=== PATIENT | female | born 1995 | race Caucasian/White ===

== ENCOUNTER → 2018-01-17 16:33 | Outpatient (CLI) | payer SELFPAY ==
[2018-01-17 17:47] LABS: Thyroid Stim Hormone (TSH) 2.16 uIU/mL (0.358-3.74)
== END ==
PROVIDERS: Visit Provider Obstetrics & Gynecology
DX: N92.6 Irregular menstruation, unspecified (principal)
CPT/HCPCS: 36415; 84443

== ENCOUNTER → 2018-11-12 14:30 | Outpatient (CLI) | payer SELFPAY ==
[2018-11-12 17:28] LABS: Chlamydia Trachomatis by PCR Negative (Negative); Neisserai gonorrhoeae by PCR Negative (Negative); Probe Check PASS; Sample Adequacy Control PASS; Specimen Processing Control PASS
[2018-11-17 14:25] LABS: HPV Reflexed? NOT INDICATED
== END ==
PROVIDERS: Visit Provider Obstetrics & Gynecology
DX: Z12.4 Encounter for screening for malignant neoplasm of cervix (principal); Z11.3 Encounter for screening for infections with a predominantly sexual mode of transmission
CPT/HCPCS: 87491; 87591; 87624; 88175; G0145

== ENCOUNTER → 2018-11-26 09:51 | Outpatient (CLI) | payer SELFPAY ==
[2018-11-26 10:46] LABS: Absolute Lymphocyte Count 1.41 X10^3/ul (0.83-4.51); Absolute Neutrophil Count 6.8 X10^3/uL (2.0-7.7); Basophil# 0.02 X10^3/uL; Basophil% 0.2 % (0-1); Eosinophils% 1.1 % (0-5); Hematocrit 36.9 % (37-47); Hemoglobin 12.7 g/dl (12.0-15.0); Lymphocyte # 1.41 X10^3/ul (4.0); Lymphocyte % 16.1 % (19-41); Mean Corp Hgb Conc 34.4 g/gl (32-36); Mean Corpuscular Hgb 30.7 pg (27.0-32.0); Mean Corpuscular Volume 89.1 fL (81-99); Mean Platelet Vol. 10.2 fl (6.2-12.0); Monocyte# 0.39 X10^3/uL; Monocyte% 4.4 % (0-10); Neutrophil # 6.78 X10^3/uL (2.7-7.7); Neutrophil % 77.4 % (47-70); Platelet Count 233 K/mm3 (150-450); Red Blood Count 4.14 M/mm3 (4.2-5.4); White Blood Count 8.8 K/mm3 (4.4-11.0)
[2018-11-26 10:48] LABS: POSITIVE COUNT NO; POSITIVE DIFFERENTIAL NO; POSITIVE MORPHOLOGY NO
[2018-11-26 10:49] LABS: Color, Urine Yellow (Yellow); Glucose, Dipstick 250 mg/dl (Normal); Ketone-Dipstick 50 mg/dl (Negative); Leukocyte Esterase-Dipstick 500 /ul (Negative); Nitrite-Dipstick Negative (Negative); Occult Blood-Urine 10 /ul (Negative); Protein-Dipstick 15 mg/dl (Negative); Specific Gravity, Urine 1.025 (1.002-1.030); Urine Bilirubin Dipstick Negative (Negative); Urine Clarity Sl. Cloudy (Clear); Urine Urobilinogen Normal (Normal)
[2018-11-26 11:21] LABS: Thyroid Stim Hormone (TSH) 1.23 uIU/mL (0.358-3.74)
[2018-11-26 11:54] LABS: HIV - WCH Non-Reactive (Nonreactive); Rubella IgG 18.1 IU/mL
[2018-11-26 18:04] LABS: Hemoglobin A1c 4.1 % (4.2-6.3)
[2018-11-27 16:50] LABS: HEPATITIS B SURFACE AG Negative (Negative); Hep C Antibodies <0.1 s/co ratio (0.0-0.9)
[2018-11-28 01:45] LABS: Prenatal RPR NONREACTIVE (NONREACTIVE)
== END ==
PROVIDERS: Visit Provider Obstetrics & Gynecology
DX: Z34.82 Encounter for supervision of other normal pregnancy, second trimester (principal)
CPT/HCPCS: 36415; 81002; 83036; 84443; 85025; 86703; 86762; 86803; 87086; 87088; 87340

== ENCOUNTER → 2019-03-18 13:08 | Outpatient (CLI) | payer SELFPAY ==
[2019-03-18 14:54] LABS: Glucose Challenge Gest 1H 50g 155 mg/dL (70-140)
[2019-03-18 14:55] LABS: Hematocrit 34.3 % (37-47); Hemoglobin 11.2 g/dL (12.0-15.0); Mean Corp Hgb Conc 32.7 g/dL (32-36); Mean Corpuscular Hgb 30.3 pg (27.0-32.0); Mean Corpuscular Volume 92.7 fL (81-99); Mean Platelet Vol. 10.5 fl (6.2-12.0); Platelet Count 211 K/mm3 (150-450); RBC Distribution Width CV 15.4 % (11.6-14.6); RBC Distribution Width SD 52.2 fl (35.1-43.9); White Blood Count 9.7 K/mm3 (4.4-11.0)
== END ==
PROVIDERS: Visit Provider Obstetrics & Gynecology
DX: Z34.83 Encounter for supervision of other normal pregnancy, third trimester (principal)
CPT/HCPCS: 36415; 82950; 85027

== ENCOUNTER → 2019-03-25 07:04 | Outpatient (CLI) | payer SELFPAY ==
[2019-03-25 08:00] LABS: Glucose GTT-Gestation. Fasting 96 mg/dL (<105)
[2019-03-25 09:05] LABS: Glucose GTT-Gestational 1 Hr 237 mg/dL (<190)
[2019-03-25 09:58] LABS: Glucose GTT-Gestational 2 Hr 235 mg/dL (<165)
[2019-03-25 11:26] LABS: Glucose GTT-Gestational 3 Hr 137 L (<145)
== END ==
PROVIDERS: Family Provider Orthopaedic Surgery; PCP Orthopaedic Surgery; Referring Provider Obstetrics & Gynecology; Visit Provider Obstetrics & Gynecology
DX: O24.912 Unspecified diabetes mellitus in pregnancy, second trimester (principal); Z3A.00 Weeks of gestation of pregnancy not specified
CPT/HCPCS: 36415; 82951; 82952

== ENCOUNTER 2019-04-15 15:30 | Outpatient (RCR) | payer SELFPAY | END 2019-04-15 23:59 | disposition home or self-care (01) | LOC: DC 15:30 | PROVIDERS: Family Provider Orthopaedic Surgery; PCP Orthopaedic Surgery; Visit Provider Obstetrics & Gynecology | DX: Z71.3 Dietary counseling and surveillance (principal); O24.410 Gestational diabetes mellitus in pregnancy, diet controlled; Z3A.00 Weeks of gestation of pregnancy not specified | CPT/HCPCS: 97802 ==

== ENCOUNTER → 2019-05-20 13:30 | Outpatient (CLI) | payer SELFPAY | PROVIDERS: Family Provider Orthopaedic Surgery; PCP Orthopaedic Surgery; Visit Provider Obstetrics & Gynecology | DX: Z36.85 Encounter for antenatal screening for Streptococcus B (principal) | CPT/HCPCS: 87081 ==

== ENCOUNTER 2019-06-10 06:50 | Inpatient (IN) | payer SELFPAY ==
[2019-06-10] MEDS: Lactated Ringers 1,000 ML 50 ML IV (07:40)
[2019-06-10] MEDS: Oxytocin 30 units/NS 500 ml 30 UNITS/500 ML IV.SOLN IV (07:47)
[2019-06-10 07:58] LABS: Absolute Lymphocyte Count 1.13 X10^3/uL (0.83-4.51); Absolute Neutrophil Count 6.5 X10^3/uL (2.0-7.7); Basophil# 0.05 X10^3/uL; Basophil% 0.6 % (0-1); Eosinophil# 0.07 X10^3/uL; Eosinophils% 0.8 % (0-5); Hematocrit 35.3 % (37-47); Hemoglobin 11.9 g/dL (12.0-15.0); Lymphocyte # 1.13 X10^3/ul (4.0); Mean Corp Hgb Conc 33.7 g/dL (32-36); Mean Corpuscular Hgb 30.7 pg (27.0-32.0); Mean Corpuscular Volume 91.2 fL (81-99); Mean Platelet Vol. 10.7 fl (6.2-12.0); Monocyte% 8.1 % (0-10); NRBC Flagged by Analyzer 0 % (0-5); Neutrophil # 6.46 X10^3/uL (2.7-7.7); Neutrophil % 74.6 % (47-70); Platelet Count 184 K/mm3 (150-450); RBC Distribution Width CV 15.9 % (11.6-14.6); Red Blood Count 3.87 M/mm3 (4.2-5.4); White Blood Count 8.7 K/mm3 (4.4-11.0)
[2019-06-10 08:09] VITALS: BMI 32.5
--- NOTE | 2019-06-10 08:34 | HP.PCM_ITS ---
History and Physical Date of Admission: 06/10/19 [facility] [place] ANTEPARTUM RECORD - HISTORY AND PHYSICAL (06/10/2019) Name: MIKAYLA MUÑOZ History of This : This is a 24-year-old patient who presents for induction at 39 weeks gestation. care has been remarkable for diet controlled gestational diabetes. OB Physician: ANANYA 's Physician: PED LEAD INFORMATICA DEVELOPER ...................................................................... : 1995 Age: 24 Address: [address] [place] [address] Phone: (h) [phone] ([phone] Insurance Carrier: Emergency Contact: ARCADIO MUÑOZ [phone] ...................................................................... Final SUGAR: 06/12/19 By Ultrasound: 11 weeks 5 days PARITY: (G-Total Pregnancies P-Fullterm,Premature,Induced AB,Spont AB, Ectopics, Multiple,Living) SUGAR CONFIRMATION: By LMP: 09/08/18 By First Ultrasound Exam: 06/12/19 Final SUGAR: 06/12/19 GBS: Original Ordering Provider: Cynthia WALTERS Culture Group B Beta Streptococcus is not isolated. Rublla titer (>10 immune)--Jan 30 2011: 12 OB PROBLEM LIST: abnormal glucola 155 3 hr GTT ABNORMAL. Results to chart on 03/27/19 ALLERGIC to LATEX! 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 Bring in sugar record to PNV MSAFP and CF testing declined ALLERGIES: Latex Generalized rash NKDA MEDICATIONS: 28 mg iron-800 mcg tablet One pill by mouth once a day SOCIAL HISTORY: Smoking - Never Alcohol Use - denies drinking Diet - no special diet Lifestyle - moderate stress lifestyle and Exercise - minimal Employer - [employer] Job Description - [employer] Illicit Drug Use - denies use of street drugs Sexual Activity - and [employer] Residence - lives with Place of - [place], [place] Hours Worked - 20 WK Spouse-Sig Other Name - Arcadio Spouse-Sig Other Occupation - [employer] Spouse-Sig Other Phone No - [phone] Children Name(s) - Cheryl(12) PRIOR DELIVERY HISTORY DEL DATE GEST LAB WT LB WT OZ TYPE ANES LABOR TX 12 Jul 12 [phone] Vag Epidural No ANTEPARTUM FLOW CHART VISIT GE RTC FU F F KS U U DATE WK MD WKS HT PN HR M SS BP ED WT KS GL D EF ST __ ____ ___ __ __ ___ __ __ __ ___ __ __ __ ___ __ 09 May CH 6 40 V + + 120/80 sl 177 tr - 1 25 hi 04 May JMW 1 38 V + + 114/72 sl 177 - - 2 50 -2 27 May JMW 1 37 V + + 120/62 0 175 tr - S May JMW 1 36 V + + 104/78 0 175 - - 1 50 -2 May JMW 1 35 + + 104/80 0 175 - - 30 Mar JMW 2 34 + + 100/80 sl 174 - - 16 Apr 30 JMW 2 32 V + + 100/60 sl 176 - - 30 Mar 29 ELB 2 29 - + + 112/70 sl 178 - - 18 Mar 27 JMW 2 28 + + 122/64 0 179 - - Feb 20 JMW 4 25 + + 110/70 0 176 - 1+ Jan 16 JMW 4 20 + + 134/70 0 174 tr - 26 Dec 13 JMW 4 15 + + 138/68 0 172 - - November 08 JMW 4 on 118/70 171 - - ANTEPARTUM NOTE(S): Jun 08 2019: feeling well. Cervix check. Jun 03 2019: Ctxs-occas, Good FM May 27 2019: feeling well. Cervix check. May 20 2019: GBS and LARC done today. May 14 2019: feeling well. Apr 29 2019: feeling well., BSs ok Apr 15 2019: feeling well., blood sugars OK Mar 30 2019: feeling well. Asking about gestational diabetes. Mar 18 2019: CBC,OGCT Today,Good FM,Feeling Well Feb 18 2019: feeling well. Glucola given. Jan 21 2019: Sono Today,Good FM,Feeling Well Dec 24 2018: Fatigue and Nausea Better,Declines AFP,CF Nov 26 2018: Doing Well COMPREHENSIVE ANTEPARTUM NOTE(S): Jun 08 2019: (f,m*) here today for routine PNV and requesting induction after speaking with Dr. Solano about it last week. SVE 07/25/high soft mid. For first she was induced with a hoskins bulb and pitocin at only 2cm. After reviewing cytotec vs hoskins and pitocin she wishes to come in AM on 06/10 for hoskins and pitocin induction with Dr. Solano. If he is education reporter she prefers him only for delivery. Called L, she is to report at 7am Saturday morning. Consents signed. FHR 138. +FM. Denies ROM or bleeding. - May 26 2019: H taken to OB. tkg May 14 2019: Feeling well; reports active FM; frequent BH UCs, denies VB, LOF; discussed warning signs, s/s Labor, when to call/come in; blood glucose numbers reviewed, 25 percent slightly above target, pt states was advised did not need to check fasting any longer; reviewed w/Dr. Solano RTO 1 week for PNV, GBS swab - KVW Apr 15 2019: Met with construction representative two weeks. Reports fasting blood sugar in the 80s, reports nothing higher than 125 for post prandials. Left log at home, but instructed to bring in for future visits. Rx given for more glucometer strips. +FM. FHR 140. No complaints or concers this visit. Reviewed ROM, bleeding, or regular UC to call or report to ER. - Mar 30 2019: Reviewed gestational diabetes. Has not made appt yet with construction representative. Recommend watch CHOs. EB Mar 20 2019: Hgb 11.2 g/dl. Glucola 155 needs 3 hr GTT. EB Mar 18 2019: Feeling well; reports active FM; denies UCs, VB, LOF; 1 hour Glucola and bloodwork drawn today; discussed warning signs, s/s PTL; RTO 2 weeks for PNV - KVW Feb 18 2019: Feeling well; reports active FM, denies UCs, VB, LOF; discussed s/s PTL, s/s to report; considering , encouraged practice class. Glucola at next visit Nov 26 2018: Mikayla is here for her NOB visit at 11 w 5 d, she is a with an SUGAR of 06/12/2019. US completed, and she will see Dr. Solano for a PNV and have labs drawn following NOB visit. Office practice patterns reviewed, including labs that will be collected today. Emergencies/danger signs to report, round ligament pain, reporting s/s of a UTI, and common OTC medications approved/not approved for use during reviewed. She and her , Arcadio, have a 7 year old daughter. Her daughter was delivered at [facility] following induction of labor. Past history updated. Delivery at [facility] is planned, she is undecided about an epidural, and states that that while she is undecided about feeding method, she will likely formula feed. [facility] sibling class and guided group tours discussed, times and dates for tour provided. Mikayla states that she is feeling pretty well now, she relates much more nausea last week. Encouraged small frequent meals with protein included throughout the day, and adequate water hydration of at least 1 gallon per 24 hours. She is able to take an OTC vitamin and tolerates this well. Mikayla is a non-smoker, and denies use of drugs or ETOH. Genetic Screening completed. She declines MSAFP and CF testing, consent signed as such. Dietary and water needs reinforced, including recommended weight gain, caloric needs, limiting empty calories, and limiting caffeine to one cup a day. Printed guide for food safety provided with review. Kegel exercises explained. Reviewed recommended physical activity, and lifting restrictions. Mikayla states that she understands all information provided during NOB visit, and has no questions following same. AW New Nov 13 2018: GC and chlamydia are NEG. EB Nov 12 2018: Mikayla presents here today for Missed Menses appointment. 23 y.o. G 2 P 1 non-smoker with regular menses after use of Prometrium, with LMP of 09-08-18 lasting 5 days. UPT is positive today in our Office. Presents at 9 weeks 2 days with an approximate SUGAR of 12-16-19 and plans at [facility]. Denies spotting/bleeding thus far in . Reports daily nausea and admits she would like to try keeping it under control without an Rx if possible. Currently taking an OTC Vitamin and Educational Materials given. Has never had a pap screening with same set up for today. Medication list up-dated. LATANYA Nov 12 2018: ok REVIEW OF SYSTEMS: GENERAL - Denies fever, or chills SKIN - Denies rash, new skin lesions, or change in moles EYES - Denies blurred vision, or change in visual acuity EARS - Denies ear pain, or difficulty hearing NOSE - Denies nasal congestion, discharge, or bleeding MOUTH - Denies sore throat, or difficulty swallowing NECK - Denies pain or swelling RESPIRATORY - Denies shortness of breath, cough, wheezing CARDIOVASCULAR - Denies palpitations, chest pain, orthopnea, PND, peripheral edema, syncope or claudication GASTROINTESTINAL - Denies nausea, vomiting, diarrhea, constipation, Denies abdominal pain, melena and or bright red blood GENITOURINARY - Denies dysuria, frequency of urination, urgency, or hesitancy MUSCULOSKELETAL - Denies joint or muscle pain, or back pain NEUROLOGICAL - Denies localized numbness, weakness, or tingling PSYCHIATRIC - Denies depression, anxiety, substance abuse or suicide attempts ENDOCRINE - Denies heat or cold intolerance, weight loss or gain, increasing thirst HEMATO-IMMUNOLOGIC - Denies easy bruising, bleeding, oral ulcerations or recurrent infections GENETICS SCREENING: Age 35+ years: No Thalassemia: No Neural Tube Defect: No Down Syndrome: No DORIS-SACHS: No Sickle Cell Disease: No Hemophilia: No Musc. Dystrophy: No Cystic Fibrosis: No-declines screening [place] Chorea: No Mental Retardation: No Fragile X: No Other genetic: No Other defects: No SABs/still births: No Drugs since LMP: No Comments: FOB's sister has severe developmental disabilities INFECTION HISTORY: High risk AIDS: No High risk Hepatitis: No Exposed to TB: No Exposed to Herpes: No Rash/viral illness since LMP: No History of STD: No MENSTRUAL HISTORY: *Menses Amount/Duration: 5 daysMenses Regularity: RegularFrequency: monthlyBCP's at Conception: NoMenarche (Age Onset): 10HCG+: 12/26/2010* PAST SUMMARY: PARITY: 1. Total Pregnancies............ 2 2. Full Term Pregnancies........ 1 3. Premature.................... 0 4. Abortions - Induced.......... 0 5. Abortions - Spontaneous...... 0 6. Ectopics..................... 0 7. Multiple Births.............. 0 8. Living Children.............. 1 PAST #1: Date of :.................. 07/12/11 Gestation Weeks:................ 39 Length of labor(hours):......... 9 Sex:............................ F Weight-lbs:............... 5 Weight-oz:................ 11 Type of Delivery:............... Vag Type of Anesthesia:............. Epidural Place of Delivery:.............. [facility] Treatment of Labor?:.... No Comment: IOL PHYSICAL EXAMINATION General Appearence: 24 yo female in no acute distress Vital Signs: AF, VSS Heart: RRR without rubs or gallops Lungs: CTA x 2 Breasts: deferred Abdomen: gravid Pelvis: Cervix: 4 cm 50% effaced; artificial rupture membranes with clear fluid Presentation: cephalic Station: -2 Fetus: Size: AGA Movement: present Heart: present Labs for : MIKAYLA MUÑOZ since 09/15/2018 ORDER DATEIN DESCRIPTION VALUE UNITS RANGE A+ COMMENT CBC W/DIFF, AUTOMATED 06/10/19 NOTE Original Ordering Provider: RENETTA Pedraza WBC 8.7 K/mm3w 4.4-11.0 RBC 3.87 M/mm3 4.2-5.4 L HGB 11.9 g/dL 12.0-15.0 L HCT 35.3 % 37-47 L MCV 91.2 fL 81-99 MCH 30.7 pg 27.0-32.0 MCHC 33.7 g/dL 32-36 RDW CV 15.9 % 11.6-14.6 H RDW SD 53.0 fl 35.1-43.9 H PLT 184 K/mm3w 150-450 MPV 10.7 fl 6.2-12.0 NEUT% 74.6 % 47-70 H LY% 13.0 % 19-41 L MONO% 8.1 % 0-10 EO% 0.8w % 0-5 BASO% 0.6 % 0-1 IM GRAN % 2.900 % 0.0-0.9 H IG% - Immature Granulocytes (promyelocytes, myelocytes and metamyelocytes) > 1% indicates that a LEFT SHIFT is Present. ABSOLUTE NEUT 6.5 X10 3/uL 2.0-7.7 ABSOLUTE LYMPH 1.13 X10 3/uL 0.83-4.51 NRBC, FLAGGED 0 % 0-5 CULTURE, GROUP B STREPTOCOCCUS 05/20/19 NOTE Original Ordering Provider: Cynthia Solano ROMEO Culture Group B Beta Streptococcus is not isolated. Reviewed by CYNTHIA GESTATIONAL GTT 3HR 100G 03/25/19 NOTE Original Ordering Provider: Cynthia Solano GLU GTT-FASTING 96w mg/dL <105 GLUCOSE TOLERANCE TEST FOR Reference Interval GESTATIONAL DIABETES Fasting <105 mg/dL 1 hour <190 mg/dl 2 hour <165 mg/dl 3 hour <145 mg/dl GLU GTT- 1HR 237 mg/dL <190 H GLU GTT- 2HR 235 mg/dL <165 H GLU GTT- 3HR 137 L <145 Reviewed by CYNTHIA CBC-COMPLETE BLOOD CNT NO DIFF 03/18/19 NOTE Original Ordering Provider: Cynthia Solano WBC 9.7 K/mm3 4.4-11.0 RBC 3.70 M/mm3 4.2-5.4 L HGB 11.2 g/dL 12.0-15.0 L HCT 34.3 % 37-47 L MCV 92.7 fL 81-99 MCH 30.3 pg 27.0-32.0 MCHC 32.7 g/dL 32-36 RDW CV 15.4 % 11.6-14.6 H RDW SD 52.2 fl 35.1-43.9 H PLT 211 K/mm3 150-450 MPV 10.5 fl 6.2-12.0 Reviewed by MATHEW GLUCOSE CHALLENGE GEST 1H 50G 03/18/19 NOTE Original Ordering Provider: Cynthia Solano GLU GEST 50G 1H 155 mg/dL 70-140 H Reviewed by MATHEW CULTURE, URINE 11/26/18 NOTE w Original Ordering Provider: Cynthia Solano PLEASE RUN ON SPECIMEN IN LAB. Urine Culture ORGANISM 1: Mixed Gram Pos AND Gram Neg Org [place] Count 11,000-25,000 MIX CULTURE Mixed contaminants. Submit a new specimen if indicated. Reviewed by CYNTHIA RPR 11/26/18 NOTE Original Ordering Provider: Cynthia Solano RPR NONREACTIVE NONREACTIVE Reviewed by CYNTHIA HEPATITIS C ANTIBODIES 11/26/18 NOTE Original Ordering Provider: Cynthia Solano HEP C AB <0.1 s/co ratio 0.0-0.9 Negative: < 0.8 Indeterminate: 0.8 - 0.9 Positive: > 0.9 The CDC recommends that a positive HCV antibody result be followed up with a HCV Nucleic Acid Amplification test (026130). Reviewed by CYNTHIA HEPATITIS B SURFACE AG 11/26/18 NOTE Original Ordering Provider: Cynthia Solano HB SURF AG Negative Negative Performed at: [address] [id number] Employment Specialist: Gen Geller PhD, Phone: [phone] Reviewed by CYNTHIA HEMOGLOBIN A1C 11/26/18 NOTE Original Ordering Provider: Cynthia Solano HGB A1C 4.1 % 4.2-6.3 L Reviewed by CYNTHIA HIV - [facility] 11/26/18 NOTE Original Ordering Provider: Cynthia montes HIV - [facility] Non-Reactive Nonreactive Reviewed by CYNTHIA RUBELLA IGG 11/26/18 NOTE Original Ordering Provider: Cynthia Solano RUBELLA IGG 18.1 IU/mL Antibody results Interpretation of Immune Status < 5 IU/ml Presumed Non-immune 5 - < 10 IU/ml Equivocal > or = 10 IU/ml Presumed Immune Reviewed by CYNTHIA T AND S-NO CHARGE W/PNP 11/26/18 Reason for Type AND Screen/Red Cells: Surgery? N [facility]~[address] [place], [address]~ BLOOD TYPE GEL A POSITIVE N AB SCREEN GEL NEGATIVE N Reviewed by CYNTHIA THYROID STIM HORMONE (TSH) 11/26/18 NOTE Original Ordering Provider: Cynthia Solano TSH 1.23 uIU/mL 0.358-3.74 Reviewed by CYNTHIA URINALYSIS, ROUTINE (DIPSTICK) 11/26/18 NOTE Original Ordering Provider: Cynthia Rojaszeinab COLOR Yellow w Yellow CLARITY Sl. Cloudy Clear GLUCOSE, UR 250 mg/dl Normal H BILIRUBIN URINE Negative mg/dL Negative KETONE UR 50 mg/dl Negative H SP.GR. DIPSTX 1.025 1.002-1.030 PH UR 6.0 5.0 - 8.0 PROT DIPSTX 15 mg/dl Negative H UROBILIw Normal mg/dl Normal NITRITE UR Negative Negative OCCULT BLOOD-UR 10 /ul Negative H LEUK ESTERASE 500 /ul Negative H Reviewed by CYNTHIA CBC W/DIFF, AUTOMATED 11/26/18 NOTE Original Ordering Provider: Cynthia Solano WBC 8.8 K/mm3 4.4-11.0 RBC 4.14 M/mm3 4.2-5.4 L HGB 12.7 g/dl 12.0-15.0 HCT 36.9 %w 37-47 L MCV 89.1 fL 81-99 MCH 30.7 pg 27.0-32.0 MCHC 34.4 g/gl 32-36 RDW CV 14.0 % 11.6-14.6 RDW SD 45.0 fl 35.1-43.9 H PLT 233 K/mm3 150-450 MPV 10.2 fl 6.2-12.0 NEUT% 77.4 % 47-70 H LY% 16.1 % 19-41 L MONO% 4.4 % 0-10 EO% 1.1 % 0-5 BASO% 0.2 % 0-1 IM GRAN % 0.800 % 0.0-0.9 IG% - Immature Granulocytes (promyelocytes, myelocytes and metamyelocytes) > 1% indicates that a LEFT SHIFT is Present. ABSOLUTE NEUT 6.8 X10 3/uL 2.0-7.7 w ABSOLUTE LYMPH 1.41 X10 3/ul 0.83-4.51 Reviewed by CYNTHIA PAP IG W/REFLEX HR HPV APTIMA 11/12/18 NOTE Original Ordering Provider: Cynthia Solano DIAGN . NEGATIVE FOR INTRAEPITHELIAL LESION OR MALIGNANCY. ADEQ . Satisfactory for evaluation. Endocervical and/or squamous metaplastic cells (endocervical component) are present. PERFORM . Brittaney Chavira Sliver Chopper (ASCP) TEST METHOD . This liquid based ThinPrep(R) pap test was screened with the use of an image guided system. COMM . . PAPSMR . The Pap smear is a screening test designed to aid in the detection of premalignant and malignant conditions of the uterine cervix. It is not a diagnostic procedure and should not be used as the sole means of detecting cervical cancer. Both false-positive and false-negative reports do occur. HPV RFLX . The HPV DNA reflex criteria were not met with this specimen result therefore, no HPV testing was performed. Performed at: - [facility] [id number] Employment Specialist: Naz Talamantes MD, Phone: [phone] Reviewed by MATHEW GARCIA/DIANN [facility] BY PCR 11/12/18 NOTE Original Ordering Provider: Cynthia BRYANT [facility] PCR Negative Negative NG BY PCR Negative Negative Reviewed by MATHEW Impression/Plan: Term intrauterine for induction. Preparations in progress for delivery.
[2019-06-10 09:21] LABS: Bedside Glucose 91 mg/dL (70-110)
[2019-06-10 09:21] LABS: Bedside Glucose 93 mg/dL (70-110)
[2019-06-10] MEDS: Lactated Ringers 500 ML 999 ML IV (11:37)
[2019-06-10] MEDS: Nalbuphine 10 MG/ML Ampul IV (11:49)
[2019-06-10 13:21] LABS: Bedside Glucose 90 mg/dL (70-110)
[2019-06-10 13:21] LABS: Bedside Glucose 96 mg/dL (70-110)
[2019-06-10] MEDS: Oxytocin 30 units/NS 500 ml 30 UNITS/500 ML IV.SOLN 334 UNITS IV (15:16)
--- NOTE | 2019-06-10 15:26 | PCM.OPRPT ---
Vaginal Delivery Maternal Presentation: Elective Induction Method of Induction: Pitocin, Amniotomy Amniotic Membrane Rupture Type: Artificial Amniotic Fluid Description: Clear Final SUGAR: 06/12/19 Final SUGAR Source: US <20 weeks Gestational age: 39 Weeks and 5 Days Date of Procedure: 06/10/19 Pre-Operative Diagnosis: IUP, Diet Controlled Gestational Diabetes Post-Operative Diagnosis: IUP, Diet Controlled Gestational Diabetes Surgery/ Procedure Performed: Spontaneous Vaginal Delivery Type of Anesthesia: None Description of Procedure: Spontaneous vaginal delivery of a viable male infant with Apgars of 8/9 from an occiput anterior presentation with clear amniotic fluid and normal three-vessel placenta. True knot in cord. No episiotomy. First-degree midline laceration repaired with 3-0 Rapide suture. Sponges okay. Delivery physician: Alfonzo Solano MD. Presentation: Vertex Placental Delivery Description: Spontaneous Placenta Disposition: [facility] Cord Vessel Description: 3 Vessels Cord Entanglement: None, True Knot(s) - x 1 Estimated Blood Loss: 250 cc Infant A gender: Male (1 minute): 8 (5 minute): 9 Episiotomy Description: None Laceration: Midline, 1st degree Medications given after delivery: IV Pitocin Complications: None
--- NOTE | 2019-06-10 15:29 | DCINST_ITS ---
Discharge Diet: No Restrictions Discharge Activity: May Shower, May Take a Tub Bath May resume sexual activity in: 4-6 weeks Additional Activity Instructions:: Nothing in the vagina for 4-6 weeks. You may return to work/school in 6 weeks. Call your doctor if you observe: Fever of 101 or Higher, Inability to urinate, Inability to have a bowel movement, Using more than one pad per hour Additional Instructions: If you experience any of the following, contact your healthcare provider. * Bleeding that soaks a pad every hour for 2 hours * Unrelieved incision or abdominal pain * Swelling, redness, discharge or bleeding from your incision or episiotomy site * Your incision begins to separate * Problems urinating (including inability to urinate or burning while urinating). * Visual changes * Severe headache * Flu-like symptoms * Pain or redness in one of both of your breasts * Pain, warmth, tenderness or swelling in your legs, especially the calf area * Frequent nausea and vomiting * Symptoms of depression or anxiety If you experience any of the following, call 911 or go to the nearest Emergency Room. * Chest pain * Problems breathing * Seizure activity * Partial or complete paralysis of a body part, slurred speech, weakness or drooping of the face, or a sudden inability to walk or hold your balance Allergies/Adverse Reactions: Allergies Latex, Natural Rubber Allergy (Unverified 06/10/19 08:06) Rash Medications to take at Discharge Vits [Prenatabs FA] 1 tab PO DAILY 06/10/19 Please Follow Up With: Alfonzo Solano MD - [phone] When: Call to make an appointment with your doctor in 6 weeks. Primary Care Physician: Diego Mcintosh MD [Primary Care Provider] - Test Results: Test results from this visit will be discussed in further detail at your follow- up appointment, if applicable.
--- NOTE | 2019-06-10 15:29 | PCM.DCVAG ---
Discharge Diet: No Restrictions Discharge Activity: May Shower, May Take a Tub Bath May resume sexual activity in: 4-6 weeks Additional Activity Instructions:: Nothing in the vagina for 4-6 weeks. You may return to work/school in 6 weeks. Call your doctor if you observe: Fever of 101 or Higher, Inability to urinate, Inability to have a bowel movement, Using more than one pad per hour Additional Instructions: If you experience any of the following, contact your healthcare provider. Bleeding that soaks a pad every hour for 2 hours Unrelieved incision or abdominal pain Swelling, redness, discharge or bleeding from your incision or episiotomy site Your incision begins to separate Problems urinating (including inability to urinate or burning while urinating). Visual changes Severe headache Flu-like symptoms Pain or redness in one of both of your breasts Pain, warmth, tenderness or swelling in your legs, especially the calf area Frequent nausea and vomiting Symptoms of depression or anxiety If you experience any of the following, call 911 or go to the nearest Emergency Room. Chest pain Problems breathing Seizure activity Partial or complete paralysis of a body part, slurred speech, weakness or drooping of the face, or a sudden inability to walk or hold your balance Allergies/Adverse Reactions: Allergies Latex, Natural Rubber Allergy (Unverified 06/10/19 08:06) Rash Medications to take at Discharge Vits [Prenatabs FA] 1 tab PO DAILY 06/10/19 Please Follow Up With: Alfonzo Solano MD - [phone] When: Call to make an appointment with your doctor in 6 weeks. Primary Care Physician: Diego Mcintosh MD [Primary Care Provider] - Test Results: Test results from this visit will be discussed in further detail at your follow-up appointment, if applicable.
[2019-06-10 17:45] LABS: Bedside Glucose 98 mg/dL (70-110)
[2019-06-10] MEDS: 0.9% Saline Lock 10 ML Syringe IV (17:50)
[2019-06-10 18:15] LABS: Bedside Glucose 187 mg/dL (70-110)
[2019-06-10 20:18] VITALS: BP 91/59; PULSE 101; RESP 14; TEMP 37.1; O2SAT 97
[2019-06-10] MEDS: Ibuprofen 600 MG Tablet PO (22:37)
[2019-06-10] MEDS: Acetaminophen 500 MG Tablet 1000 MG PO (23:38)
[2019-06-11 00:49] VITALS: BP 115/57; PULSE 100; RESP 18; TEMP 37.1
[2019-06-11 04:42] VITALS: BP 102/58; PULSE 88; RESP 14; TEMP 37.2
[2019-06-11] MEDS: Ibuprofen 600 MG Tablet PO ×2 (04:51→21:11)
--- NOTE | 2019-06-11 06:23 | PN.OBGYN_ITS ---
Subjective: Pain well controlled, tolerating diet, passing flatus; bedside, bottle feeding well; pt not planning to use contraception, OK with potential for closely spaced future pregnancies Objective: AVSS Breasts soft Fundus firm, midline, u/2, lochia small Perineal repair well approximated, minimal edema, no bruising, drainage, redness noted - Physical Exam Vitals/I&O's: Vital Signs Temp Pulse Resp BP Pulse Ox 98.9 F 88 14 102/58 L 97 06/11/19 04:42 06/11/19 04:42 06/11/19 04:42 06/11/19 04:42 06/10/19 20:18 Oxygen Delivery Method Room Air Weight: 178 lb Body Mass Index (BMI) 32.5 Intake and Output for Last 24 Hours 06/09/19 06/10/19 06/11/19 23:59 23:59 23:59 Intake Total 1596.48 / 1596.48 Output Total 900 / 900 Balance 1596.48 / 1596.48 -900 / -900 General: Alert, Oriented x3, Cooperative, No apparent distress HEENT: PERRLA, EOMI Oral: Moist Mucosa Neck: Supple Lungs: Clear to auscultation, Normal air movement Cardiovascular: Regular rate, Regular Rhythm Abdomen: Bowel Sounds Present, Soft, Non Tender Extremities: No edema, Capillary Refill Less than 3 Seconds, No Calf Tenderness, Edema Skin: No rashes Musculoskeletal: No Tenderness to Palpation of Joints or Extremities Neurological: Cranial nerves II-XII grossly intact, Deep Tendon Reflexes 2+/4 and Symmetrical, Neuro grossly intact Psych/Mental Status: Normal Affect, Appropriate Laboratory Results 06/10/19 07:29: POC Glucose 93 06/10/19 07:40: WBC 8.7, RBC 3.87 L, Hgb 11.9 L, Hct 35.3 L, MCV 91.2, MCH 30.7, MCHC 33.7, RDW Std Deviation 53.0 H, RDW Coeff of Ene 15.9 H, Plt Count 184, MPV 10.7, Immature Gran % (Auto) 2.900 H, Neut % (Auto) 74.6 H, Lymph % (Auto) 13.0 L, [place] % (Auto) 8.1, Eos % (Auto) 0.8, Baso % (Auto) 0.6, Absolute Neuts (auto) 6.5, Absolute Lymphs (auto) 1.13, Nucleated RBC % 0 06/10/19 07:40: Blood Type A POSITIVE, Antibody Screen NEGATIVE 06/10/19 08:38: POC Glucose 91 06/10/19 11:57: POC Glucose 96 06/10/19 13:03: POC Glucose 90 06/10/19 14:06: POC Glucose 98 06/10/19 17:47: POC Glucose 187 H Current Medications Acetaminophen (Tylenol) 1,000 mg PO Q8H PRN PRN PRN Reason: Pain Score 1-3/10 Last Admin: 06/10/19 23:38 Dose: 1,000 mg Documented by: Bisacodyl (Dulcolax) 10 mg RECTAL UD PRN PRN Reason: If no BM Dibucaine (Dibucaine) 1 applic TOPICAL TID PRN PRN; Protocol PRN Reason: Discomfort Hydrocortisone (Hytone) 1 applic TOPICAL TID PRN PRN; Protocol PRN Reason: Discomfort Ibuprofen (Motrin) 600 mg PO Q6H PRN PRN PRN Reason: Pain Score 1-3/10 Last Admin: 06/11/19 04:51 Dose: 600 mg Documented by: Methylergonovine Maleate (Methergine) 0.2 mg IM X1 PRN PRN Reason: Excess bleeding/uterine atony Oxycodone HCl (Oxyir) 5 - 10 mg PO Q4H PRN PRN PRN Reason: Pain Score 4-10/10 Senna/Docusate Sodium (Senokot-S, Katie-Colace) 1 - 2 tablet PO DAILY PRN PRN PRN Reason: Constipation Simethicone (Mylicon) 80 mg PO PCHS PRN PRN Reason: Indigestion/Stomach pain Zolpidem Tartrate (Ambien (Generic)) 5 mg PO QHS PRN PRN PRN Reason: Insomnia Medical Necessity - Tobacco Use Smoking Status: Never smoker Assessment/Plan Assessmet: 24yo G2 now P2002 delivered via at 9w6d gestation by L = 11w5d PP Day #1, normal involution, normal course Plan: Discharge teaching completed Discharge home today or tomorrow per pt preference RTO 6 weeks for PP checkup
[2019-06-11 06:41] LABS: Bedside Glucose 83 mg/dL (70-110)
[2019-06-11 09:30] VITALS: BP 121/68; PULSE 74; RESP 14; TEMP 36.5
[2019-06-11 11:40] VITALS: BP 104/52; PULSE 84; RESP 14; TEMP 36.8
[2019-06-11] MEDS: Senna/Docusate Sodium 1 Tablet PO (12:58)
[2019-06-11 16:20] VITALS: BP 104/52; PULSE 82; RESP 16; TEMP 36.7
[2019-06-11 21:05] VITALS: BP 101/58; PULSE 93; RESP 14; TEMP 36.9
[2019-06-12 02:05] VITALS: BP 98/55; PULSE 82; RESP 16; TEMP 36.7
[2019-06-12 08:31] VITALS: BP 113/62; PULSE 90; RESP 16; TEMP 36.6
[2019-06-12] MEDS: Ibuprofen 600 MG Tablet PO (08:45)
--- NOTE | 2019-06-12 10:01 | PCM.PN.OB ---
Subjective: Pain well controlled, tolerating diet, passing flatus; bottle feeding well; no plans for contraception Objective: AVSS Breasts filling Fundus firm, midline, u/1, lochia small Perineal repair healing well - Physical Exam Vitals/I&O's: Vital Signs Temp Pulse Resp BP Pulse Ox 97.8 F 90 16 113/62 97 06/12/19 08:31 06/12/19 08:31 06/12/19 08:31 06/12/19 08:31 06/10/19 20:18 Oxygen Delivery Method Room Air Weight: 178 lb Body Mass Index (BMI) 32.5 Intake and Output for Last 24 Hours 06/10/19 06/11/19 06/12/19 23:59 23:59 23:59 Intake Total 1596.48 / 1596.48 Output Total 1300 / 1300 Balance 1596.48 / 1596.48 -1300 / -1300 General: Alert, Oriented x3, Cooperative, No apparent distress HEENT: PERRLA, EOMI Oral: Moist Mucosa Neck: Supple Lungs: Clear to auscultation, Normal air movement Cardiovascular: Regular rate, Regular Rhythm Abdomen: Bowel Sounds Present, Soft, Non Tender, Non-Distended, Passing Flatus Extremities: No edema, Capillary Refill Less than 3 Seconds, No Calf Tenderness Skin: No rashes Musculoskeletal: No Tenderness to Palpation of Joints or Extremities Neurological: Cranial nerves II-XII grossly intact, Deep Tendon Reflexes 2+/4 and Symmetrical, Neuro grossly intact Psych/Mental Status: Normal Affect, Appropriate, Alert and oriented to time, place, person, mood and affect Current Medications Acetaminophen (Tylenol) 1,000 mg PO Q8H PRN PRN PRN Reason: Pain Score 1-3/10 Last Admin: 06/10/19 23:38 Dose: 1,000 mg Documented by: Bisacodyl (Dulcolax) 10 mg RECTAL UD PRN PRN Reason: If no BM Dibucaine (Dibucaine) 1 applic TOPICAL TID PRN PRN; Protocol PRN Reason: Discomfort Hydrocortisone (Hytone) 1 applic TOPICAL TID PRN PRN; Protocol PRN Reason: Discomfort Ibuprofen (Motrin) 600 mg PO Q6H PRN PRN PRN Reason: Pain Score 1-3/10 Last Admin: 06/12/19 08:45 Dose: 600 mg Documented by: Methylergonovine Maleate (Methergine) 0.2 mg IM X1 PRN PRN Reason: Excess bleeding/uterine atony Oxycodone HCl (Oxyir) 5 - 10 mg PO Q4H PRN PRN PRN Reason: Pain Score 4-10/10 Senna/Docusate Sodium (Senokot-S, Katie-Colace) 1 - 2 tablet PO DAILY PRN PRN PRN Reason: Constipation Last Admin: 06/11/19 12:58 Dose: 1 tablet Documented by: Simethicone (Mylicon) 80 mg PO PCHS PRN PRN Reason: Indigestion/Stomach pain Zolpidem Tartrate (Ambien (Generic)) 5 mg PO QHS PRN PRN PRN Reason: Insomnia Medical Necessity - Tobacco Use Smoking Status: Never smoker Assessment/Plan Assessmet: 24yo G2 now P2002 delivered via at 9w6d gestation by L = 11w5d US PP Day #2, normal involution, normal course Plan: Discharge teaching completed Discharge home today RTO 6 weeks for PP checkup
== END 2019-06-12 10:15 | disposition home or self-care (01) | DRG 807 ==
PROVIDERS: Obstetrics & Gynecology; Admitting Provider Obstetrics & Gynecology; Family Provider Orthopaedic Surgery; PCP Orthopaedic Surgery; Referring Provider Obstetrics & Gynecology; Visit Provider Obstetrics & Gynecology
DX: O24.420 Gestational diabetes mellitus in childbirth, diet controlled (principal); Z37.0 Single live birth; O69.2XX0 Labor and delivery complicated by other cord entanglement, with compression, not applicable or unspecified; O70.0 First degree perineal laceration during delivery; Z3A.39 39 weeks gestation of pregnancy
CPT/HCPCS: 59025; 59050; 82962; 85025; 86850; 86900; 86901; 99218; J7120; A4216; G0378

== ENCOUNTER → 2021-10-30 | Outpatient (CLI) | payer SELFPAY ==
[2021-10-30 13:07] LABS: hCG Titer Quant., Serum < 1 mIU/mL (1-3)
== END | disposition home or self-care (01) ==
LOC: WOBLAB 11:22
PROVIDERS: PCP Orthopaedic Surgery; Visit Provider Obstetrics & Gynecology
DX: N91.2 Amenorrhea, unspecified (principal)
CPT/HCPCS: 36415; 84702

== ENCOUNTER → 2022-03-21 | Outpatient (CLI) | payer SELFPAY ==
[2022-03-21 11:39] LABS: hCG Titer Quant., Serum 4354 mIU/mL (1-3)
== END | disposition home or self-care (01) ==
LOC: PAVLAB 10:28
PROVIDERS: PCP Orthopaedic Surgery; Referring Provider Obstetrics & Gynecology; Visit Provider Obstetrics & Gynecology
DX: N92.0 Excessive and frequent menstruation with regular cycle (principal)
CPT/HCPCS: 36415; 84702

== ENCOUNTER → 2022-03-23 | Outpatient (CLI) | payer SELFPAY ==
[2022-03-23 13:10] LABS: hCG Titer Quant., Serum 5936 mIU/mL (1-3)
== END | disposition home or self-care (01) ==
PROVIDERS: PCP Orthopaedic Surgery; Visit Provider Obstetrics & Gynecology
DX: N92.0 Excessive and frequent menstruation with regular cycle (principal)
CPT/HCPCS: 36415; 84702

== ENCOUNTER → 2022-04-12 | Outpatient (CLI) | payer SELFPAY ==
[2022-04-16 22:06] LABS: Chlamydia By Nucleic Acid AMP Negative (Negative)
[2022-04-17 13:21] LABS: Gonococcus By Nucleic Acid AMP Negative (Negative)
[2022-04-22 15:55] LABS: HPV Reflexed? NOT INDICATED
== END | disposition home or self-care (01) ==
LOC: LAB 16:34 → LABSPEC 16:35
PROVIDERS: PCP Orthopaedic Surgery; Visit Provider Obstetrics & Gynecology
DX: Z34.90 Encounter for supervision of normal pregnancy, unspecified, unspecified trimester (principal); Z12.4 Encounter for screening for malignant neoplasm of cervix
CPT/HCPCS: 87491; 87591; 88175; G0145

== ENCOUNTER → 2022-05-09 | Outpatient (CLI) | payer SELFPAY ==
[2022-05-09 12:53] LABS: Absolute Lymphocyte Count 1.48 X10^3/uL (0.83-4.51); Absolute Neutrophil Count 5.9 X10^3/uL (2.0-7.7); Basophil# 0.05 X10^3/uL; Basophil% 0.6 % (0-1); Eosinophils% 1.3 % (0-5); Hematocrit 35.9 % (37-47); Hemoglobin 12.6 g/dL (12.0-15.0); Lymphocyte # 1.48 X10^3/ul (0.83-4.51); Lymphocyte % 18.6 % (19-41); Mean Corp Hgb Conc 35.1 g/dL (32-36); Mean Corpuscular Hgb 30.7 pg (27.0-32.0); Mean Corpuscular Volume 87.6 fL (81-99); Mean Platelet Vol. 10.2 fl (6.2-12.0); Monocyte# 0.37 X10^3/uL; Monocyte% 4.7 % (0-10); NRBC Flagged by Analyzer 0 % (0-5); Neutrophil # 5.86 X10^3/uL (2.7-7.7); Neutrophil % 73.7 % (47-70); Platelet Count 222 K/mm3 (150-450); RBC Distribution Width CV 13.7 % (11.6-14.6); RBC Distribution Width SD 43.2 fl (35.1-43.9)
[2022-05-09 13:11] LABS: Glucose Challenge Gest 1H 50g 175 mg/dL (70-140)
[2022-05-09 14:18] LABS: HIV - WCH Non-Reactive (Nonreactive); Hepatitis B Surface Antigen Non-Reactive (Nonreactive); Hepatitis C Antibody Non-Reactive (Nonreactive); Rubella IgG Reactive (Nonreactive); Syphilis Antibodies Non-reactive
== END | disposition home or self-care (01) ==
LOC: LAB 12:27
PROVIDERS: PCP Orthopaedic Surgery; Referring Provider Obstetrics & Gynecology; Visit Provider Obstetrics & Gynecology
DX: Z34.90 Encounter for supervision of normal pregnancy, unspecified, unspecified trimester (principal)
CPT/HCPCS: 36415; 82950; 85025; 86703; 86762; 86780; 86803; 86850; 86900; 86901; 87086; 87088; 87340

== ENCOUNTER → 2022-05-11 | Outpatient (CLI) | payer SELFPAY ==
[2022-05-11 07:37] LABS: Glucose GTT-Gestation. Fasting 92 mg/dL (<105)
[2022-05-11 08:36] LABS: Glucose GTT-Gestational 1 Hr 211 mg/dL (<190)
[2022-05-11 09:42] LABS: Glucose GTT-Gestational 2 Hr 188 mg/dL (<165)
[2022-05-11 10:43] LABS: Glucose GTT-Gestational 3 Hr 132 L (<145)
== END | disposition home or self-care (01) ==
PROVIDERS: PCP Orthopaedic Surgery; Referring Provider Nurse Practitioner Women's Health; Visit Provider Nurse Practitioner Women's Health
DX: Z13.1 Encounter for screening for diabetes mellitus (principal)
CPT/HCPCS: 36415; 82951; 82952

== ENCOUNTER → 2022-06-20 | Outpatient (CLI) | payer SELFPAY ==
--- NOTE | 2022-06-20 12:28 | US_ITS ---
STUDY: SECOND AND THIRD TRIMESTER OBSTETRICAL ULTRASOUND REASON FOR EXAM: Female, 27 years old anatomy. LMP: 02/04/2022. TECHNIQUE: Transabdominal and Transvaginal TECHNICAL QUALITY: Adequate. PRIOR ULTRASOUND: None. FINDINGS: There is a single intrauterine fetus. The fetus is in a breech presentation. There is demonstrated cardiac activity with a heart rate of 150 bpm. There is a normal amniotic fluid volume. The largest amniotic fluid pocket measures 6.5 sided by 3.3 cm. The amniotic fluid index (ELLIS) is within normal limits. The placenta is anterior in location and is not low lying. There are Grade 0 placental changes. The cervix measures 4.6 cm in length. The bilateral adnexal regions are normal. BIOMETRY: BPD: 4.17 cm: 18 weeks, 4 days HC: 15.8 cm: 18 weeks, 5 days AC: 14.61 cm: 19 weeks, 6 days FL: 2.62 cm: 18 weeks, 0 days CI: 76% FL/BPD: 63% FL/HC: FL/AC: 18% HC/AC: 1.08 age by current US: 19 weeks, 3 days. SUGAR by current US: 11/11/2022. Estimated weight: 269 grams, +/- 40 grams, 23 %. Age by LMP: 18 weeks, 5 days. SUGAR by LMP: 11/16/2022. ANATOMY: Gender: Male Cranium: Normal lateral ventricles. Normal choroid plexus. Normal cerebellum. Normal cisterna magna. Normal face, nose and lips. Chest: Normal 4-chamber heart. Abdomen/Pelvis: Normal diaphragm. The stomach is non-visualized. Normal abdominal wall. Normal cord insertion. Normal 3 vessel cord. Normal kidneys. Normal bladder. Spine: Normal cervical spine. Normal thoracic spine. Normal lumbar spine. Normal sacrum. Extremities: Normal bilateral upper extremities. Normal bilateral lower extremities. IMPRESSION: Single live uterine gestation with a mean gestational age of 19 weeks and 3 days. The stomach was not visualized during the procedure. Follow-up examination recommended. Electronically Signed: Regulo Pedersen MD at 14:57 EST , STUDY: FIRST TRIMESTER OBSTETRICAL ULTRASOUND REASON FOR EXAM: Female, 27 years old . Cervical length measurement. LMP: 02/04/2022 TECHNIQUE: Transvaginal TECHNICAL QUALITY: Adequate. PRIOR ULTRASOUND: None. FINDINGS: Cervical length measures 4.6 cm. US/OB Anatomy Scan IMPRESSION: Cervical length measures 4.6 cm. Electronically Signed: Regulo Pedersen MD at 14:58 EST ,
== END | disposition home or self-care (01) ==
LOC: OPUS 12:25
PROVIDERS: PCP Orthopaedic Surgery; Visit Provider Obstetrics & Gynecology
DX: Z34.90 Encounter for supervision of normal pregnancy, unspecified, unspecified trimester (principal); Z3A.19 19 weeks gestation of pregnancy
CPT/HCPCS: 76805; 76817

== ENCOUNTER → 2022-07-11 | Outpatient (CLI) | payer SELFPAY ==
--- NOTE | 2022-07-11 09:02 | US_ITS ---
STUDY: SECOND AND THIRD TRIMESTER OBSTETRICAL ULTRASOUND - LIMITED REASON FOR EXAM: Female, 27 years old anatomy us follow up views LMP: 02/04/2022. PRIOR ULTRASOUND: Comparison is made with prior study dated 06/20/2022. TECHNIQUE: Transabdominal TECHNICAL QUALITY: Adequate. FINDINGS: There is a single intrauterine fetus. The fetus is in a cephalic presentation. There is demonstrated cardiac activity with a heart rate of 140 bpm. There is a normal amniotic fluid volume. The largest amniotic fluid pocket measures 9.8 cm x 3.5 cm. The amniotic fluid index (ELLIS) is within normal limits. The placenta is anterior in location and is not low lying. There are Grade 0 placental changes. The cervix measures 4.2 cm in length. The stomach is visualized on this examination. The stomach is within normal limits. US/OB Limited (No Biometrics) IMPRESSION: Normal anatomic appearance of the stomach. Electronically Signed: Regulo Pedersen MD at 9:51 EST ,
== END | disposition home or self-care (01) ==
LOC: OPUS 08:56
PROVIDERS: PCP Orthopaedic Surgery; Visit Provider Nurse Practitioner Women's Health
DX: Z34.90 Encounter for supervision of normal pregnancy, unspecified, unspecified trimester (principal)
CPT/HCPCS: 76815

== ENCOUNTER → 2022-08-08 | Outpatient (CLI) | payer SELFPAY ==
[2022-08-08 09:40] LABS: Absolute Lymphocyte Count 1.16 X10^3/uL (0.83-4.51); Absolute Neutrophil Count 6.6 X10^3/uL (2.0-7.7); Basophil# 0.06 X10^3/uL; Basophil% 0.7 % (0-1); Eosinophil# 0.07 X10^3/uL; Eosinophils% 0.8 % (0-5); Hematocrit 33.6 % (37-47); Lymphocyte # 1.16 X10^3/ul (0.83-4.51); Lymphocyte % 13.3 % (19-41); Mean Corp Hgb Conc 32.7 g/dL (32-36); Mean Corpuscular Hgb 29.6 pg (27.0-32.0); Mean Corpuscular Volume 90.3 fL (81-99); Mean Platelet Vol. 10.1 fl (6.2-12.0); Monocyte# 0.44 X10^3/uL; NRBC Flagged by Analyzer 0 % (0-5); Neutrophil # 6.63 X10^3/uL (2.7-7.7); Neutrophil % 76.1 % (47-70); Platelet Count 214 K/mm3 (150-450); RBC Distribution Width CV 15.5 % (11.6-14.6); Red Blood Count 3.72 M/mm3 (4.2-5.4); White Blood Count 8.7 K/mm3 (4.4-11.0)
[2022-08-08 10:40] LABS: HIV - WCH Non-Reactive (Nonreactive); Syphilis Antibodies Non-reactive
== END | disposition home or self-care (01) ==
LOC: PAVLAB 09:28
PROVIDERS: PCP Orthopaedic Surgery; Referring Provider Registered Nurse; Visit Provider Registered Nurse
DX: Z34.90 Encounter for supervision of normal pregnancy, unspecified, unspecified trimester (principal)
CPT/HCPCS: 36415; 85025; 86703; 86780

== ENCOUNTER → 2022-10-19 | Outpatient (CLI) | payer SELFPAY ==
--- NOTE | 2022-10-19 09:19 | US_ITS ---
STUDY: SECOND AND THIRD TRIMESTER OBSTETRICAL ULTRASOUND - LIMITED REASON FOR EXAM: Female, 27 years old growth LMP: February 04, 2022 PRIOR ULTRASOUND: July 11, 2022. TECHNIQUE: Transabdominal TECHNICAL QUALITY: Adequate. FINDINGS: There is a single intrauterine fetus. The fetus is in a cephalic presentation. There is demonstrated cardiac activity with a heart rate of 138 bpm. There is a normal amniotic fluid volume. The largest amniotic fluid pocket measures 7.2 cm. The amniotic fluid index (ELLIS) is 16.5 cm. The placenta is anterior There are Grade 1 placental changes. Cervix not visualized. BIOMETRY: BPD: 9 cm: 36 weeks, 4 days HC: 32.5 cm: 36 weeks, 6 days AC: 32.2 cm: 36 weeks, 0 days FL: 6.6 cm: 33 weeks, 6 days Age by LMP: 36 weeks, 5 days. SUGAR by LMP: November 11, 2022. age by prior US: 36 weeks, 5 days. SUGAR by prior US: November 11, 2022. age by current US: 36 weeks, 3 days. SUGAR by current US: Nov 13 2022. Estimated weight: 2745 grams, +/- 412 grams, 29 percentile. 36 week 3 day intrauterine Electronically Signed: Bandar Pritchett MD at 19:40 EDT , US/OB Limited With Biometrics IMPRESSION: undefined
== END | disposition home or self-care (01) ==
PROVIDERS: PCP Orthopaedic Surgery; Referring Provider Nurse Practitioner Women's Health; Visit Provider Nurse Practitioner Women's Health
DX: Z34.90 Encounter for supervision of normal pregnancy, unspecified, unspecified trimester (principal)
CPT/HCPCS: 76816; 87081

== ENCOUNTER 2022-11-07 06:55 | Inpatient (IN) | payer SELFPAY ==
[2022-11-07] VITALS (34 sets, daily range): BP systolic 106–135; BP diastolic 55–69; PULSE 75–98; RESP 14–16; TEMP 36.3–37.2; O2SAT 97–100; BMI 34.0
[2022-11-07] MEDS: Lactated Ringers 1,000 ML 50 ML IV (07:55)
[2022-11-07 08:09] LABS: Absolute Lymphocyte Count 1.08 X10^3/uL (0.83-4.51); Absolute Neutrophil Count 6.3 X10^3/uL (2.0-7.7); Basophil# 0.04 X10^3/uL; Basophil% 0.5 % (0-1); Eosinophil# 0.06 X10^3/uL; Eosinophils% 0.7 % (0-5); Hematocrit 36.5 % (37-47); Hemoglobin 12.1 g/dL (12.0-15.0); Lymphocyte # 1.08 X10^3/ul (0.83-4.51); Lymphocyte % 13.2 % (19-41); Mean Corp Hgb Conc 33.2 g/dL (32-36); Mean Corpuscular Hgb 30.2 pg (27.0-32.0); Monocyte# 0.54 X10^3/uL; Monocyte% 6.6 % (0-10); NRBC Flagged by Analyzer 0 % (0-5); Neutrophil # 6.31 X10^3/uL (2.7-7.7); Neutrophil % 77.4 % (47-70); Platelet Count 203 K/mm3 (150-450); RBC Distribution Width CV 16.4 % (11.6-14.6); RBC Distribution Width SD 53.8 fl (35.1-43.9); Red Blood Count 4.01 M/mm3 (4.2-5.4); White Blood Count 8.2 K/mm3 (4.4-11.0)
[2022-11-07] MEDS: Oxytocin 15 Units/NS 250ml 15 UNITS/250 ML IV.SOLN 2 UNITS IV (08:30)
--- NOTE | 2022-11-07 08:33 | HP.PCM.OB_ITS ---
HPI - General General Date of Admission: 11/07/22 HPI Narrative GRAY MUÑOZ, is a 27 y/o @ 39 weeks 3 days who presents to L&D for IOL due to pre-existing DM on metformin. Maternal Data Information SUGAR Calculator Estimated Delivery Date Method Current WG Current Estimate 11/11/22 LMP (Certain) 39w 3d Other Estimates 11/18/22 Ultrasound #1 38w 3d [facility] Medical History H/O gestational diabetes in prior , currently History of gestational diabetes Home Medications vits,calcium no.78-iron fumarate-folic acid 29 mg-1 mg tablet 1 tab PO DAILY vitamin 06/10/19 [History Last Taken 10/29/22 08:00] metformin 500 mg tablet 1,000 mg PO BID 11/07/22 [History Last Taken 11/06/22 18:30] Allergy/AdvReac Type Severity Reaction Status Date / Time Latex, Natural Rubber Allergy Rash Verified 11/07/22 07:26 Family History Father Heart disease Social History household members: family number of children: 2 current occupation: [employer] Smoking Status: Never smoker alcohol intake: never substance use type: does not use seatbelt use: always do you feel safe at home: Yes additional social history: Rashard- sam History 3 Elective abortions Hx Para 2 Spontaneous abortions Hx # Term Pregnancies Ectopic pregnancies Hx # Pregnancies Multiple births # of living children 2 Past Pregnancies Del. Date Name GA/Weeks Outcome Route Bth Weight Infant Gen Labor Lgth Anesthesia Del Locatn Provider FOB Unknown 2011 Cheryl 39 live - full term 5lbs 11oz Female epidural Raman Rashard Unknown 2018 Jim 39 live - full term 7lbs Male n one [facility] Xiomara Wetzel Delivery Date: Last Updated by: Elisabeth Rogers High Risk (extra fluid on brain) Resolving prior to delivery Delivery Date: Last Updated by: Elisabeth Rogers GDMA Visit Details Expected Delivery Route/Plan Labor Preferences- CB/BF classes: no labor support person: Rashard labor intervention preferences: [] pain management options preferred: limited intervention cut cord/dad catch: cord : yes PP control planned: discussed discussed possible routes of delivery and associated risks: [] special requests: [] Plans Covid status: discussed Flu vaccine: discussed Tdap vaccine: declined Rhogam: NA LARC form signed: Yes Problem list reviewed and updated with the most current plan of care details and appropriate orders placed. Relevant counseling for the gestational age provided. Continue routine care and follow up unless otherwise noted in visit notes/problem list details OB Flowsheet Initial Weight: Not Recorded Date -?-?-?-?-?-?-?-?-?-?-?-?- EGA Weight BP Urine Prot -?-?-?-?-?-?-?-?-?-?-?-?- Glucose FHR FuHt Pres Dilation -?-?-?-?-?-?-?-?-?-?-?-?- Effaced St Visit Note 04/12/22 -?-?-?-?-?--?-?-?-?-?-?-?- 9w 4d 191 lb 111/69 -?-?-?-?-?-?-?-?-?-?-?-?- 180 -?-?-?-?-?-?-?-?-?-?-?-?- SM- CRL cons wit h LMP 05/09/22 -?-?-?-?-?-?-?-?-?-?-?-?- 13w 3d 188 lb 114/72 Negative -?-?-?-?-?-?-?-?-?-?-?-?- Negative 160 -?-?-?-?-?-?-?-?-?-?-?-?- -No Elyse, kaushik leblanc. Confirmed FHT with br US. PNL and GCT today 05/28/22 -?-?-?-?-?-?-?-?-?-?-?-?- 16w 1d 188 lb 124/76 Negative -?-?-?-?-?-?-?-?-?-?-?-?- Negative 170 -?-?-?-?-?-?-?-?-?-?-?-?- MH-No Vb, crampi ng. Reviewed glucose readings and >805WNL. Some elevated were mostly breakfast and discussed diet. RTO 2 weeks 06/12/22 -?-?-?-?-?-?-?-?-?-?-?-?- 18w 2d 187 lb 4 oz 108/72 Nega tive -?-?-?-?-?-?-?-?-?-?-?-?- Negative 150 -?-?-?-?-?-?-?-?-?-?-?-?- JV- pt diagnosed with pre-existing dm due to being diagnosed with abnormal glucose prior to 20 weeks. consulted .anatomy scan scheduled 07/11/22 -?-?-?-?-?-?-?-?-?-?-?-?- 22w 3d 183 lb 8 oz 99/59 -?-?-?-?-?-?-?-?-?-?-?-?- 145 -?-?-?-?-?-?-?-?-?-?-?-?- - no vb/kaushik ng. anatomy now complete. continues on diet controlled DM 08/08/22 -?-?-?-?-?-?-?-?-?-?-?-?- 26w 3d 186 lb 104/72 Negative -?-?-?-?-?-?-?-?-?-?-?-?- Negative 147 26 -?-?-?-?-?-?-?-?-?-?-?-?- MH-No Vb, LOF. G ood FM. Repoerting glucose to Dr Dong and good diet control. Larc 08/24/22 -?-?-?-?-?-?-?-?-?-?-?-?- 28w 5d 186 lb 104/72 Negative -?-?-?-?-?-?-?-?--?-?-?-?- Negative 145 28 -?-?-?-?-?-?-?-?-?-?-?-?- - no VB, LOF, Cxt. +FM. Reports good glycemic control and mood stable. no complaints. labor precautions reviewed. 09/12/22 -?-?-?-?-?-?-?-?-?-?-?-?- 31w 3d 183 lb 2 oz 98/56 Nega tive -?-?-?-?-?-?-?-?-?-?-?-?- Negative 144 31 -?--?-?-?-?-?-?-?-?-?-?-?- MH-No VB, LOF. G ood FM. Now on metformin per Dr Dong and better glucose control. 09/28/22 -?-?-?-?-?-?-?-?-?-?-?-?- 33w 5d 185 lb 2 oz 106/69 -?-?-?-?-?-?-?-?-?-?-?-?- 140 33 -?-?-?-?-?-?-?-?-?-?-?-?- SM- no vb lof go od fm no regular ctx 10/01/22 -?-?-?-?-?-?-?-?-?-?-?-?- 34w 1d 182 lb 3 oz 111/72 Nega tive -?-?-?-?-?-?-?-?-?-?-?-?- Negative 140 -?-?-?-?-?-?-?-?-?-?-?-?- -NST only reac tive 10/05/22 -?-?-?-?-?-?-?-?-?-?-?-?- 34w 5d 185 lb 8 oz 103/69 103/69 Negative -?-?-?-?-?-?-?-?-?-?-?-?- Negative 135 34 -?-?-?-?-?-?-?-?-?-?-?-?- KW- NST reactive . +FM, no lof/vb/ctx. Reports good glucose control. KW- NST reactive. +FM, no lo f/vb/ctx. Reports good glucose control. Discussed GBS 10/08/22 -?-?-?-?-?-?-?-?-?-?-?-?- 35w 1d 184 lb 8 oz 106/72 Nega tive -?-?-?-?-?-?-?-?-?-?-?-?- Negative 140 -?-?-?-?-?-?-?-?-?-?-?-?- BS controlled gr owth us next week 10/11/22 -?-?-?-?-?-?-?-?-?-?-?-?- 35w 4d 183 lb 2 oz 96/66 Nega tive -?-?-?-?-?-?-?-?-?-?-?-?- Negative 140 -?-?-?-?-?-?-?-?-?-?-?-?- -NST only reac tive 10/16/22 -?-?-?-?-?-?-?-?-?-?-?-?- 36w 2d 184 lb 105/70 Negative -?-?-?-?-?-?-?-?-?-?-?-?- Negative 140 -?-?-?-?--?-?-?-?-?-?-?-?- -NST only reac tive. Good glucose control 10/19/22 -?-?-?-?-?-?-?-?-?-?-?-?- 36w 5d 183 lb 8 oz 108/69 108/69 Negative -?-?-?-?-?-?-?-?-?--?-?-?- Negative 130 37 2 -?-?-?-?-?-?-?-?-?-?-?-?- 70 -3 KW- Reacti ve NST. +FM good glucose control. no vb/lof/ctx KW- Reactive NST. +FM good g lucose control. no vb/lof/ctx. GBS done. labor precautions. would like IOL at 40 weeks. if not IAL before KW- Reactive NST. Growth tod ay. +FM good glucose control. no vb/lof/ctx. GBS done. labor precautions. would like IOL at 40 weeks. if not IAL before 10/22/22 -?-?-?-?-?-?-?-?-?-?-?-?- 37w 1d 184 lb 4 oz 109/75 Nega tive -?-?-?-?-?-?-?-?-?-?-?-?- Negative 140 -?-?-?-?-?-?-?-?-?-?-?-?- MH-NST only reac tive 10/25/22 -?-?-?-?-?-?-?-?-?-?-?-?- 37w 4d 186 lb 2 oz 102/69 Nega tive -?-?-?-?-?-?-?-?-?-?-?-?- Negative 130 38 -?-?-?-?-?-?-?-?-?-?-?-?- -3 JV- unab le to reach external os on exam today. nst reactive. on metformin. plan for IOL at 39 weeks. () 10/29/22 -?-?-?-?-?-?-?-?-?-?-?-?- 38w 1d 185 lb 8 oz 118/75 Nega tive -?-?-?-?-?-?-?-?-?-?-?-?- Negative 140 -?-?-?-?-?-?-?-?-?-?-?-?- -NST only reac tive. 11/01/22 -?-?-?-?-?-?-?-?-?-?-?-?- 38w 4d 185 lb 5 oz 114/72 Nega tive -?-?-?-?-?-?-?-?-?-?-?-?- Negative 140 -?-?-?-?-?-?-?-?-?-?-?-?- for JV- NST r eactive. No complaints today. plan for vaginal exam next visit 11/05/22 -?-?-?-?-?-?-?-?-?-?-?-?- 39w 1d 185 lb 8 oz 104/71 Nega tive -?-?-?-?-?-?-?-?-?-?-?-?- Negative 135 -?-?-?-?-?-?-?-?-?-?-?-?- MH-NST only: cesia dinero. IOL set for 11/07. ROS Constitutional Constitutional: Denies change in weight, fatigue, fever(s), headache(s), poor appetite or weakness Eyes Eyes: Denies blurry vision, change in vision, seeing flashes or spots in vision ENT HEENT: Denies dizziness, headache(s), loss taste/smell or sore throat Cardiovascular Cardiovascular: Denies chest pain, dizziness, dyspnea, irregular heart rhythm, leg edema, palpitations, rapid heart rate or vomiting Respiratory/Chest Respiratory/Chest: Denies chest tightness, cough, dyspnea or breast pain Gastrointestinal Gastrointestinal: Denies abdominal pain, anorexia, constipation, cramping, diarrhea, hemorrhoids, vomiting or weight changes Genitourinary Genitourinary: Denies dysuria, flank pain, genital lesions, genital pain, urinary frequency or urinary urgency Musculoskeletal Musculoskeletal: Denies back pain, difficulty walking, joint pain, limited range of motion, muscle cramps or numbness Integumentary Integumentary: Denies lesions or unusual bruising Neurologic Neurologic: Denies abnormal movements, abnormal speech, dizziness, numbness, seizure-like activity or syncope Psychiatric Psychiatric: Denies anxiety, behavioral changes, change in appetite, change in libido, cognitive impairment, confusion, depression, difficulty concentrating, hallucinations or suicidal thoughts Endocrine Endocrinology: Denies excessive sweating, polydipsia or polyuria Hematologic/Lymphatic Hematologic/Lymphatic: Denies easy bleeding, easy bruising or lymphadenopathy Allergic/Immunologic Allergic/Immunologic: Denies itchy eyes, lip swelling, seasonal rhinorrhea, rhinitis, throat swelling, tongue swelling, eczemia, wheezing or asthma Vital Signs Vital Signs Vital Signs: Weight Weight: 185 lb 13.683 oz Body Mass Index (BMI) 34.0 Physical Exam Const alert, oriented x3, no apparent distress and healthy appearing General Appearance: cooperative; Negative for anxious HEENT normocephalic Face and Sinus: normal facial exam Eyes EOMs intact bilaterally and no scleral icterus General Eye: normal appearance of both eyes Neck full ROM and supple Lymph Lymphatic: no lymphadenopathy noted Chest Chest: abnormal inspection of the chest Resp normal respiratory effort Effort and Inspection: able to speak in complete sentences Cardio regular rate GI soft to palpation and non-tender Inspection: gravid Palpation: soft; Negative for tender external exam normal Narrative: cx is 4/80/-2, bulging membranes Amniotic Fluid: ROM+plus Back/Spine no CVA tenderness Extremity normal to inspection, full ROM and no clubbing, cyanosis or edema General Extremity: Negative for calf tenderness or edema Skin Lesions: no lesions Rashes: no rashes Psych mental status grossly normal Labs Labs Labs: Blood Type A POSITIVE Antibody Screen NEGATIVE Hct 36.5 % (37-47) L Hgb 12.1 g/dL (12.0-15.0) Obstetrics US Syphilis Total Ab Non-reactive Rubella IgG Antibody Reactive (Nonreactive) Hep Bs Antigen Non-Reactive (Nonreactive) Chlamydia DNA (RAMON) Negative (Negative) Neisseria gonorrhoeae DNA (RAMON) Negative (Negative) HIV 1&2 Antibody Non-Reactive (Nonreactive) Glucose 1 Hr 50 gm 175 mg/dL (70-140) H Rhogam given: No Assessment & Plan (1) Pre-existing diabetes mellitus during : COMMENT: pt failed gct and gtt prior to 20 weeks. diagnosed with pre- existing diabetes. Dr Dong-started metformin/NSTs at 32 and growth US 36wk (10/21:29%) (2) due to : COMMENT: difficulty nursing in the past, plan third trimester consult with [facility]; note sent to schedule consult (3) Obesity affecting : COMMENT: 1 TM GCT, encouraged healthy weight gain. (4) Supervision of normal : COMMENT: PRR SUGAR 11/18/22 boy Shmuel PC: Jim Luna Spouse: Rashard (5) : QUALIFIERS: Weeks of gestation: 38 weeks Qualified Code(s): Z3A.38 - 38 weeks gestation of COMMENT: GBS neg, anatomy nl,completed, declines carrier and genetic testing PLAN: Plan Patient presents IOL, plan management for with pitocin/AROM. Pain management: none yet. GBS negative. Management of any complications: GDM- nurse to report to me the glucose level when collected. I have reviewed the [facility] and made any clinically relevant updates.
[2022-11-07 08:37] LABS: Bedside Glucose 87 mg/dL (74-106)
[2022-11-07 08:44] LABS: Syphilis Antibodies Non-reactive
[2022-11-07 09:41] LABS: Bedside Glucose 77 mg/dL (74-106)
[2022-11-07 12:46] LABS: Bedside Glucose 68 mg/dL (74-106)
[2022-11-07] MEDS: fentaNYL 100 MCG/2 ML Ampul IV (13:49)
[2022-11-07] MEDS: Lidocaine 1% (20 ml mdv) 20 ML Vial INFILT (14:48)
[2022-11-07] MEDS: Oxytocin 15 Units/NS 250ml 15 UNITS/250 ML IV.SOLN 83 UNITS IV (15:15)
[2022-11-07 16:06] LABS: Bedside Glucose 82 mg/dL (74-106)
[2022-11-07 16:06] LABS: Bedside Glucose 101 mg/dL (74-106)
--- NOTE | 2022-11-07 16:24 | EX.PCM.OBRPT ---
Assessment & Plan (1) Pre-existing diabetes mellitus during : COMMENT: pt failed gct and gtt prior to 20 weeks. diagnosed with pre-existing diabetes. Dr Dong-started metformin/NSTs at 32 and growth US 36wk (10/21:29%) (2) due to : COMMENT: difficulty nursing in the past, plan third trimester consult with [facility]; note sent to schedule consult (3) Obesity affecting : COMMENT: 1 TM GCT, encouraged healthy weight gain. (4) Supervision of normal : COMMENT: PRR SUGAR 11/18/22 boy Shmuel PC: Jim Luna Spouse: Rashard (5) : QUALIFIERS: Weeks of gestation: 38 weeks Qualified Code(s): Z3A.38 - 38 weeks gestation of COMMENT: GBS neg, anatomy nl,completed, declines carrier and genetic testing Maternal Data Information SUGAR Calculator Estimated Delivery Date Method Current WG Current Estimate 11/11/22 LMP (Certain) 39w 3d Other Estimates 11/18/22 Ultrasound #1 38w 3d Final SUGAR Source: LMP Gestational age: 39 weeks 3 days Vaginal Delivery Maternal Presentation Maternal Presentation: Medically Indicated Induction Type of Induction: Pitocin and Amniotomy Operative Information Date of Procedure: 11/07/22 Pre-Operative Diagnosis: @ 39 weeks, pre-existing diabetes on Metformin Post-Operative Diagnosis: @ 39 weeks, pre-existing diabetes on Metformin Type of Anesthesia: None Estimated Blood Loss: 200cc Findings Description of Procedure: Patient began pushing and delivered the head in the REG presentation. The head was delivered atraumatically and a loose nuchal cord ?1 was identified and easily reduced over the 's head. The anterior and posterior shoulders delivered without complication followed by the rest of the and the infant was placed on the maternal abdomen. Delayed cord clamping was employed for approximately 60 seconds. Cord was clamped and cut and gentle traction was applied to the cord and the placenta delivered spontaneously immediately following it was noted to be intact with three-vessel cord. The perineum and vagina were inspected and noted to have a 1st degree perineal laceration, repaired with a 3-0 vicryl sutrue. EBL was 200cc. Patient and infant tolerated delivery well. Presentation: Vertex Amniotic Membrane Rupture Type: Artificial Amniotic Fluid Description: Clear Placental Delivery Description: Spontaneous Placenta Disposition: [facility] Cord Vessel Description: 3 Vessels Cord Entanglement: Around neck x 1, loose Infant A Gender: Male (1 minute): 9 (5 minute): 9 Delayed Cord Clamping: Yes Post Vaginal Delivery Medications Given After Delivery: IV Pitocin Episiotomy Description: None Laceration: 1st degree Complication Complications: None Multi Select Codes Urinary/Genital Urinary/Genital CPT Codes: 31365 Vaginal Delivery [facility]
--- NOTE | 2022-11-07 16:33 | DCINST_ITS ---
Discharge Instructions Diet Discharge Diet: No restrictions Activity Discharge Activity: Return to Normal Activity, May Not Drive (while taking narcotic pain medications.) and May Shower May resume sexual activity in: 4-6 weeks Dressing / Incision Call your doctor if your incision/area has: Continuous Slow Oozing, Sudden Increased Bleeding, Increased Pain/ Swelling, Increased Redness and Foul Smelling Discharge Follow Up Care Please Follow Up With: Radha Mera, DO When: Call [phone] to make an appointment with your doctor in 6 weeks. If you had elevated blood pressure or 4th degree laceration, you will need to be seen in 2 weeks. Test Results: Test results from this visit will be discussed in further detail at your follow- up appointment, if applicable. Discharge Plan Admission Admit Date/Time: 11/07/22 06:55 Attending Provider: Radha Mera Primary Care Provider: Diego Mcintosh Discharge Orders/Prescriptions Prescriptions: No Action vit,[id number] 1 TABLET tablet 1 tab PO DAILY metformin 500 mg tablet 1,000 mg PO BID Referrals / Follow Up: Diego Mcintosh MD [Primary Care Provider] -
[2022-11-08] VITALS (8 sets, daily range): BP systolic 103–111; BP diastolic 62–72; PULSE 71–85; RESP 14–18; TEMP 36.2–36.8; O2SAT 97–98
[2022-11-08 05:36] LABS: Bedside Glucose 78 mg/dL (74-106)
--- NOTE | 2022-11-08 08:06 | PN.OBGYN_ITS ---
Subjective Subjective Patient doing well without complaints. Tolerating PO. Ambulating and voiding without difficulty. Feeding well. Denies chest pain, shortness of breath, calf pain/swelling, fevers, chills, lightheadedness. Objective Data Objective Data Vital Signs: Vital Signs Temp Pulse Resp BP Pulse Ox O2 Del Method 98.2 F 80 14 103/62 98 Room Air 11/08/22 04:35 11/08/22 04:35 11/08/22 04:35 11/08/22 04:35 11/07/22 19:54 11/08/22 04:35 Oxygen Delivery Method Room Air Weight: 185 lb 13.683 oz Body Mass Index (BMI) 34.0 Intake & Output: Intake and Output for Last 24 Hours 11/06/22 11/07/22 11/08/22 23:59 23:59 23:59 Intake Total 917.88 / 917.88 Output Total 500 / 500 Balance 417.88 / 417.88 Lab / Micro Data Result Diagrams: 11/07/22 07:55 Labs: Laboratory Results - last 24 hr 11/07/22 07:55: WBC 8.2, RBC 4.01 L, Hgb 12.1, Hct 36.5 L, MCV 91.0, MCH 30.2, MCHC 33.2, RDW Std Deviation 53.8 H, RDW Coeff of Ene 16.4 H, Plt Count 203, MPV 11.0, Immature Gran % (Auto) 1.600 H, Neut % (Auto) 77.4 H, Lymph % (Auto) 13.2 L, Brule % (Auto) 6.6, Eos % (Auto) 0.7, Baso % (Auto) 0.5, Absolute Neuts (auto) 6.3, Absolute Lymphs (auto) 1.08, Nucleated RBC % 0 11/07/22 07:55: Blood Type A POSITIVE, Antibody Screen NEGATIVE 11/07/22 07:55: Syphilis Total Ab Non-reactive 11/07/22 08:15: POC Glucose 87 11/07/22 09:18: POC Glucose 77 11/07/22 12:15: POC Glucose 68 L 11/07/22 14:09: POC Glucose 82 11/07/22 15:30: POC Glucose 101 11/08/22 05:14: POC Glucose 78 Physical Exam Const alert and oriented x3 HEENT normocephalic Eyes PERRL Neck full ROM Resp normal respiratory effort GI soft to palpation GI Narrative: FF below U Assessment & Plan (1) Spontaneous vaginal delivery: COMMENT: 11/07/22 Boy Shmuel PUGA PLAN: Plan s/p PPD # 1 1. routine post delivery care 2. breast feeding- support given 3. rh positive 4. rubella immune 5. glucose stable 6. home today
== END 2022-11-08 16:50 | disposition home or self-care (01) | DRG 807 ==
PROVIDERS: Admitting Provider Obstetrics & Gynecology; PCP Orthopaedic Surgery; Referring Provider Obstetrics & Gynecology; Visit Provider Obstetrics & Gynecology
DX: O24.12 Pre-existing type 2 diabetes mellitus, in childbirth (principal); Z37.0 Single live birth; O69.81X0 Labor and delivery complicated by cord around neck, without compression, not applicable or unspecified; O70.0 First degree perineal laceration during delivery; O99.214 Obesity complicating childbirth; Z3A.39 39 weeks gestation of pregnancy; Z79.84 Long term (current) use of oral hypoglycemic drugs; Z87.59 Personal history of other complications of pregnancy, childbirth and the puerperium
CPT/HCPCS: 59025; 59050; 82962; 85025; 86780; 86850; 86900; 86901; 99221; J7120; G0378

== ENCOUNTER → 2024-12-28 | Outpatient (CLI) | payer SELFPAY ==
--- NOTE | 2024-12-28 14:23 | US_ITS ---
PROCEDURE: HEAD/NECK SOFT TISSUE 12/28/2024 REASON FOR EXAM: Firm masslike structure over cervical spine TECHNIQUE: HEAD/NECK SOFT TISSUE COMPARISON: None US/Head/Neck Soft Tissue IMPRESSION: Within the posterior neck at the area of palpable lump, there is a 1.8 x 2.5 x 0.8 cm fluid collection with debris. Reading Location: [id number]
--- OUTSIDE RECORDS SUMMARY | 2024-12-28 23:59 | XMS RPT_ITS | CCD ---
Author Organization [facility] Care Team Providers Care Senior Technical Support Analyst Name Role Phone Dr. Kevin Muñoz Primary Care Provider Dr. Kevin Muñoz Referring Provider [phone] Dr. Carmen Salguero Attending Provider Beckie Avila Attending Provider Unavailable Dr. Kevin Muñoz Primary Care Provider Dr. Kevin Muñoz Referring Provider [phone] Dr. Carmen Salguero Attending Provider Beckie Avila Attending Provider Unavailable Clark PUBLICATIONS PRODUCTION SUPERVISOR, ARACELI-C Martha Attending Provider Dr. Radha Mera Attending Provider [phone] Dr. Donnell Dong Attending Provider [phone] RENETTA Hawkins Attending Provider Dr. Kevin Muñoz Primary Care Provider Dr. Kevin Muñoz Referring Provider [phone] Dr. Kevin Muñoz Primary Care Provider Dr. Kevin Muñoz Referring Provider Dr. Donnell Dong Attending Provider [phone] RENETTA Hawkins Attending Provider Clark PUBLICATIONS PRODUCTION SUPERVISOR, PUBLICATIONS PRODUCTION SUPERVISOR-C Martha Attending Provider RENETTA Lopez Attending Provider Dr. Carmen Salguero Attending Provider Dr. Kevin Muñoz Primary Care Provider Dr. Kevin Muñoz Referring Provider Dr. Radha Mera Attending Provider [phone] Dr. Radha Mera Admit Provider Dr. Radha Mera Referring Provider [phone] Dr. Radha Mera Other Provider PRISCILA VINCENT-PANDA Cramer Unavailable PODIATRY, GENERAL Unavailable Unavailable Roverto BECKER MD Unavailable [phone] Myriam Good RN Unavailable Unavailable DI KINGSTON, MICKI Ramon Unavailable Liudmila OLIVEIRA, Laura Unavailable Unavailable CASSANDRA KINGSTON, ELBA Tse Unavailable Naoim MUÑOZ MD Unavailable LIVIA WEEKS Unavailable Unavailable Unavailable Unavailable OFE CHILD Admitting KEVIN Lynn MD Consulting Unavailable FOE CHILD Attending OFE Bartholomew Primary [facility] Sharif jackson PROVIDER, UNKNOWN Consulting Unavailable PROVIDER, UNKNOWN Consulting Unavailable PROVIDER, UNKNOWN Consulting Unavailable PANDA FRANCOIS PUBLICATIONS PRODUCTION SUPERVISOR Attending Unavailab PANDA Plata NP Primary Care Unavailab PANDA Plata NP Admitting Unavailab rodolfo VINCENT-PANDA Cramer Unavailable Unav ailable Laura Stark Unavailable Unavailable EDITH OTT Unavailable GARY LAI Unavailable BIRD GARCIA RN Unavailable Unavailable Kevin Muñoz Primary Care Unavailable Edith Murphy Referring Unavailable Edith Murphy Attending Unavailable Allergies Allergy Classification Reported Allergen(s) Allergy Type Date of Onset Reaction(s) Facility (9 sources) natural latex rubber Allergy to substance 06-10-2019 [facility] (12 sources) Latex 03-31-2013 [facility], [facility].; [facility]. (12 sources) Gloves in a Bottle *DERMATOLOGICALS * [facility] [facility] - [facility]. (1 source) natural latex rubber Drug allergy (disorder) 12-19-2022 [facility] Repository Medications Current Medications Medication Drug Class(es) Dates Sig (Normalized) Sig (Original) metFORMIN hydrochloride 500 mg oral tablet (3 sources) Biguanide Start: 08-31-2022 End: 11-07-2022 take 1000 mg by mouth twice daily Metformin Active 1000 MG PO TWICE A DAY November 07, 2022 7:28am Vit,Gevr71-Bgxc-Weuna (10 sources) Start: 06-10-2019 take 1 tablet by mouth once daily Vit,Lrfx24-Crvj-C olic Active 1 TABLET PO DAILY June 10, 2019 9:07am Start: 06-10-2019 take 1 tablet by elan th once daily Vit,Zlnp05-Capk-Upmlw Active 1 TABLET PO DAILY June 10, 2019 12:00am Start: 06-10-2019 take 1 tablet by elan th once daily Vit,Hket17-Txvn-Fwkix Active 1 TABLET PO DAILY June 10, 2019 1:00am Completed/Discontinued Medications Medication Drug Class(es) Dates Sig (Normalized) Sig (Original) acetaminophen 325 mg / butalbital 50 mg / caffeine 40 mg oral tablet (8 sources) Barbiturate, Central Nervous System Stimulant, Methylxanthine Start: 04-29-2024 End: 05-29-2024 butalbital-acetam inophen-caffeine 50 mg-325 mg-40 mg tablet ; 1 (one) tablet at the onset of headache. May repeat in 2 hours if ANDERS not resolved. for 30 days Quantity: 30 {Tablet} Refills: 0 Ordered: 06-Aug-2024 MD Roverto BECKER Start: 29-Apr-2024 End: 29-May-2024 Status: Inactive amoxicillin 500 mg oral capsule (12 sources) Penicillin-class Antibacterial Start: 12-08-2021 End: 12-18-2021 take 1 tablet by mouth three times daily Amoxicillin 500 MG Oral Capsule ; 1 (one) Tablet three times daily for 10 days Quantity: 30 {Capsule} Refills: 0 Ordered: 11-May-2022 MD MICKI SEVILLA Start: 08-Dec-2021 End: 18-Dec-2021 Status: Inactive Comments: medication to be dispensed in office Comment on above: medication to be dis pensed in office amoxicillin 875 mg / clavulanate 125 mg oral tablet (20 sources) Penicillin-class Antibacterial Start: 07-10-2021 End: 07-20-2021 take 1 tablet by mouth twice daily Amoxicillin-Pot Clavulanate 875-125 MG Oral Tablet ; 1 (one) Tablet two times daily for 10 days Quantity: 20 {Tablet} Refills: 0 Ordered: 07-Dec-2021 NATHAN FRANCOIS Start: 10-Jul-2021 End: 20-Jul-2021 Status: Inactive Comments: Dispense in office Start: 08-03-2011 End: 08-13-2011 take 1 tablet by mouth twice daily AUGMENTIN, 500-125MG (Oral Tablet) ; 1 (one) Tablet two times daily for 10 days Quantity: 20 {Tablet} Refills: 0 Ordered: 06-Aug-2012 MD ELBA TRUJILLO Start: 03-Aug-2011 End: 13-Aug-2011 Status: Inactive Comment on above: Dispense in office azithromycin 250 mg oral tablet (12 sources) Macrolide Antimicrobial Start: 09-04-19 15 End: 03-19-20 17 Azithromycin 250 MG Oral Tablet ; 2 x 1 then 1 x 4 Tablet daily for 0 days Quantity: 6 {Tablet} Refills: 0 Ordered: 19-Mar-2017 SARWAT GARCIA Start: 03-Sep-2014 End: 19-Mar-2017 Status: Inactive Comments: take two tablets day one and then one tablet daily for 4 days Comment on above: take two tablets day one and then one tablet daily for 4 days naproxen 500 mg oral tablet (12 sources) Nonsteroidal Anti-inflammatory Drug Start: 04-16-20 17 End: 07-10-19 take 1 tablet by mouth twice daily as needed Naproxen 500 MG Oral Tablet ; 1 (one) Tablet two times daily, as needed for 0 days Quantity: 30 {Tablet} Refills: 0 Ordered: 10-Jul-2021 Start: 16-Apr-2017 End: 10-Jul-2021 Status: Inactive Comments: Medication taken as needed. Comment on above: Medication taken as needed. predniSONE 10 mg oral tablet (20 sources) Start: 10-30-20 13 End: 05-11-20 13 PREDNISONE (LISANDRA), 10MG (Oral Tablet) ; 1 Tablet D 1-3=6tab daily D 4-6=4tab D 7-9=2tab [id number] for 12 days Quantity: 40 {Tablet} Refills: 0 Ordered: 29-Apr-2013 MD Roverto BECKER Start: 29-Apr-2013 End: 11-May-2013 Status: Inactive Comments: Days 1,2,3 = 6 tabs daily; Days 4,5,6 = 4 tabs daily; Days 7,8,9 = 2 tabs daily; Days 10,11,12 = 1 tab daily; Take with food. May take each days medication at one time Start: 10-14-2012 End: 10-22-2012 take 1 tablet by mouth once daily PREDNISONE, 5MG (Oral Tablet) ; 1 (one) Tablet daily for 8 days Quantity: 21 {Tablet} Refills: 0 Ordered: 04-Nov-2012 Start: 14-Oct-2012 End: 22-Oct-2012 Status: Inactive Comments: Dispense in Office Comment on above: Days 1,2,3 = 6 tabs daily; Days 4,5,6 = 4 tabs daily; Days 7,8,9 = 2 tabs daily; Days 10,11,12 = 1 tab daily; Take with food. May take each days medication at one time Dispense in Office triamcinolone acetonide 0.005 mg/mg topical ointment (12 sources) Corticosteroid Start: 03-19-2017 End: 07-10-2021 Triamcinolone Acetonide 0.5 % External Ointment ; 1 (one) Ointment Ointment two times daily for 7 days Quantity: 30 {Gram} Refills: 2 Ordered: 10-Jul-2021 Start: 19-Mar-2017 End: 10-Jul-2021 Status: Inactive Comments: apply to affected area Comment on above: apply to affected ar ea Problems Active Problems Problem Classification Problem Date Documented Da te Episodic/Chronic Allergic reactions (20 sources) Contact dermatitis; Translations: [Unspecified contact dermatitis, unspecified cause] 09-03-2014 Episodic Conditions associated with dizziness or vertigo (20 sources) Dizziness; Translations: [Dizziness and giddiness] 08-01-2023 Episodic Diabetes mellitus without complication (20 sources) Abnormal glucose level; Translations: [Other abnormal glucose] Episodic Diabetes or abnormal glucose tolerance complicating ; childbirth; or the puerperium (20 sources) Pre-existing diabetes mellitus in ; Translations: [Unspecified pre-existing diabetes mellitus in , unspecified trimester] Chronic Diabetes or abnormal glucose tolerance complicating ; childbirth; or the puerperium (3 sources) Gestational diabetes mellitus in , unspecified control; Translations: [Abnormal glucose tolerance of mother, unspecified as to episode of care or not applicable] Episodic Genitourinary symptoms and ill-defined conditions (12 sources) Dysuria 08-03-2011 Episodic Headache; including migraine (16 sources) Tension-type headache; Translations: [Tension-type headache, unspecified, not intractable] 04-29-2024 Chronic Hemorrhage during ; abruptio placenta; placenta previa (20 sources) Threatened miscarriage; Translations: [Threatened ] Episodic Immunizations and screening for infectious disease (12 sources) Requires vaccination; Translations: [Encounter for immunization] 08-06-2012 Episodic Inflammatory diseases of female pelvic organs (12 sources) Endometritis; Translations: [Inflammatory disease of uterus, unspecified] 08-03-2011 Episodic Menstrual disorders (3 sources) Menstrual spotting; Translations: [Excessive and frequent menstruation with regular cycle] Chronic Other complications of (8 sources) Maternal obesity complicating , childbirth and the puerperium, antepartum; Translations: [Obesity complicating , unspecified trimester] 04-12-2022 Chronic Other complications of (20 sources) Obesity complicating , unspecified trimester; Translations: [Obesity complicating , childbirth, or the puerperium, unspecified as to episode of care or not applicable] Chronic Other complications of (8 sources) History of gestational diabetes mellitus; Translations: [Supervision of with other poor reproductive or obstetric history, unspecified trimester] 05-28-2022 Episodic Other complications of (5 sources) Supervision of with other poor reproductive or obstetric history, unspecified trimester; Translations: [ with other poor obstetric history] Episodic Other connective tissue disease (18 sources) Pain in right foot; Translations: [Pain in right foot] 04-16-2017 Episodic Other connective tissue disease (12 sources) Mass of soft tissue; Translations: [Other specified soft tissue disorders] 12-16-2024 Episodic Other connective tissue disease (1 source) Other specified soft tissue disorders; Translations: [Other specified soft tissue disorders] Onset: 12-25-2024 Episodic Other endocrine disorders (18 sources) Hypoglycemia; Translations: [Hypoglycemia, unspecified] 08-01-2023 Chronic Other and delivery including normal (20 sources) Normal ; Translations: [Encounter for supervision of normal , unspecified, unspecified trimester] Episodic Other screening for suspected conditions (not mental disorders or infectious disease) (14 sources) Other specified abnormal findings of blood chemistry; Translations: [Other abnormal blood chemistry] 04-30-2024 Episodic Other skin disorders (18 sources) Eruption; Translations: [Rash and other nonspecific skin eruption] 03-19-2017 Episodic Other upper respiratory infections (20 sources) Acute pharyngitis; Translations: [Acute pharyngitis, unspecified] 12-08-2021 Episodic Otitis media and related conditions (18 sources) Otitis media of right ear; Translations: [Otitis media, unspecified, right ear] 07-10-2021 Episodic Residual codes; unclassified (12 sources) Unspecified prophylactic or treatment measure 08-06-2012 Episodic Unclassified (12 sources) A0 09-03-2014 Unclassified (12 sources) Unspecified Diagnosis 09-03-2014 Urinary tract infections (1 source) Cystitis, unspecified without hematuria; Translations: [Cystitis, unspecified without hematuria] Onset: 08-02-2023 Episodic Past or Other Problems Problem Classification Problem Date Documented Da te Episodic/Chronic Headache; including migraine (20 sources) Headache; including migraine 12-08-2021 Unclassified (12 sources) Dizziness - The dizziness has been occurring for 3 months (This has happened three times in last 3 months. Yesterday was before lunch, one time was before dinner and the other was after dinner. She gets lightheaded, dizzy, and nauseuos. She checked blood sugar after dinner it was 70.). The dizziness is characterized as lightheadedness (yesterday) and spinning of the environment (Yesterday.). There has been no associated anxiety, depression or diabetes mellitus (Got checked with last for type 2 over a year ago did not have it had an A1C done a year ago and it look good.). Note for Dizziness: Yesterday after lunch and drank some juice and M [employer] and hour hour later took blood sugar and it was 130. 08-01-2023 Unclassified (12 sources) Dizziness - The dizziness has been occurring for 5 days. The dizziness is characterized as feeling in the head. The symptoms have been associated with loss of balance and nausea, while the symptoms have not been associated with fever or headache. Note for Dizziness: Also c/o of chills. 07-10-2021 Unclassified (12 sources) Foot pain - The onset of the foot pain has been gradual and has been occurring for 6 months. The foot pain is mild to moderate. The foot pain is characterized as a burning sensation and dull aching. The foot pain is described as being located in the hindfoot. The foot pain is aggravated by physical activity. The pain has been relieved by medication. Previous diagnostic tests have included bone scan ([facility] Previous evaluations have been completed by a chiropractor. 04-16-2017 Unclassified (12 sources) Rash - The rash has been occurring for 1 month. The course has been constant. The rash is characterized as red. There has been associated itching, while there has been no chills, fatigue or fever. 03-19-2017 Unclassified (12 sources) Ear pain - The ear pain has been occurring in a persistent pattern for 1 week. The course has been constant. It is the left ear. The pain affects the external ear. There has been associated nasal discharge/stuffy nose (clear) and runny nose (and cough), while there has been no fever or headache. Note for Ear pain: cough 09-03-2014 Unclassified (12 sources) Rash - The rash has been occurring for 4 days. The patient was possibly exposed while other: latex. There has been associated itching. Note for Rash: Here for exam. 04-29-2013 Unclassified (12 sources) Rash - The rash is characterized as red. The rash was first seen on the upper extremity. There has been associated itching. Note for Rash: Rash started on right arm several weeks ago, spread to left arm on Saturday. Here for exam. 08-06-2012 Unclassified (12 sources) Pain on urination - The onset of the pain has been gradual and has been occurring in a persistent pattern for 9 days. The course has been constant. The symptoms have been associated with (delivered 07/12/11) and vaginal discharge (foul bloody, brown), while the symptoms have not been associated with chills, fever or frequency. Note for Pain on urination: at [place] with Kya 08-03-2011 Unclassified (10 sources) !Patient notification of lab results - NATHAN Grijalva. The test(s) that you had done were/was an A1C (three month sugar average). The results of your testing were normal . You should call our office if you have any questions. Please follow up as scheduled. Note for !Patient notification of lab results : Your a1c was low at 4.7. This shows that your average blood sugar is 88. This is actually on the low side. Please make sure you are eating regularly- protein and fresh fruits and vegetables to help balance this. Thanks! 08-02-2023 Unclassified (7 sources) !Patient notification of lab results - Dr. Becker. The test(s) that you had done were/was blood work (One of your liver function tests was slightly elevated. This can result from any number of causes such as fatty deposits in the liver or irritation due to a medication. I don't feel this test was elevated to the point of being a critical concern, but I would recommend that we repeat the test in 3 months to verify that it is stable.Your glucose was elevated. Please call to schedule a fasting glucose test in the office in 3 months.). You should call our office if you have any questions. 04-30-2024 Unclassified (6 sources) Soft Tissue Mass - Symptoms include single mass. Note for Soft tissue mass: Present for years, posterior neck. No change in size but pt feeling discomfort now. 12-16-2024 Results Test Name Value Interpretation Reference Range Facil ity Laboratory - Chemistry and C hemistry - challengeon 04-29-2024 Albumin [Mass/Vol] 4.7 g/dL Normal 4.0 - 5.0 g/dL [facility], [facility].; [facility], [facility]. ALP [Catalytic activity/Vol] 87 U/L Normal 44 - 121 [iU]/L [facility]; [facility], [facility]. ALT [Catalytic activity/Vol] 48 U/L Abnormal 0 - 32 [iU]/L [facility], [facility]. AST [Catalytic activity/Vol] 37 U/L Normal 0 - 40 [iU]/L [facility].; [facility], [facility] Bilirubin [Mass/Vol] 0.6 mg/dL Normal 0.0 - 1.2 mg/dL [facility].; [facility], [facility] Calcium [Mass/Vol] 9.9 mg/dL Normal 8.7 - 10. 2 mg/dL [facility].; [facility], [facility] Chloride [Moles/Vol] 103 mmol/L Normal 96 - 106 mmol/L [facility]; [facility], [facility] CO2 [Moles/Vol] 19 mmol/L Abnormal 20 - 29 mmol/L [facility].; [facility], [facility] Creatinine [Mass/Vol] 0.66 mg/dL Normal 0.57 - 1.00 mg/dL [facility].; [facility], [facility]. GFR/1.73 sq M.predicted among non-blacks MDRD (S/P/Bld) [Vol rate/Area] 121 mL/min/{1.73_m2} Normal [facility]; [facility], [facility] Globulin (S) [Mass/Vol] 2.5 g/dL Normal 1.5 - 4.5 g/dL [facility].; [facility], [facility]. Glucose [Mass/Vol] 117 mg/dL Abnormal 70 - 99 mg/dL [facility]; [facility], [facility] Potassium [Moles/Vol] 4.1 mmol/L Normal 3.5 - 5.2 mmol/L [facility].; [facility], [facility] Protein [Mass/Vol] 7.2 g/dL Normal 6.0 - 8.5 g/dL [facility].; [facility], [facility] Sodium [Moles/Vol] 139 mmol/L Normal 134 - 144 mmol/L [facility]; [facility], [facility] TSH Qn 1.140 {uIU/mL} Normal 0.450 - 4.500 {uIU/mL} [facility]; [facility], [facility] Urea nitrogen [Mass/Vol] 10 mg/dL Normal 6 - 20 mg/dL [facility]; [facility], [facility] Urea nitrogen/Creatinine [Mass ratio] 15 mg/mg Normal 9 - 23 [facility]; [facility], [facility] Laboratory - Hematology and Cell countson 04-29-2024 Basophils (Bld) [#/Vol] 0.1 10*3/uL Normal 0.0 - 0.2 {x10E3/uL} [facility]; [facility], [facility] Basophils/100 WBC (Bld) 1 % Normal [facility]; [facility], [facility] Eosinophils (Bld) [#/Vol] 0.1 10*3/uL Normal 0.0 - 0.4 {x10E3/uL} [facility].; [facility] Eosinophils/100 WBC (Bld) 2 % Normal [facility]; [facility], [facility] Erythrocyte distribution width (RBC) [Ratio] 12.9 % Normal 11.7 - 15.4 % [facility]; [facility], [facility] HbA1c (Bld) [Mass fraction] 5.0 % Normal 4.8 - 5.6 % [facility]; [facility], [facility] Hematocrit (Bld) [Volume fraction] 42.0 % Normal 34.0 - 46.6 % [facility]; [facility], [facility] Hemoglobin (Bld) [Mass/Vol] 13.8 g/dL Normal 11.1 - 15.9 g/dL [facility].; [facility] Immature granulocytes (Bld) [#/Vol] 0.0 10*3/uL Normal 0.0 - 0.1 {x10E3/uL} [facility], [facility].; [facility], [facility]. Immature granulocytes/100 WBC (Bld) 1 % Normal [facility], [facility].; [facility], [facility]. Lymphocytes (Bld) [#/Vol] 1.5 10*3/uL Normal 0.7 - 3.1 {x10E3/uL} [facility] Lymphocytes/100 WBC (Bld) 25 % Normal [facility], [facility].; [facility], [facility]. MCH (RBC) [Entitic mass] 30.9 pg Normal 26.6 - 33.0 pg [facility], [facility].; [facility], [facility]. MCHC (RBC) [Mass/Vol] 32.9 g/dL Normal 31.5 - 35.7 g/dL [facility], [facility].; [facility] MCV (RBC) [Entitic vol] 94 fL Normal 79 - 97 fL [facility], [facility].; [facility], [facility]. Monocytes (Bld) [#/Vol] 0.2 10*3/uL Normal 0.1 - 0.9 {x10E3/uL} [facility] Monocytes/100 WBC (Bld) 4 % Normal [facility], [facility].; [facility], [facility]. Neutrophils (Bld) [#/Vol] 4.1 10*3/uL Normal 1.4 - 7.0 {x10E3/uL} [facility], [facility].; [facility] Neutrophils/100 WBC (Bld) 67 % Normal [facility], [facility].; [facility] Platelets (Bld) [#/Vol] 274 10*3/uL Normal 150 - 450 {x10E3/uL} [facility] RBC (Bld) [#/Vol] 4.46 10*6/uL Normal 3.77 - 5.2 8 {x10E6/uL} [facility].; [facility], [facility]. WBC (Bld) [#/Vol] 6.1 10*3/uL Normal 3.4 - 10.8 {x10E3/uL} [facility] [facility], [facility]. HEMOGLOBIN A1C (POM)on 08-01 Glucose [Mass/Vol] 88.2 mg/dL High 0.0 - 0.0 [facility] Comment on above: Result Comment: Do HEMOGLOBIN A1C REFERENCE RANGESBLDo Suggested Diagnosis HbA1c(%) HbA1C (mmol/mol Diabetic >/=6.5 >/=48 Prediabetes 5.7 - 6.4 39 - 47 Normal <5.7 <39 Performed By: #### [id number] #### [place] [address] HbA1c (Bld) [Mass fraction] 4.7 % Normal 0.0 - 6.5 % [facility].; [facility]. Comment on above: Performed By: #### [id number] #### [place] [address] Laboratory - Chemistry and C hemistry - challengeon 08-01-2023 Average glucose Estimated from glycated hemoglobin (Bld) [Mass/Vol] 88.2 mg/dL Abnormal 0.0 - 0.0 mg/dL [facility].; [facility], [facility]. Glucose Glucometer (BldC) [M ass/Vol]Ordered By: Dr. Villalta on 11-08-2022 Glucose [Mass/Vol] 78 mg/dL 74-106 [facility] Comment on above: MANAGEMENT OF PATIEN T CARE PER NURSING PROTOCOL Laboratory - Chemistry and C hemistry - challengeon 11-08-2022 Magnesium [Mass/Vol] 78 mg/dL Normal 74 - 106 mg/dL [facility].; [facility]3[employer]. Work Phone: Absolute lymphocyte countOrd ered By: Dr. Villalta on 11-07-2022 Lymphocytes Auto (Unsp spec) [#/Vol] 1.08 10*3/uL 0.83-4.51 [facility] Automated blood hematocrit ( percentage)Ordered By: Dr. Villalta on 11-07-2022 Hematocrit (Bld) [Volume fraction] 36.5 % Abnormal 37 - 47 [facility] Basophil percentageOrdered B y: Dr. Villalta on 11-07-2022 Basophils/100 WBC (Bld) 0.5 % Normal 0 - 1 [facility] Eosinophils/100 WBC (Bld) 0.7 % Normal 0 - 5 [facility] Neutrophils (Bld) [#/Vol] 6.3 10*3/uL 2.0-7.7 [facility] Neutrophils/100 WBC (Bld) 77.4 % Abnormal 47 - 70 [facility] WBC (Bld) [#/Vol] 8.2 10*3/uL Normal 4.4 - 11.0 K/mm3 [facility] Blood erythrocytes count (nu mber/volume)Ordered By: Dr. Villalta on 11-07-2022 RBC (Bld) [#/Vol] 4.01 10*6/uL Abnormal 4.2 - 5.4 {M/mm3} [facility] Blood hemoglobin measurement (mass/volume)Ordered By: Dr. Villalta on 11-07-2022 Hemoglobin (Bld) [Mass/Vol] 12.1 g/dL Normal 12.0 - 15.0 g/dL [facility] Blood lymphocytes/100 leukoc ytesOrdered By: Dr. Villalta on 11-07-2022 Lymphocytes/100 WBC (Bld) 13.2 % Abnormal 19 - 41 [facility] Blood monocytes/100 leukocyt esOrdered By: Dr. Villalta on 11-07-2022 Monocytes/100 WBC (Bld) 6.6 % Normal 0 - 10 [facility] Blood platelet mean volumeOr dered By: Dr. Villalta on 11-07-2022 Platelet mean volume (Bld) [Entitic vol] 11.0 fL Normal 6.2 - 12.0 fL [facility] Determination of erythrocyte mean corpuscular volume (MCV)Ordered By: Dr. Villalta on 11-07-2022 MCV (RBC) [Entitic vol] 91.0 fL Normal 81 - 99 fL [facility] Laboratory - Blood bankon ABO and Rh group Nom (Bld) Blood group A Rh(D) positive Normal [facility] CenterVeriTeQ Corporation; [facility] Work Phone: Laboratory - Chemistry and C hemistry - challengeon 11-07-2022 Magnesium [Mass/Vol] 68 mg/dL Abnormal 74 - 106 mg/dL [facility]; [facility] Hospital[facility]. Work Phone: Magnesium [Mass/Vol] 82 mg/dL Normal 74 - 106 mg/dL [facility]; [facility]3[employer] Work Phone: Magnesium [Mass/Vol] 101 mg/dL Normal 74 - 106 mg/dL [facility]; [facility]3[employer] Work Phone: Magnesium [Mass/Vol] 87 mg/dL Normal 74 - 106 mg/dL [facility] CenterKl[facility]; [facility]3[employer]. Work Phone: Magnesium [Mass/Vol] 77 mg/dL Normal 74 - 106 mg/dL [facility] CenterKl[facility]; [facility]3[employer]. Work Phone: Laboratory - Hematology and Cell countson 11-07-2022 Nucleated RBC (Bld) [#/Vol] 0 10*3/uL Normal 0 - 5 [facility] CenterKl[facility]; [facility]3[employer]. Work Phone: Laboratory - Hematology and Cell countsOrdered By: Dr. Villalta on 11-07-2022 Erythrocyte distribution width (RBC) [Entitic vol] 53.8 fL 35.1-43.9 [facility] Erythrocyte distribution width (RBC) [Ratio] 16.4 % Abnormal 11.6 - 14.6 [facility] Immature granulocytes/100 WBC (Bld) 1.600 % 0.0-0.9 [facility] Comment on above: IG% - Immature Granu locytes (promyelocytes, myelocytes and metamyelocytes) > 1% indicates that a LEFT SHIFT is Present. MCH (RBC) [Entitic mass] 30.2 pg Normal 27.0 - 32.0 pg [facility] Nucleated RBC/100 WBC (Bld) [Ratio] 0 % 0-5 [facility] MCHC [Mass/volume] by Automa david countOrdered By: Dr. Villalta on 11-07-2022 MCHC (RBC) [Mass/Vol] 33.2 g/dL Normal 32 - 36 g/dL [facility] No Panel Informationon 11-07 Ab SCREEN GEL Negative Normal [facility] [employer] [facility] Chronically IllVeriTeQ Corporation; [employer] [facility] [employer] [facility]3[employer] Work Phone: Absolute Lymph 1.08 {X10_3/uL} Normal 0.83 - 4.5 1 {X10_3/uL} [facility] [employer] [facility] Chronically IllVeriTeQ Corporation; [employer] [facility] [employer] [facility] Chron[facility] IllVeriTeQ Corporation Work Phone: Absolute Neut 6.3 {X10_3/uL} Normal 2.0 - 7.7 {X10_3/uL} [facility] Chron[facility] IllVeriTeQ Corporation; [employer] [facility] C[employer] [facility] Chron[facility] IllVeriTeQ Corporation Work Phone: IG% 1.600 Abnormal 0.0 - 0.9 [facility]Te[facility] Chronically IllVeriTeQ Corporation; [employer] Work Phone: RDW SD 53.8 fL Abnormal 35.1 - 43.[address] [facility] HospitalZimbra [facility] Chronically IllVeriTeQ Corporation; [employer] Work Phone: Syphilis Abs Non-Reactive Normal [facility] HospitalZim[facility] Chronically IllVeriTeQ Corporation; e-contratos [facility] HospitalTeabox [facility] Chron[facility] IllVeriTeQ Corporation Work Phone: Platelets bldOrdered By: Dr. Villalta on 11-07-2022 Platelets (Bld) [#/Vol] 203 10*3/uL Normal 150 - 450 K/mm3 [facility] Serum Treponema species anti body detectionOrdered By: Dr. Villalta on 11-07-2022 Treponema sp Ab Ql (S) Non-Reactive [facility] Laboratory - Chemistry and C hemistry - challengeon 11-05-2022 Glucose Ql (U) Negative [facility] Laboratory - Urinalysison Protein Ql (U) Negative [facility] Laboratory - Chemistry and C hemistry - challengeon 11-01-2022 Glucose Ql (U) Negative [facility] Laboratory - Urinalysison Protein Ql (U) Negative [facility] Laboratory - Chemistry and C hemistry - challengeon 10-29-2022 Glucose Ql (U) Negative [facility] Laboratory - Urinalysison Protein Ql (U) Negative [facility] Laboratory - Chemistry and C hemistry - challengeon 10-25-2022 Glucose Ql (U) Negative [facility] Laboratory - Urinalysison Protein Ql (U) Negative [facility] Laboratory - Chemistry and C hemistry - challengeon 10-22-2022 Glucose Ql (U) Negative [facility] Laboratory - Urinalysison Protein Ql (U) Negative [facility] No Panel InformationOrdered By: Brii Lopez on 10-22-2022 Group B Streptococcus Culture Group B Beta Streptococcus is not isolated. [facility] Laboratory - Chemistry and C hemistry - challengeon 10-19-2022 Glucose Ql (U) Negative [facility] Laboratory - Urinalysison Protein Ql (U) Negative [facility] No Panel Informationon 10-19 ROMEO See Note [facility]3[employer].; [facility]3[employer]. Work Phone: Laboratory - Chemistry and C hemistry - challengeon 10-16-2022 Glucose Ql (U) Negative [facility] Laboratory - Urinalysison Protein Ql (U) Negative [facility] Laboratory - Chemistry and C hemistry - challengeon 10-11-2022 Glucose Ql (U) Negative [facility] Laboratory - Urinalysison Protein Ql (U) Negative [facility] Laboratory - Chemistry and C hemistry - challengeon 10-08-2022 Glucose Ql (U) Negative [facility] Laboratory - Urinalysison Protein Ql (U) Negative [facility] Laboratory - Chemistry and C hemistry - challengeon 10-05-2022 Glucose Ql (U) Negative [facility] Laboratory - Urinalysison Protein Ql (U) Negative [facility] Laboratory - Chemistry and C hemistry - challengeon 10-01-2022 Glucose Ql (U) Negative [facility] Laboratory - Urinalysison Protein Ql (U) Negative [facility] Laboratory - Chemistry and C hemistry - challengeon 09-12-2022 Glucose Ql (U) Negative [facility] Laboratory - Urinalysison Protein Ql (U) Negative [facility] Laboratory - Chemistry and C hemistry - challengeon 08-24-2022 Glucose Ql (U) Negative [facility] Laboratory - Urinalysison Protein Ql (U) Negative [facility] Absolute lymphocyte countOrd ered By: Mariana Hawkins on 08-08-2022 Lymphocytes Auto (Unsp spec) [#/Vol] 1.16 10*3/uL 0.83-4.51 [facility] Automated blood hematocrit ( percentage)Ordered By: Mariana Hawkins on 08-08-2022 Hematocrit (Bld) [Volume fraction] 33.6 % Abnormal 37 - 47 [facility] Basophil percentageOrdered B y: Mariana Hawkins on 08-08-2022 Basophils/100 WBC (Bld) 0.7 % Normal 0 - 1 [facility] Eosinophils/100 WBC (Bld) 0.8 % Normal 0 - 5 [facility] Neutrophils (Bld) [#/Vol] 6.6 10*3/uL 2.0-7.7 [facility] Neutrophils/100 WBC (Bld) 76.1 % Abnormal 47 - 70 [facility] WBC (Bld) [#/Vol] 8.7 10*3/uL Normal 4.4 - 11.0 K/mm3 [facility] Blood erythrocytes count (nu mber/volume)Ordered By: Mariana Hawkins on 08-08-2022 RBC (Bld) [#/Vol] 3.72 10*6/uL Abnormal 4.2 - 5.4 {M/mm3} [facility] Blood hemoglobin measurement (mass/volume)Ordered By: Mariana Hawkins on 08-08-2022 Hemoglobin (Bld) [Mass/Vol] 11.0 g/dL Abnormal 12.0 - 15.0 g/dL [facility] Blood lymphocytes/100 leukoc ytesOrdered By: Mariana Hawkins on 08-08-2022 Lymphocytes/100 WBC (Bld) 13.3 % Abnormal 19 - 41 [facility] Blood monocytes/100 leukocyt esOrdered By: Mariana Hawkins on 08-08-2022 Monocytes/100 WBC (Bld) 5.0 % Normal 0 - 10 [facility] Blood platelet mean volumeOr dered By: Mariana Hawkins on 08-08-2022 Platelet mean volume (Bld) [Entitic vol] 10.1 fL Normal 6.2 - 12.0 fL [facility] Determination of erythrocyte mean corpuscular volume (MCV)Ordered By: Mariana Hawkins on 08-08-2022 MCV (RBC) [Entitic vol] 90.3 fL Normal 81 - 99 fL [facility] HIV 1 and HIV-2 antibody ass ay with HIV-1 p24 antigen detectionOrdered By: Mariana Hawkins on 08-08-2022 HIV 1+2 Ab+HIV1 p24 Ag IA Ql Non-Reactive Nonreactive [facility] Laboratory - Chemistry and C hemistry - challengeon 08-08-2022 Glucose Ql (U) Negative [facility] Laboratory - Hematology and Cell countson 08-08-2022 Nucleated RBC (Bld) [#/Vol] 0 10*3/uL Normal 0 - 5 [facility] CenterVeriTeQ Corporation; [facility] HospitalGlobal Industry [facility]. Work Phone: Laboratory - Hematology and Cell countsOrdered By: Mariana Hawkins on 08-08-2022 Erythrocyte distribution width (RBC) [Entitic vol] 50.0 fL 35.1-43.9 [facility] Erythrocyte distribution width (RBC) [Ratio] 15.5 % Abnormal 11.6 - 14.6 [facility] Immature granulocytes/100 WBC (Bld) 4.100 % 0.0-0.9 [facility] Comment on above: IG% - Immature Granu locytes (promyelocytes, myelocytes and metamyelocytes) > 1% indicates that a LEFT SHIFT is Present. MCH (RBC) [Entitic mass] 29.6 pg Normal 27.0 - 32.0 pg [facility] Nucleated RBC/100 WBC (Bld) [Ratio] 0 % 0-5 [facility] Laboratory - Urinalysison Protein Ql (U) Negative [facility] MCHC [Mass/volume] by Automa david countOrdered By: Mariana Hawkins on 08-08-2022 MCHC (RBC) [Mass/Vol] 32.7 g/dL Normal 32 - 36 g/dL [facility] No Panel Informationon 08-08 Absolute Lymph 1.16 {X10_3/uL} Normal 0.83 - 4.5 1 {X10_3/uL} [facility] [employer] [facility] Chron[facility] IllVeriTeQ Corporation; [facility]3[employer] Work Phone: Absolute Neut 6.6 {X10_3/uL} Normal 2.0 - 7.7 {X10_3/uL} [facility] [employer] [facility] Chron[facility] IllVeriTeQ Corporation; [facility]3[employer] Work Phone: HIV Non-Reactive Normal [facility] CenterVeriTe[facility] Corporation; [facility]3[employer] Work Phone: IG% 4.100 Abnormal 0.0 - 0.9 [facility] CenterVeriTeQ Corporation; [employer] [facility] [employer] [facility]3[employer] Work Phone: RDW SD 50.0 fL Abnormal 35.1 - 43.9 fL [facility] C[employer] [facility] Chron[facility] IllVeriTeQ Corporation; [employer] [facility] [employer] [facility] Work Phone: Syphilis Abs Non-Reactive Normal [facility] [employer] [facility] Chron[facility] IllVeriTeQ Corporation; [facility] [employer] [facility]3[employer] Work Phone: Platelets bldOrdered By: Lida Hawkins on 08-08-2022 Platelets (Bld) [#/Vol] 214 10*3/uL Normal 150 - 450 K/mm3 [facility] Serum Treponema species anti body detectionOrdered By: Mariana Hawkins on 08-08-2022 Treponema sp Ab Ql (S) Non-Reactive [facility] Laboratory - Hematology and Cell countson 06-29-2022 HbA1c (Bld) [Mass fraction] 3.9 % [facility] Laboratory - Chemistry and C hemistry - challengeon 06-12-2022 Glucose Ql (U) Negative [facility] Laboratory - Urinalysison Protein Ql (U) Negative [facility] Laboratory - Chemistry and C hemistry - challengeon 05-28-2022 Glucose Ql (U) Negative [facility] Laboratory - Urinalysison Protein Ql (U) Negative [facility] No Panel Informationon 05-11 3HR GTT- GEST. Abnormal [employer] [facility] Chronically IllVeriTeQ Corporation; [employer] [facility] Chron[facility] IllVeriTeQ Corporation Work Phone: Quantitative serum or plasma 3 hour gestational glucose tolerance panelOrdered By: Martha Rodas on 05-11-2022 Glucose tolerance 3 hours gestational panel See comment [facility] Comment on above: FASTING 92 Col: 05/01 07/22 0658GLUCOSE TOLERANCE TEST FOR Reference Interval GESTATIONAL DIABETES Fasting <105 mg/dL 1 hour <190 mg/dl 2 hour <165 mg/dl 3 hour <145 mg/dl 1 HR GLU 211 H Col: 05/11/22 0802 2 HR GLU 188 H Col: 05/11/22 0900 3 HR GLU 132 Col: 05/11/22 1000 Culture, urineOrdered By: Dr Tiffanie Salguero on 05-10-2022 Bacteria identified Cx Nom (U) Mixed Gram Pos & Gram Neg Org [facility] Absolute lymphocyte countOrd ered By: Dr. Salguero on 05-09-2022 Lymphocytes Auto (Unsp spec) [#/Vol] 1.48 10*3/uL 0.83-4.51 [facility] Automated blood hematocrit ( percentage)Ordered By: Dr. Salguero on 05-09-2022 Hematocrit (Bld) [Volume fraction] 35.9 % Abnormal 37 - 47 [facility] Basophil percentageOrdered B y: Dr. Salguero on 05-09-2022 Basophils/100 WBC (Bld) 0.6 % Normal 0 - 1 [facility] Eosinophils/100 WBC (Bld) 1.3 % Normal 0 - 5 [facility] Neutrophils (Bld) [#/Vol] 5.9 10*3/uL 2.0-7.7 [facility] Neutrophils/100 WBC (Bld) 73.7 % Abnormal 47 - 70 [facility] WBC (Bld) [#/Vol] 8.0 10*3/uL Normal 4.4 - 11.0 K/mm3 [facility] Blood erythrocytes count (nu mber/volume)Ordered By: Dr. Salguero on 05-09-2022 RBC (Bld) [#/Vol] 4.10 10*6/uL Abnormal 4.2 - 5.4 {M/mm3} [facility] Blood hemoglobin measurement (mass/volume)Ordered By: Dr. Salguero on 05-09-2022 Hemoglobin (Bld) [Mass/Vol] 12.6 g/dL Normal 12.0 - 15.0 g/dL [facility] Blood lymphocytes/100 leukoc ytesOrdered By: Dr. Salguero on 05-09-2022 Lymphocytes/100 WBC (Bld) 18.6 % Abnormal 19 - 41 [facility] Blood monocytes/100 leukocyt esOrdered By: Dr. Salguero on 05-09-2022 Monocytes/100 WBC (Bld) 4.7 % Normal 0 - 10 [facility] Blood platelet mean volumeOr dered By: Dr. Salguero on 05-09-2022 Platelet mean volume (Bld) [Entitic vol] 10.2 fL Normal 6.2 - 12.0 fL [facility] Determination of erythrocyte mean corpuscular volume (MCV)Ordered By: Dr. Salguero on 05-09-2022 MCV (RBC) [Entitic vol] 87.6 fL Normal 81 - 99 fL [facility] Gestational diabetes screen 1-hour screen with 50g oral glucose loadOrdered By: Dr. Salguero on 05-09-2022 Glucose 1 Hr post 50 g glucose PO [Mass/Vol] 175 mg/dL 70-140 [facility] HIV 1 and HIV-2 antibody ass ay with HIV-1 p24 antigen detectionOrdered By: Dr. Salguero on 05-09-2022 HIV 1+2 Ab+HIV1 p24 Ag IA Ql Non-Reactive Nonreactive [facility] Laboratory - Blood bankon ABO and Rh group Nom (Bld) Blood group A Rh(D) positive Normal [facility]; [facility] HospitalGlobal [facility] Work Phone: Laboratory - Chemistry and C hemistry - challengeon 05-09-2022 Magnesium [Mass/Vol] 175 mg/dL Abnormal 70 - 140 mg/dL [facility]; [facility] Work Phone: Glucose Ql (U) Negative [facility] Laboratory - Hematology and Cell countson 05-09-2022 Nucleated RBC (Bld) [#/Vol] 0 10*3/uL Normal 0 - 5 [facility]; [facility] Work Phone: Laboratory - Hematology and Cell countsOrdered By: Dr. Salguero on 05-09-2022 Erythrocyte distribution width (RBC) [Entitic vol] 43.2 fL 35.1-43.9 [facility] Erythrocyte distribution width (RBC) [Ratio] 13.7 % Normal 11.6 - 14.6 [facility] Immature granulocytes/100 WBC (Bld) 1.100 % 0.0-0.9 [facility] Comment on above: IG% - Immature Granu locytes (promyelocytes, myelocytes and metamyelocytes) > 1% indicates that a LEFT SHIFT is Present. MCH (RBC) [Entitic mass] 30.7 pg Normal 27.0 - 32.0 pg [facility] Nucleated RBC/100 WBC (Bld) [Ratio] 0 % 0-5 [facility] Laboratory - Urinalysison Protein Ql (U) Negative [facility] MCHC [Mass/volume] by Automa david countOrdered By: Dr. Salguero on 05-09-2022 MCHC (RBC) [Mass/Vol] 35.1 g/dL Normal 32 - 36 g/dL [facility] No Panel Informationon 05-09 Ab SCREEN GEL Negative Normal [facility]; [facility] Work Phone: Absolute Lymph 1.48 {X10_3/uL} Normal 0.83 - 4.5 1 {X10_3/uL} [facility].; [facility], [facility]. Work Phone: Absolute Neut 5.9 {X10_3/uL} Normal 2.0 - 7.7 {X10_3/uL} [facility]; [facility], [facility]. Work Phone: HEP B Surf Ag Non-Reactive Normal [facility]; [facility] Work Phone: Hepatitis C Ab Non-Reactive Normal [facility].; [facility]. Work Phone: HIV Non-Reactive Normal [facility].; [facility], [facility]. Work Phone: IG% 1.100 Abnormal 0.0 - 0.9 [facility]; [facility], [facility]. Work Phone: RDW SD 43.2 fL Normal 35.1 - 43.9 fL [facility]; [facility] Work Phone: Rubella IgG Reactive Normal [facility]; [facility] Work Phone: Syphilis Abs Non-Reactive Normal [facility]; [facility] Work Phone: URC See Note Normal [facility].; [facility] Work Phone: No Panel InformationOrdered By: Dr. Salguero on 05-09-2022 Hepatitis B Surface Antigen Non-Reactive Nonreactive [facility] Hepatitis C Antibody Non-Reactive Nonreactive [facility] Comment on above: Non Reactive: < 0.8 Equivocal: >/= 0.8 to < 1.0 Reactive: >/= 1.0The CDC recommends that a reactive/equivocal HCV antibody result be followed up by the HCV Nucleic Acid Amplificationtest (750789) Rubella IgG Antibody Reactive Nonreactive [facility] Comment on above: Antibody Results Int erpretation of Immune Status Non Reactive Presumed Non-Immune Equivocal Equivocal Reactive Presumed Immune Platelets bldOrdered By: Dr. Salguero on 05-09-2022 Platelets (Bld) [#/Vol] 222 10*3/uL Normal 150 - 450 K/mm3 [facility] Serum Treponema species anti body detectionOrdered By: Dr. Salguero on 05-09-2022 Treponema sp Ab Ql (S) Non-Reactive [facility] Cervical or vagninal specime n microscopic examination by cytology stain (reported ason 04-12-2022 Cytology report Cyto stain Doc (Cvx/Vag) Comment . [facility] Work Phone: Comment on above: The Pap smear is a s creening test designed to aid in thedetection of premalignant and malignant conditions of theuterine cervix. It is not a diagnostic procedure andshould not be used as the sole means of detecting cervicalcancer. Both false-positive and false-negative reports dooccur. Chlamydia trachomatis rRNA d etection by probe and target amplification methodon 04-12-2022 C. trachomatis rRNA RAMON+probe Ql (Unsp spec) Negative Negative [facility] Work Phone: Laboratory - Cytologyon 03-31 Director Of Retail Analytics Cyto stain Nom (Cvx/Vag) [ID] Comment . [facility] Work Phone: Comment on above: Jona Paz totechnologist (ASCP) Laboratory - Microbiology an d Antimicrobial susceptibilityon 04-12-2022 N. gonorrhoeae DNA RAMON+probe Ql (Unsp spec) Negative Negative [facility] Work Phone: Comment on above: Performed at: =[address] [id number] Director: Naz Talamantes MD, Phone: [phone] Laboratory - Miscellaneous t estson 04-12-2022 Service comment (Unsp spec) [Interp] Comment . [facility] Work Phone: Comment on above: This liquid based Th inPrep(R) pap test was screened withthe use of an image guided system. Service comment (Unsp spec) [Interp] . . [facility] Work Phone: No Panel Informationon 04-12 Human Papillomavirus Screen Comment . [facility] Work Phone: Comment on above: The HPV DNA reflex c delia were not met with this specimenresult therefore, no HPV testing was performed.Performed at: [address] [id number] Director: Naz Talamantes MD, Phone: [phone] Pap Smear QC Review Comment . [facility] Work Phone: Comment on above: Camila Rosas Cytot echnologist (ASCP) Pathology report final diagnosis Narrative Comment . [facility] Work Phone: Comment on above: NEGATIVE FOR INTRAEP ITHELIAL LESION OR MALIGNANCY.THIS SPECIMEN WAS RESCREENED PART OF OUR [employer] TECHNICIAN PROGRAM. [employer] Comment [employer].; [employer], [employer]. Work Phone: CHLAMY,NUC ACID Negative [employer].; [employer] [facility] [employer] Work Phone: COMM . [employer].; [employer] Work Phone: COMMENT Comment [employer].; [employer] Work Phone: DIAG Comment [employer] [facility] [employer].; [employer]-contratos [facility] [employer] Work Phone: GC BY NUC ACID Negative [facility] [employer].; [facility] [employer] [facility]. Work Phone: HPV RFLX Comment [facility] Hospital[facility] Industry [facility].; [facility]3[employer]. Work Phone: PAPSMR Comment [facility]3[employer].; [facility]3[employer]. Work Phone: PERFORM Comment [facility]3[employer].; [facility]3[employer]. Work Phone: QC REV Comment [facility]3[employer].; [facility] [employer] [facility]. Work Phone: No Panel Informationon 03-23 HCG QUANT. 5936 m[iU]/mL Abnormal 1 - 3 m[iU]/mL [facility] and [employer]; [facility] [employer] [facility]. Work Phone: Serum or plasma choriogonado tropin detectionon 03-23-2022 HCG ( test) Ql 5936 mIU/mL <4 [facility] Work Phone: Comment on above: hCG levels with Gest ational AgeGestational Age hCG mIU/mL (IU/L)0.2 - 1 week 5 - 501-2 weeks 50 - 5002-3 weeks 100 - 71777-1 weeks 500 - 662965-8 weeks 1000 - 589486-1 weeks 26248 - 100,0006-8 weeks 78123 - 200,0002-3 months 99528 - 100,000 No Panel Informationon 03-21 HCG QUANT. 4354 m[iU]/mL Abnormal 1 - 3 m[iU]/mL [facility].; [facility] [employer] [facility]. Work Phone: Serum or plasma choriogonado tropin detectionon 03-21-2022 HCG ( test) Ql 4354 mIU/mL <4 [facility] Work Phone: Comment on above: hCG levels with Gest ational AgeGestational Age hCG mIU/mL (IU/L)0.2 - 1 week 5 - 501-2 weeks 50 - 5002-3 weeks 100 - 77885-9 weeks 500 - 839381-7 weeks 1000 - 576153-0 weeks 80146 - 100,0006-8 weeks 83539 - 200,0002-3 months 69230 - 100,000 Laboratory - Microbiology an d Antimicrobial susceptibilityon 12-08-2021 Heterophile Ab LA Ql (S) Negative Normal [facility]; [employer] [facility] Laboratory - Chemistry and C hemistry - challengeon 12-06-2021 TSH Qn 1.54 m[IU]/L Normal 0.35 - 3.74 {uIU/ml} [facility] Center[facility]; [facility] Work Phone: Laboratory - Hematology and Cell countson 12-06-2021 Basophils (Bld) [#/Vol] 0.10 {x10EE3/UL} Normal 0.00 - 0.10 {x10EE3/UL} [facility] [employer] [facility] Chron[facility] IllVeriTeQ Corporation; [facility] Work Phone: Basophils/100 WBC (Bld) 0.7 % Normal 0.0 - 2.0 % [facility] Center[facility]; [facility] Work Phone: Eosinophils (Bld) [#/Vol] 0.10 {x10EE3/UL} Normal 0.00 - 0.50 {x10EE3/UL} [facility] [employer] [facility] Chron[facility] IllVeriTeQ Corporation; [facility] [employer] [facility]. Work Phone: Eosinophils/100 WBC (Bld) 1.5 % Normal 0.0 - 7.0 % [facility] [employer] [facility] IllVeriTeQ Corporation; [facility] [employer] [facility] Chronically IllVeriTeQ Corporation Work Phone: Erythrocyte distribution width (RBC) [Ratio] 13.9 % Normal 12.0 - 15.6 % [facility] [employer] [facility] IllVeriTeQ Corporation; [facility] [employer] [facility] Chronically IllVeriTeQ Corporation Work Phone: Hematocrit (Bld) [Volume fraction] 40.8 % Normal 34.0 - 46.0 % [facility]; [facility] Work Phone: Hemoglobin (Bld) [Mass/Vol] 14.0 g/dL Normal 12.0 - 16.0 g/dL [facility]; [facility] Work Phone: Lymphocytes (Bld) [#/Vol] 1.70 {x10EE3/UL} Normal 0.80 - 2.80 {x10EE3/UL} [facility]; [facility] Work Phone: Lymphocytes/100 WBC (Bld) 20.6 % Normal 20.0 - 45.0 % [facility]; [facility], [facility] Work Phone: MCH (RBC) [Entitic mass] 31 pg Normal 27 - 33 pg [facility]; [facility] Work Phone: MCHC (RBC) [Mass/Vol] 34 {X10_3} Normal 32 - 36 {X10_3 } [facility]; [facility], [facility] Work Phone: MCV (RBC) [Entitic vol] 91 fL Normal 80 - 99 fL [facility]; [facility] Work Phone: Monocytes (Bld) [#/Vol] 0.40 {x10EE3/UL} Normal 0.20 - 1.00 {x10EE3/UL} [facility]; [facility], [facility] Work Phone: Monocytes/100 WBC (Bld) 4.6 % Normal 0.0 - 10.0 % [facility]; [facility], [facility] Work Phone: Morphology Ga (Bld) [Interp] N/A Normal [facility]; [facility] HospitalGlobal [facility] Work Phone: Neutrophils (Bld) [#/Vol] 6.20 {x10EE3/UL} Normal 1.50 - 7.10 {x10EE3/UL} [facility]; [facility] HospitalGlobal [facility] Work Phone: Neutrophils/100 WBC (Bld) 72.6 % Normal 46.0 - 76.0 % [facility]; [facility] Work Phone: Platelet mean volume (Bld) [Entitic vol] 8.4 fL Normal 6.6 - 10.5 fL [facility]; [facility] HospitalGlobal [facility] Work Phone: Platelets (Bld) [#/Vol] 317 {x10EE3/UL} Normal 150 - 450 {x10EE3/UL} [facility]; [facility] Hospital[facility] Work Phone: RBC (Bld) [#/Vol] 4.48 {x_10EE6/UL} Normal 4.10 - 5.30 {x_10EE6/UL} [facility]; [facility] HospitalGlobal [facility] Work Phone: WBC (Bld) [#/Vol] 8.5 {x_10EE3/UL} Normal 4.5 - 10.8 {x_10EE3/UL} [facility]; [facility] HospitalGlobal [facility] Work Phone: Laboratory - Serology - non- microon 12-06-2021 Nuclear Ab IF (S) [Titer] Negative Normal [facility]; [facility] HospitalGlobal [facility] Work Phone: No Panel Informationon 12-06 CBC + DIFF Normal [facility]; [facility] Hospital[facility] Work Phone: MANUAL DIFF N/A Normal [facility] [employer] [facility] Chron[facility] IllVer[employer]Q Corporation; [employer] [facility] [employer] [facility]. Work Phone: No Panel Informationon 10-30 HCG QUANT. < 1 Normal 1 - 3 m[iU]/mL [facility] [employer] [facility] Chron[facility] IllVer[employer] Corporation; [employer] [facility] [employer] [facility]. Work Phone: Serum or plasma choriogonado tropin detectionon 10-30-2021 HCG ( test) Ql < 1 mIU/mL <4 [facility] Work Phone: Comment on above: hCG levels with Gest ational AgeGestational Age hCG mIU/mL (IU/L)0.2 - 1 week 5 - 501-2 weeks 50 - 5002-3 weeks 100 - 99100-1 weeks 500 - 801306-2 weeks 1000 - 782039-4 weeks 15070 - 100,0006-8 weeks 04034 - 200,0002-3 months 03475 - 100,000 Laboratory - Chemistry and C hemistry - challengeon 06-11-2019 Magnesium [Mass/Vol] 83 mg/dL Normal 70 - 110 mg/dL [facility] [employer] [facility] Chron[facility] IllVeriTeQ Corporation; [employer] [facility] [employer]. Work Phone: Laboratory - Blood bankon ABO and Rh group Nom (Bld) Blood group A Rh(D) positive Normal [facility] [employer] [facility] Chron[facility] IllVeriTeQ Corporation; [employer] [facility] [employer]. Work Phone: Laboratory - Chemistry and C hemistry - challengeon 06-10-2019 Magnesium [Mass/Vol] 93 mg/dL Normal 70 - 110 mg/dL [facility] [employer] [facility] Chron[facility] IllVer[employer] Corporation; [employer] [facility] [employer]. Work Phone: Magnesium [Mass/Vol] 91 mg/dL Normal 70 - 110 mg/dL [facility] [employer]; [employer] [facility] [employer]. Work Phone: Magnesium [Mass/Vol] 96 mg/dL Normal 70 - 110 mg/dL [facility] [employer]; [employer] [facility]Global [facility] Inc. Work Phone: Magnesium [Mass/Vol] 90 mg/dL Normal 70 - 110 mg/dL [facility]; [facility] HospitalGlobal [facility]. Work Phone: Magnesium [Mass/Vol] 98 mg/dL Normal 70 - 110 mg/dL [facility].; [facility] HospitalGlobal [facility]. Work Phone: Magnesium [Mass/Vol] 187 mg/dL Abnormal 70 - 110 mg/dL [facility]Global [facility].; [facility] HospitalGlobal [facility]. Work Phone: Laboratory - Hematology and Cell countson 06-10-2019 Basophils/100 WBC (Bld) 0.6 % Normal 0 - 1 % [facility]Global [facility]; [facility] HospitalGlobal [facility] Work Phone: Eosinophils/100 WBC (Bld) 0.8 % Normal 0 - 5 % [facility] CenterGlobal [facility]; [facility] HospitalGlobal [facility]. Work Phone: Erythrocyte distribution width (RBC) [Ratio] 15.9 % Abnormal 11.6 - 14.6 % [facility] CenterGlobal [facility]; [facility], [facility]. Work Phone: Hematocrit (Bld) [Volume fraction] 35.3 % Abnormal 37 - 47 % [facility] CenterGlobal [facility]; [facility], [facility]. Work Phone: Hemoglobin (Bld) [Mass/Vol] 11.9 g/dL Abnormal 12.0 - 15.0 g/dL [facility].; [facility], [facility] Work Phone: Lymphocytes/100 WBC (Bld) 13.0 % Abnormal 19 - 41 % [facility].; [facility], [facility] Work Phone: MCH (RBC) [Entitic mass] 30.7 pg Normal 27.0 - 32.0 pg [facility] CenterGlobal [facility]; [facility] HospitalGlobal [facility] Work Phone: MCHC (RBC) [Mass/Vol] 33.7 g/dL Normal 32 - 36 g/dL [facility]SmithvilleGlobal Industry [facility]; [facility] Work Phone: MCV (RBC) [Entitic vol] 91.2 fL Normal 81 - 99 fL [facility]; [facility] Work Phone: Monocytes/100 WBC (Bld) 8.1 % Normal 0 - 10 % [facility]; [facility] Work Phone: Neutrophils/100 WBC (Bld) 74.6 % Abnormal 47 - 70 % [facility]; [facility] HospitalGlobal [facility] Work Phone: Platelet mean volume (Bld) [Entitic vol] 10.7 fL Normal 6.2 - 12.0 fL [facility]Global [facility]; [facility] HospitalGlobal [facility] Work Phone: Platelets (Bld) [#/Vol] 184 10*3/uL Normal 150 - 450 K/mm3 [facility] CenterGlobal [facility]; [facility] HospitalGlobal [facility] Work Phone: RBC (Bld) [#/Vol] 3.87 10*6/uL Abnormal 4.2 - 5.4 {M/mm3} [facility]; [facility] HospitalGlobal [facility] Work Phone: WBC (Bld) [#/Vol] 8.7 10*3/uL Normal 4.4 - 11.0 K/mm3 [facility]Global [facility]; [facility] HospitalGlobal [facility] Work Phone: No Panel Informationon 06-10 Absolute Lymph 1.13 {X10_3/uL} Normal 0.83 - 4.5 1 {X10_3/uL} [facility].; [facility]. Work Phone: Absolute Neut 6.5 {X10_3/uL} Normal 2.0 - 7.7 {X10_3/uL} [facility].; [facility], [employer]. Work Phone: IM GRAN % 2.900 % Abnormal 0.0 - 0.9 % [facility]3[employer].; [facility]3[employer]. Work Phone: NRBC, FLAGGED 0 % Normal 0 - 5 % [facility] CenterVeriTeQ Corporation; [facility] HospitalGlobal Industry [facility]. Work Phone: RDW SD 53.0 fL Abnormal 35.1 - 43.9 fL [facility]3[employer].; [facility]3[employer]. Work Phone: Laboratory - Microbiology an d Antimicrobial susceptibilityon 05-20-2019 S. agalactiae Org specific cx Ql (Unsp spec) See Note Normal [facility]3[employer].; [facility]3[employer]. Work Phone: Laboratory - Chemistry and C hemistry - challengeon 03-25-2019 Magnesium [Mass/Vol] 96 mg/dL Normal [facility].; [facility]3[employer]. Work Phone: No Panel Informationon 03-25 GLU GTT- 1HR 237 mg/dL Abnormal [facility].; [facility]3[employer]. Work Phone: GLU GTT- 2HR 235 mg/dL Abnormal [facility]3[employer].; [facility]3[employer]. Work Phone: GLU GTT- 3HR 137 L Normal [facility]3[employer].; [facility]3[employer]. Work Phone: Laboratory - Chemistry and C hemistry - challengeon 08-03-2011 Bilirubin Ql (U) Negative Normal [facility].; [facility], Inc[facility] Ketones Ql (U) Negative Normal [facility] Center[facility].; [facility], [employer] pH (U) 5.0 [pH] Normal [facility].; [facility], Inc[facility] Specific gravity (U) [Rel density] 1.025 Normal [facility].; [facility], [facility]. Laboratory - Hematology and Cell countson 08-03-2011 Hemoglobin Ql (U) HEMOLYZED 2+ Abnormal [facility].; [facility], Inc[facility] Laboratory - Specimen inform ationon 08-03-2011 Appearance (U) CLEAR Normal [facility].; [facility], Inc[facility] Color (U) YELLOW [facility].; [facility], [facility] Laboratory - Urinalysison Glucose Test strip (U) [Mass/Vol] Negative Normal [facility]Global [facility].; [facility], Inc[facility] Leukocyte esterase Test strip Ql (U) 1+ Abnormal [facility].; [facility], Inc[facility] Nitrite Ql (U) Negative Normal [facility].; [facility], Inc[facility] Protein Ql (U) Negative Normal [facility].; [facility], Inc[facility] No Panel Informationon 08-03 UA - ODOR Negative Normal [facility].; [facility], Inc[facility] UA - UROBILIGEN 0.2 Normal [facility].; [facility], Inc[facility] Laboratory - Blood bankon ABO and Rh group Nom (Bld) Blood group A Rh(D) positive Normal [facility].; [facility], Inc[employer] Work Phone: Blood group antibody investigation (P/RBC) [Interp] POS, INCONCLUSIVE [facility] Hospital[facility].; [facility], Inc[employer] Work Phone: Blood group antibody screen Ql Positive Normal [facility] HospitalKl[facility]; [facility] HospitalGlobal [facility] Work Phone: Packed RBC units available (BPU) [#] See Note Normal [facility] CenterKl[facility]; [facility] HospitalGlobal [facility] Work Phone: Laboratory - Hematology and Cell countson 07-12-2011 Basophils/100 WBC (Bld) 0.4 % Normal 0.0 - 2.5 % [facility]; [facility] Work Phone: Eosinophils/100 WBC (Bld) 1.7 % Normal 0.0 - 6.0 % [facility]; [facility] HospitalGlobal [facility] Work Phone: Erythrocyte distribution width (RBC) [Ratio] 13.5 % Normal 11.5 - 15.5 % [facility]Global [facility]; [facility]Global [facility] Work Phone: Hematocrit (Bld) [Volume fraction] 33.3 % Abnormal 34.0 - 46.0 % [facility]; [facility] HospitalGlobal [facility] Work Phone: Hemoglobin (Bld) [Mass/Vol] 11.8 g/dL Abnormal 12.0 - 16.0 g/dL [facility]; [facility] HospitalGlobal [facility] Work Phone: Lymphocytes/100 WBC (Bld) 20.3 % Normal 20.0 - 40.0 % [facility]; [facility] HospitalGlobal [facility] Work Phone: MCH (RBC) [Entitic mass] 33.4 pg Abnormal 27.0 - 33.0 pg [facility]Global [facility]; [facility]Global [facility] Work Phone: MCHC (RBC) [Mass/Vol] 35.6 g/dL Normal 32.0 - 36.0 g/dL [facility]; [facility] Work Phone: MCV (RBC) [Entitic vol] 93.9 fL Normal 80.0 - 99.0 fL [facility]; [facility] Work Phone: Monocytes/100 WBC (Bld) 8.5 % Normal 2.0 - 13.0 % [facility]; [facility] Work Phone: Neutrophils (Bld) [#/Vol] 8.40 {10_3/mcL} Abnormal 1.90 - 7.90 {10_3/mcL} [facility]; [facility]Global [facility] Work Phone: Neutrophils/100 WBC (Bld) 69.1 % Normal 50.0 - 75.0 % [facility]; [facility] HospitalGlobal [facility] Work Phone: Platelet mean volume (Bld) [Entitic vol] 9.5 fL Normal 6.6 - 10.5 fL [facility]; [facility]. Work Phone: Platelets (Bld) [#/Vol] 231 {10_3/mcL} Normal 150 - 450 {10_3/mcL} [facility]; [facility] HospitalGlobal [facility]. Work Phone: RBC (Bld) [#/Vol] 3.54 {10_6/mcL} Abnormal 4.10 - 5.30 {10_6/mcL} [facility]; [facility] HospitalGlobal [facility]. Work Phone: WBC (Bld) [#/Vol] 12.16 {10_3/mcL} Abnormal 4.50 - 10.80 {10_3/mcL} [facility]; [facility] HospitalGlobal [facility] Work Phone: No Panel Informationon 07-12 AUTO CONTROL Negative Normal [facility]Te[facility]3[employer].; Milo [facility] [employer] [facility], [employer]. Work Phone: VANESSA A (JKA) ANTIGEN Positive Normal [facility] HospitalTeab[facility]3[employer].; [employer] [facility] [employer] [facility], Inc[employer] Work Phone: Culture, urine Bacteria identified Cx Nom (U) Mixed Gram Pos & Gram Neg Org [facility] Work Phone: Vital Signs Date Time Vital Sign Value Performing Clinician Facility 12-16-2024 11:16-0400 Body height 158.75 cm BIRD GARCIA RN [facility] [employer] [facility], [employer] [facility] [employer] [facility], [employer] 12-16-2024 11:16-0400 Body mass index (BMI) [Ratio] 33.66 kg/m2 BIRD GARCIA RN [facility] [employer] [facility], [employer] [facility] [employer] [facility], [employer] 12-16-2024 11:16-0400 Body surface area Derived from formula 1.87 m2 BIRD GARCIA RN [facility] [employer] [facility], [employer] [facility] [employer] [facility], [employer] 12-16-2024 11:16-0400 Body weight 84.82 kg BIRD GARCIA RN [facility] [employer] [facility], [employer] [facility] [employer] [facility], [employer] 12-16-2024 11:16-0400 Diastolic blood pressure 68 mm[Hg] BIRD GARCIA RN [facility] [employer] [facility], [employer] [facility] [employer] [facility], [employer]. Comment on above: Patient Position: Sitting; Cuff Location : Right Arm; Cuff Size: Large 12-16-2024 11:16-0400 Heart rate 77 /min BIRD GARCIA RN [facility] [employer] [facility], [employer] [facility] [employer] Comment on above: Pattern: Regular 12-16-2024 11:16-0400 Systolic blood pressure 101 mm[Hg] BIRD GARCIA RN [facility] [employer] [facility], [facility] [facility] [employer] Comment on above: Patient Position: Sitting; Cuff Location : Right Arm; Cuff Size: Large 04-29-2024 10:05-0400 Body weight 88 kg Kendra Kam LPN [facility], [facility].; [facility], [facility] 04-29-2024 10:05-0400 Diastolic blood pressure 75 mm[Hg] Kendra Kam LPN [facility], [facility].; [facility], [facility] Comment on above: Patient Position: Sitting; Cuff Location : Left Arm; Cuff Size: Standard 04-29-2024 10:05-0400 Heart rate 68 /min Kendra Kam LPN [facility], [facility].; [facility], [facility] Comment on above: Pattern: Regular 04-29-2024 10:05-0400 Systolic blood pressure 110 mm[Hg] Kendra Kam LPN [facility], [facility].; [facility], [facility] Comment on above: Patient Position: Sitting; Cuff Location : Left Arm; Cuff Size: Standard 08-01-2023 13:13-0500 Body height 158.75 cm Laura Nur [facility], Inc.; [facility], [facility] 08-01-2023 13:13-0500 Body mass index (BMI) [Ratio] 35.28 kg/m2 [facility], [facility].; [facility], [facility] 08-01-2023 13:13-0500 Body surface area Derived from formula 1.91 m2 Laura Nur [facility], Inc.; [facility], [facility] 08-01-2023 13:13-0500 Body temperature 98.1 [degF] Laura Nur [facility], Inc.; [facility] Comment on above: Method: Oral 08-01-2023 13:13-0500 Body weight 88.91 kg Laura Nur [facility], Inc.; [facility], [facility] 08-01-2023 13:13-0500 Diastolic blood pressure 66 mm[Hg] Laura Nur [facility], Inc.; [facility] [employer] [facility], Inc[employer] Comment on above: Patient Position: Sitting; Cuff Location : Left Arm; Cuff Size: Standard 08-01-2023 13:13-0500 Heart rate 81 /min Laura OLIVEIRA [facility], [employer].; [facility]. Comment on above: Pattern: Regular 08-01-2023 13:13-0500 Inhaled oxygen concentration 21 % Laura Nur [facility], [employer].; [facility] and ClinicsGlobal Industry [facility]. Comment on above: Room air 08-01-2023 13:13-0500 SaO2% (BldA) [Mass fraction] 98 % Laura Nur [facility], [employer].; [facility] and ClinicsGlobal Industry [facility]. 08-01-2023 13:13-0500 Systolic blood pressure 110 mm[Hg] Laura Nur [place] [facility].; [facility]3[employer]. Comment on above: Patient Position: Sitting; Cuff Location : Left Arm; Cuff Size: Standard 11-08-2022 14:53-0400 Body temperature 97.1 [degF] Dr. Kevin Muñoz Work Phone: [facility] 11-08-2022 14:53-0400 Diastolic blood pressure 64 mm[Hg] Dr. Kevin Muñoz Work Phone: [facility] 11-08-2022 14:53-0400 Heart rate 71 /min Dr. Kevin Muñoz Work Phone: [facility] 11-08-2022 14:53-0400 Respiratory rate 16 /min Dr. Kevin Muñoz Work Phone: [facility] 11-08-2022 14:53-0400 SaO2% (BldA) [Mass fraction] 98 % Dr. Kevin Muñoz Work Phone: [facility] 11-08-2022 14:53-0400 Systolic blood pressure 110 mm[Hg] Dr. Kevin Muñoz Work Phone: [facility] 11-07-2022 07:24-0400 Body height 157.[address] Kevin Muñoz Work Phone: [facility] 11-07-2022 07:24-0400 Body mass index (BMI) [Ratio] 34 kg/m2 Dr. Kevin Muñoz Work Phone: [facility] 11-07-2022 07:24-0400 Body weight 84.[address] Kevin Muñoz Work Phone: [facility] 11-05-2022 10:35-0400 Body mass index (BMI) [Ratio] 33.9 kg/m2 Dr. Kevin Muñoz Work Phone: [facility] 11-05-2022 10:35-0400 Body weight 84.[address] Kevin Muñoz Work Phone: [facility] 11-05-2022 10:35-0400 Diastolic blood pressure 71 mm[Hg] Dr. Kevin Muñoz Work Phone: [facility] 11-05-2022 10:35-0400 Systolic blood pressure 104 mm[Hg] Dr. Kevin Muñoz Work Phone: [phone] [place] [address] 11-01-2022 11:18-0400 Body mass index (BMI) [Ratio] 33.9 kg/m2 Dr. Kevin Muñoz Work Phone: [facility] 11-01-2022 11:18-0400 Body weight 84.[address] Kevin Muñoz Work Phone: [facility] 11-01-2022 11:18-0400 Diastolic blood pressure 72 mm[Hg] Dr. Kevin Muñoz Work Phone: [facility] 11-01-2022 11:18-0400 Systolic blood pressure 114 mm[Hg] Dr. Kevin Muñoz Work Phone: [facility] 10-29-2022 09:53-0400 Body mass index (BMI) [Ratio] 33.9 kg/m2 Dr. Kevin Muñoz Work Phone: [facility] 10-29-2022 09:53-0400 Body weight 84.[address] Kevin Muñoz Work Phone: [facility] 10-29-2022 09:53-0400 Diastolic blood pressure 75 mm[Hg] Dr. Kevin Muñoz Work Phone: [facility] 10-29-2022 09:53-0400 Systolic blood pressure 118 mm[Hg] Dr. Kevin Muñoz Work Phone: [facility] 10-25-2022 10:20-0400 Body mass index (BMI) [Ratio] 34 kg/m2 Dr. Kevin Muñoz Work Phone: [facility] 10-25-2022 10:20-0400 Body weight 84.[address] Kevin Muñoz Work Phone: [facility] 10-25-2022 10:20-0400 Diastolic blood pressure 69 mm[Hg] Dr. Kevin Muñoz Work Phone: [facility] 10-25-2022 10:20-0400 Systolic blood pressure 102 mm[Hg] Dr. Kevin Muñoz Work Phone: [facility] 10-22-2022 11:08-0400 Body height 157.[address] Kevin Muñoz Work Phone: [facility] 10-22-2022 11:08-0400 Body mass index (BMI) [Ratio] 33.7 kg/m2 Dr. Kevin Muñoz Work Phone: [facility] 10-22-2022 11:08-0400 Body weight 83.[address] Kevin Muñoz Work Phone: [facility] 10-22-2022 11:08-0400 Diastolic blood pressure 75 mm[Hg] Dr. Kevin Muñoz Work Phone: [facility] 10-22-2022 11:08-0400 Systolic blood pressure 109 mm[Hg] Dr. Kevin Muñoz Work Phone: [facility] 10-19-2022 10:55-0400 Diastolic blood pressure 69 mm[Hg] Dr. Kevin Muñoz Work Phone: [facility] 10-19-2022 10:55-0400 Systolic blood pressure 108 mm[Hg] Dr. Kevin Muñoz Work Phone: [facility] 10-19-2022 10:16-0400 Body mass index (BMI) [Ratio] 33.5 kg/m2 Dr. Kevin Muñoz Work Phone: [facility] 10-19-2022 10:16-0400 Body weight 83.[address] Kevin Muñoz Work Phone: [facility] 10-16-2022 09:06-0400 Body mass index (BMI) [Ratio] 33.6 kg/m2 Dr. Kevin Muñoz Work Phone: [facility] 10-16-2022 09:06-0400 Body weight 83.[address] Kevin Muñoz Work Phone: [facility] 10-16-2022 09:06-0400 Diastolic blood pressure 70 mm[Hg] Dr. Kevin Muñoz Work Phone: [facility] 10-16-2022 09:06-0400 Systolic blood pressure 105 mm[Hg] Dr. Kevin Muñoz Work Phone: [facility] 10-11-2022 10:16-0400 Body mass index (BMI) [Ratio] 33.5 kg/m2 Dr. Kevin Muñoz Work Phone: [facility] 10-11-2022 10:16-0400 Body weight 83.[address] Kevin Muñoz Work Phone: [facility] 10-11-2022 10:16-0400 Diastolic blood pressure 66 mm[Hg] Dr. Kevin Muñoz Work Phone: [facility] 10-11-2022 10:16-0400 Systolic blood pressure 96 mm[Hg] Dr. Kevin Muñoz Work Phone: [facility] 10-08-2022 11:10-0400 Body weight 83.[address] Kevin Muñoz Work Phone: [facility] 10-08-2022 11:10-0400 Diastolic blood pressure 72 mm[Hg] Dr. Kevin Muñoz Work Phone: [facility] 10-08-2022 11:10-0400 Systolic blood pressure 106 mm[Hg] Dr. Kevin Muñoz Work Phone: [facility] 10-05-2022 09:20-0400 Diastolic blood pressure 69 mm[Hg] Dr. Kevin Muñoz Work Phone: [facility] 10-05-2022 09:20-0400 Systolic blood pressure 103 mm[Hg] Dr. Kevin Muñoz Work Phone: [facility] 10-05-2022 08:29-0400 Body mass index (BMI) [Ratio] 33.9 kg/m2 Dr. Kevin Muñoz Work Phone: [facility] 10-05-2022 08:29-0400 Body weight 84.[address] Kevin Muñoz Work Phone: [facility] 10-01-2022 13:29-0400 Body mass index (BMI) [Ratio] 33.3 kg/m2 Dr. Kevin Muñoz Work Phone: [facility] 10-01-2022 13:29-0400 Body weight 82.[address] Kevin Muñoz Work Phone: [facility] 10-01-2022 13:29-0400 Diastolic blood pressure 72 mm[Hg] Dr. Kevin Muñoz Work Phone: [facility] 10-01-2022 13:29-0400 Systolic blood pressure 111 mm[Hg] Dr. Kevin Muñoz Work Phone: [facility] 09-28-2022 10:45-0400 Body mass index (BMI) [Ratio] 33.8 kg/m2 Dr. Kevin Muñoz Work Phone: [facility] 09-28-2022 10:45-0400 Body weight 83.[address] Kevin Muñoz Work Phone: [facility] 09-28-2022 10:45-0400 Diastolic blood pressure 69 mm[Hg] Dr. Kevin Muñoz Work Phone: [facility] 09-28-2022 10:45-0400 Systolic blood pressure 106 mm[Hg] Dr. Kevin Muñoz Work Phone: [facility] 09-12-2022 10:39-0400 Body mass index (BMI) [Ratio] 33.5 kg/m2 Dr. Kevin Muñoz Work Phone: [facility] 09-12-2022 10:39-0400 Body weight 83.[address] Kevin Muñoz Work Phone: [facility] 09-12-2022 10:39-0400 Diastolic blood pressure 56 mm[Hg] Dr. Kevin Muñoz Work Phone: [facility] 09-12-2022 10:39-0400 Systolic blood pressure 98 mm[Hg] Dr. Kevin Muñoz Work Phone: [facility] 08-24-2022 10:41-0500 Body mass index (BMI) [Ratio] 34 kg/m2 Dr. Kevin Muñoz Work Phone: [facility] 08-24-2022 10:41-0500 Body weight 84.[address] Kevin Muñoz Work Phone: [facility] 08-24-2022 10:41-0500 Diastolic blood pressure 72 mm[Hg] Dr. Kevin Muñoz Work Phone: [facility] 08-24-2022 10:41-0500 Systolic blood pressure 104 mm[Hg] Dr. Kevin Muñoz Work Phone: [facility] 08-08-2022 09:46-0500 Body height 157.[address] Kevin Muñoz Work Phone: [facility] 08-08-2022 09:46-0500 Body mass index (BMI) [Ratio] 34 kg/m2 Dr. Kevin Muñoz Work Phone: [facility] 08-08-2022 09:46-0500 Body weight 84.[address] Kevin Muñoz Work Phone: [facility] 08-08-2022 09:46-0500 Diastolic blood pressure 72 mm[Hg] Dr. Kevin Muñoz Work Phone: [facility] 08-08-2022 09:46-0500 Systolic blood pressure 104 mm[Hg] Dr. Kevin Muñoz Work Phone: [facility] 07-11-2022 09:52-0500 Body height 157.[address] Kevin Muñoz Work Phone: [facility] Work Phone: 07-11-2022 09:52-0500 Body mass index (BMI) [Ratio] 33.5 kg/m2 Dr. Kevin Muñoz Work Phone: [facility] 07-11-2022 09:52-0500 Body weight 83.[address] Kevin Muñoz Work Phone: [facility] 07-11-2022 09:52-0500 Diastolic blood pressure 59 mm[Hg] Dr. Kevin Muñoz Work Phone: [facility] 07-11-2022 09:52-0500 Systolic blood pressure 99 mm[Hg] Dr. Kevin Muñoz Work Phone: [facility] 06-29-2022 10:25-0500 Body mass index (BMI) [Ratio] 33.5 kg/m2 Dr. Kevin Muñoz Work Phone: [facility] 06-29-2022 10:25-0500 Body temperature 97 [degF] Dr. Keivn Muñoz Work Phone: [facility] 06-29-2022 10:25-0500 Body weight 83.[address] Kvein Muñoz Work Phone: [facility] 06-29-2022 10:25-0500 Diastolic blood pressure 66 mm[Hg] Dr. Kevin Muñoz Work Phone: [facility] 06-29-2022 10:25-0500 Heart rate 89 /min Dr. Kevin Muñoz Work Phone: [facility] 06-29-2022 10:25-0500 Respiratory rate 18 /min Dr. Kevin Muñoz Work Phone: [facility] 06-29-2022 10:25-0500 SaO2% (BldA) [Mass fraction] 98 % Dr. Kevin Muñoz Work Phone: [facility] 06-29-2022 10:25-0500 Systolic blood pressure 100 mm[Hg] Dr. Kevin Muñoz Work Phone: [facility] 06-12-2022 13:54-0500 Body height 157.[address] Kevin Muñoz Work Phone: [facility] Work Phone: 06-12-2022 13:54-0500 Body mass index (BMI) [Ratio] 34.2 kg/m2 Dr. Kevin Muñoz Work Phone: [facility] 06-12-2022 13:54-0500 Body weight 84.[address] Kevin Muñoz Work Phone: [facility] 06-12-2022 13:54-0500 Diastolic blood pressure 72 mm[Hg] Dr. Kevin Muñoz Work Phone: [facility] 06-12-2022 13:54-0500 Systolic blood pressure 108 mm[Hg] Dr. Kevin Muñoz Work Phone: [facility] 05-28-2022 14:17-0500 Body mass index (BMI) [Ratio] 34.4 kg/m2 Dr. Kevin Muñoz Work Phone: [facility] 05-28-2022 14:17-0500 Body weight 85.[address] Kevin Muñoz Work Phone: [facility] 05-28-2022 14:17-0500 Diastolic blood pressure 76 mm[Hg] Dr. Kevin Muñoz Work Phone: [facility] 05-28-2022 14:17-0500 Systolic blood pressure 124 mm[Hg] Dr. Kevin Muñoz Work Phone: [facility] 05-09-2022 11:17-0500 Body height 157.[address] Kevin Muñoz Work Phone: [facility] Work Phone: 05-09-2022 11:17-0500 Body mass index (BMI) [Ratio] 34.4 kg/m2 Dr. Kevin Muñoz Work Phone: [facility] 05-09-2022 11:17-0500 Body weight 85.[address] Kevin Muñoz Work Phone: [facility] 05-09-2022 11:17-0500 Diastolic blood pressure 72 mm[Hg] Dr. Kevin Muñoz Work Phone: [facility] 05-09-2022 11:17-0500 Systolic blood pressure 114 mm[Hg] Dr. Kevin Muñoz Work Phone: [facility] 04-12-2022 15:08-0400 Body height 157.[address] Kevin Muñoz Work Phone: [facility] Work Phone: 04-12-2022 15:08-0400 Body mass index (BMI) [Ratio] 34.9 kg/m2 Dr. Kevin Muñoz Work Phone: [facility] Work Phone: 04-12-2022 15:08-0400 Body weight 86.[address] Kevin Muñoz Work Phone: [facility] Work Phone: 04-12-2022 15:08-0400 Diastolic blood pressure 69 mm[Hg] Dr. Kevin Muñoz Work Phone: [facility] Work Phone: 04-12-2022 15:08-0400 Systolic blood pressure 111 mm[Hg] Dr. Kevin Muñoz Work Phone: [facility] Work Phone: 03-26-2022 08:35-0400 Body height 157.[address] Kevin Muñoz Work Phone: [facility] Work Phone: 03-26-2022 08:29-0400 Body mass index (BMI) [Ratio] 34.5 kg/m2 Dr. Kevin Muñoz Work Phone: [facility] Work Phone: 03-26-2022 08:29-0400 Body weight 85.[address] Kevin Muñoz Work Phone: [facility] Work Phone: 03-26-2022 08:29-0400 Diastolic blood pressure 82 mm[Hg] Dr. Kevin Muñoz Work Phone: [facility] Work Phone: 03-26-2022 08:29-0400 Systolic blood pressure 124 mm[Hg] Dr. Kevin Muñoz Work Phone: [facility] Work Phone: 12-08-2021 09:42-0400 Body height 158.75 cm PANDA FRANCOIS TYPE BAR AND SEGMENT ASSEMBLER-C Work Phone: [facility].; [facility] CENTERDrawQuestGeorge C. Grape Community HospitalGlobal Industry [facility]. 12-08-2021 09:42-0400 Body mass index (BMI) [Ratio] 33.66 kg/m2 PANDA FRANCOIS TYPE BAR AND SEGMENT ASSEMBLER-C Work Phone: [facility].; [facility] CENTERDrawQuestGeorge C. Grape Community HospitalGlobal Industry [facility]. 12-08-2021 09:42-0400 Body surface area Derived from formula 1.87 m2 PANDA HOFSTETTER TYPE BAR AND SEGMENT ASSEMBLER-C Work Phone: [employer] [facility] Chron[facility] IllVeriTeQ Corporation; [employer] [facility] [employer]. 12-08-2021 09:42-0400 Body temperature 98.9 [degF] PANDA QUINTANATETTER TYPE BAR AND SEGMENT ASSEMBLER-C Work Phone: [facility] [employer] [facility] Chronically IllVeriTeQ Corporation; [employer] [facility] [employer]. Comment on above: Method: Oral 12-08-2021 09:42-0400 Body weight 84.82 kg PANDA QUINTANATETTER TYPE BAR AND SEGMENT ASSEMBLER-C Work Phone: [employer] [facility]3P [employer].; [employer] [facility] [employer]. 12-08-2021 09:42-0400 Diastolic blood pressure 72 mm[Hg] PANDA QUINTANATETTER TYPE BAR AND SEGMENT ASSEMBLER-C Work Phone: [employer]; [employer] [facility] [employer]. Comment on above: Patient Position: Sitting; Cuff Location : Left Arm; Cuff Size: Large 12-08-2021 09:42-0400 Heart rate 74 /min PANDA JOSHUATTER TYPE BAR AND SEGMENT ASSEMBLER-C Work Phone: [employer]; [employer] [facility] [employer]. Comment on above: Pattern: Regular 12-08-2021 09:42-0400 Systolic blood pressure 103 mm[Hg] PANDA QUINTANATETTER TYPE BAR AND SEGMENT ASSEMBLER-C Work Phone: [employer]. Comment on above: Patient Position: Sitting; Cuff Location : Left Arm; Cuff Size: Large 07-10-2021 11:38-0500 Body height 158.75 cm PANDA QUINTANATETTER TYPE BAR AND SEGMENT ASSEMBLER-C Work Phone: [employer].; [employer]. 07-10-2021 11:38-0500 Body mass index (BMI) [Ratio] 33.84 kg/m2 PANDA HOFSTETTER TYPE BAR AND SEGMENT ASSEMBLER-C Work Phone: [facility] [employer] [facility] Chronically IllVeriTeQ Corporation; [employer] [facility] C[employer]il[employer] [facility]3P [employer]. 07-10-2021 11:38-0500 Body surface area Derived from formula 1.87 m2 PANDA QUINTANATETTER TYPE BAR AND SEGMENT ASSEMBLER-C Work Phone: [facility] HospitalTeabox [facility] Chron[facility] IllVeriTeQ Corporation; [employer] [facility] [employer] [facility]3P [employer]. 07-10-2021 11:38-0500 Body temperature 98 [degF] PANDA QUINTANATETTER TYPE BAR AND SEGMENT ASSEMBLER-C Work Phone: [facility] C[employer]il[employer] [facility] Chron[facility] IllVeriTeQ Corporation; [employer] [facility] Leonard [employer] Comment on above: Method: Oral 07-10-2021 11:38-0500 Body weight 85.28 kg PANDA QUINTANATETTER TYPE BAR AND SEGMENT ASSEMBLER-C Work Phone: [facility] [employer] [facility] Chron[facility] IllVeriTeQ Corporation; [employer] [facility] [employer]. 07-10-2021 11:38-0500 Diastolic blood pressure 82 mm[Hg] PANDA QUINTANATETTER TYPE BAR AND SEGMENT ASSEMBLER-C Work Phone: [facility] [employer] [facility] Chron[facility] IllVeriTeQ Corporation; [employer] 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 [employer] [facility] Chron[facility] IllVeriTeQ Corporation Comment on above: Pattern: Regular 07-10-2021 11:38-0500 Inhaled oxygen concentration 21 % PANDA QUINTANATETTER TYPE BAR AND SEGMENT ASSEMBLER-C Work Phone: [employer] LeonardTeabox [facility] Chronically IllVeriTeQ Corporation; [employer]EK [employer] [facility] [employer] Comment on above: Room air 07-10-2021 11:38-0500 SaO2% (BldA) [Mass fraction] 98 % PANDA HOFSTETTER TYPE BAR AND SEGMENT ASSEMBLER-C Work Phone: [employer].; [employer]. 07-10-2021 11:38-0500 Systolic blood pressure 151 mm[Hg] PANDA QUINTANATETTER TYPE BAR AND SEGMENT ASSEMBLER-C Work Phone: [employer].; [employer]. Comment on above: Patient Position: Sitting; Cuff Location : Left Arm; Cuff Size: Standard 04-16-2017 15:48-0400 Body height 158.75 cm PANDA QUINTANATETTER TYPE BAR AND SEGMENT ASSEMBLER-C Work Phone: [employer].; [employer] [facility] [employer]. 04-16-2017 15:48-0400 Body mass index (BMI) [Ratio] 27.54 kg/m2 PANDA Concordia HealthcareKRISTINETETTER TYPE BAR AND SEGMENT ASSEMBLER-C Work Phone: [employer].; [employer]. 04-16-2017 15:48-0400 Body surface area Derived from formula 1.72 m2 PANDA Aperto NetworksTTER TYPE BAR AND SEGMENT ASSEMBLER-C Work Phone: [employer]; [employer]. 04-16-2017 15:48-0400 Body weight 69.4 kg PANDA QUINTANATETTER TYPE BAR AND SEGMENT ASSEMBLER-C Work Phone: [employer].; [employer] [facility] [employer]. 04-16-2017 15:48-0400 Diastolic blood pressure 72 mm[Hg] PANDA Concordia HealthcareFSTETTER TYPE BAR AND SEGMENT ASSEMBLER-C Work Phone: [employer].; Rel[employer] The[employer]EK [employer]. Comment on above: Patient Position: Sitting; Cuff Location : Left Arm; Cuff Size: Standard 04-16-2017 15:48-0400 Heart rate 69 /min PANDA SALMONVULCUNTETTER TYPE BAR AND SEGMENT ASSEMBLER-C Work Phone: [employer]; [facility] [employer] [facility]3P [employer]. Comment on above: Pattern: Regular 04-16-2017 15:48-0400 Systolic blood pressure 109 mm[Hg] PANDA FRANCOIS TYPE BAR AND SEGMENT ASSEMBLER-Shoaib Work Phone: [facility] CenterVeriTeQ Corporation; [facility] C[employer] [facility] Chron[facility] IllVeriTeQ Corporation Comment on above: Patient Position: Sitting; Cuff Location : Left Arm; Cuff Size: Standard 03-19-2017 14:14-0400 Body height 158.75 cm BIRD GARCIA RN [facility]3P [employer].; [facility]3P [employer]. 03-19-2017 14:14-0400 Body mass index (BMI) [Ratio] 27.72 kg/m2 BIRD GARCIA RN [facility] [employer] [facility]3P [employer].; [facility] [employer] [facility]3P [employer]. 03-19-2017 14:14-0400 Body surface area Derived from formula 1.72 m2 BIRD GARCIA RN [facility] [employer] [facility]3P [employer].; [facility]3P [employer]. 03-19-2017 14:14-0400 Body weight 69.85 kg BIRD GARCIA RN [facility] [employer] [facility]3[employer].; [facility] [employer] [facility]3P [employer]. 03-19-2017 14:14-0400 Diastolic blood pressure 66 mm[Hg] BIRD GRATE SARWAT [facility] [employer] [facility]3P [employer].; [facility] [employer] [facility]3P [employer]. Comment on above: Patient Position: Sitting; Cuff Location : Left Arm; Cuff Size: Large 03-19-2017 14:14-0400 Heart rate 64 /min BIRD GARCIA RN [facility] [employer] [facility]3P [employer].; [facility] [employer] [facility]3P [employer]. Comment on above: Pattern: Regular 03-19-2017 14:14-0400 Systolic blood pressure 98 mm[Hg] BIRD GRATE SARWAT [facility] [employer] [facility]3P [employer].; [facility], [place] C[employer]il[employer] [facility]3P [employer]. Comment on above: Patient Position: Sitting; Cuff Location : Left Arm; Cuff Size: Large 09-03-2014 10:58-0500 Body height 158.75 cm LIVIA WEEKS [facility] [employer] [facility]3P [employer].; [facility]3P [employer]. 09-03-2014 10:58-0500 Body mass index (BMI) [Ratio] 24.48 kg/m2 LIVIA [facility] It[employer] [facility] Chron[facility] IllGlobal Industry Inc.; Milo Leonard C[employer]il[employer] [facility], Inc. 09-03-2014 10:58-0500 Body surface area Derived from formula 1.63 m2 LIVIA [facility] [employer] [facility], Inc.; [employer] [facility] C[employer]il[employer] [facility], Inc. 09-03-2014 10:58-0500 Body temperature 98.1 [degF] LIVIA [facility] HospitalTeabox [facility] IllGlobal Industry Inc.; [employer] [facility] [employer] [facility], Inc. Comment on above: Method: Oral 09-03-2014 10:58-0500 Body weight 61.69 kg LIVIA [facility] [employer] [facility]3P [employer].; [facility] [employer] [facility], Inc. 09-03-2014 10:58-0500 Diastolic blood pressure 65 mm[Hg] LIVIA [facility] [employer] [facility]3P [employer].; [employer] [facility] [employer] [facility], Inc. Comment on above: Patient Position: Sitting; Cuff Location : Left Arm; Cuff Size: Standard 09-03-2014 10:58-0500 Heart rate 72 /min LIVIA [facility] [employer].; Milo Leonard [employer] [facility], [employer]. Comment on above: Pattern: Regular 09-03-2014 10:58-0500 Systolic blood pressure 98 mm[Hg] LIVIACellw[facility]Park[facility] [employer].; [employer]-contratos [facility] Leonard [employer] Comment on above: Patient Position: Sitting; Cuff Location : Left Arm; Cuff Size: Standard 04-29-2013 13:10-0400 Body height 158.75 cm LIVIA [facility] [employer].; [facility] C[employer] [facility], Inc. 04-29-2013 13:10-0400 Body mass index (BMI) [Percentile] Per age and sex 76 % LIVIA [facility] [employer].; [facility] [employer] [facility], Inc. 04-29-2013 13:10-0400 Body mass index (BMI) [Ratio] 24.48 kg/m2 LIVIA [facility] HospitalTeabox [facility], Inc.; [facility] [employer] [facility], Inc. 04-29-2013 13:10-0400 Body surface area Derived from formula 1.63 m2 LIVIA [facility] [employer] [facility]3[employer].; [employer]-contratos [facility] [employer] [facility], Inc. 04-29-2013 13:100400 Body temperature 98.4 [degF] LIVIA [facility] [employer] [facility]3P [employer].; [employer]-contratos [facility] [employer] [facility], Inc. Comment on above: Method: Oral 04-29-2013 13:100400 Body weight 61.69 kg LIVIA [facility] HospitalTeabox [facility]3P [employer].; [facility] C[employer] [facility], Inc. 04-29-2013 13:100400 Diastolic blood pressure 66 mm[Hg] LIVIA [facility] [employer] [facility]3[employer].; [employer]atos [facility] [employer] [facility], Inc. Comment on above: Patient Position: Sitting; Cuff Location : Left Arm; Cuff Size: Standard 04-29-2013 13:100400 Heart rate 77 /min LIVIA [facility] [employer] [facility]3[employer].; [employer]-contratos [facility] [employer] [facility], [employer]. Comment on above: Pattern: Regular 04-29-2013 13:100400 Systolic blood pressure 103 mm[Hg] LIVIA [facility] Itaro [facility]3P [employer].; [employer]-contratos [facility] [employer] [facility], Inc. Comment on above: Patient Position: Sitting; Cuff Location : Left Arm; Cuff Size: Standard 08-06-2012 10:27-0500 Body height 158.75 cm PANDA RAMIREZBasysPWIB Work Phone: [employer] [facility] [employer]erv[employer] [facility] IllGlobal Industry Inc. 08-06-2012 10:27-0500 Body mass index (BMI) [Percentile] Per age and sex 60 % APNDA QUINTANADailyBoothPWIB Work Phone: [employer].; [employer] [facility] [employer] Inc. 08-06-2012 10:27-0500 Body mass index (BMI) [Ratio] 22.32 kg/m2 PANDA SALMONNewlans-C Work Phone: [employer] [facility] [employer] [facility] Inc. 08-06-2012 10:27-0500 Body surface area Derived from formula 1.57 m2 PANDA FRANCOIS TYPE BAR AND SEGMENT ASSEMBLER-C Work Phone: [employer]; [employer]. 08-06-2012 10:27-0500 Body temperature 98 [degF] PANDA FRANCOIS TYPE BAR AND SEGMENT ASSEMBLER-C Work Phone: [employer].; [employer] [facility]3[employer]. Comment on above: Method: Oral 08-06-2012 10:27-0500 Body weight 56.25 kg PANDA FRANCOIS TYPE BAR AND SEGMENT ASSEMBLER-C Work Phone: [employer].; [employer] [facility] [employer]. 08-06-2012 10:27-0500 Diastolic blood pressure 76 mm[Hg] PANDA RAMIREZER TYPE BAR AND SEGMENT ASSEMBLER-C Work Phone: [employer]; [employer]. Comment on above: Patient Position: Sitting; Cuff Location : Left Arm; Cuff Size: Standard 08-06-2012 10:27-0500 Heart rate 94 /min PANDA FRANCOIS TYPE BAR AND SEGMENT ASSEMBLER-C Work Phone: [employer]; [employer]. Comment on above: Pattern: Regular 08-06-2012 10:27-0500 Systolic blood pressure 111 mm[Hg] PANDA FRANCOIS TYPE BAR AND SEGMENT ASSEMBLER-C Work Phone: [employer]; [employer]. Comment on above: Patient Position: Sitting; Cuff Location : Left Arm; Cuff Size: Standard 08-03-2011 14:55-0500 Body height 158.12 cm LIVIACellwitchYER [employer].; [employer]-contratos [facility] Leonard [employer]. 08-03-2011 14:55-0500 Body mass index (BMI) [Percentile] Per age and sex 24 % LIVIACellwitchYER [employer].; Milo Leonard [employer]. 08-03-2011 14:55-0500 Body mass index (BMI) [Ratio] 19.23 kg/m2 LIVIA [place] It[facility]3[employer].; [employer] [facility] C[employer] [facility]3[employer]. 08-03-2011 14:55-0500 Body surface area Derived from formula 1.46 m2 LIVIA [facility] Itaro [facility]3[employer].; [employer]-contratos [facility] [employer] [facility]3[employer]. 08-03-2011 14:55-0500 Body temperature 98.3 [degF] [facility]IA [facility] Hospital[facility]abox [facility]3P [employer].; e-contratos [facility] Cervil[employer] [facility] IllGlobal Industry Inc. Comment on above: Method: Oral 08-03-2011 14:55-0500 Body weight 48.08 kg LIVIA [facility] Itaro [facility]3[employer].; [employer] [facility] C[employer] [facility] IllGlobal Industry Inc. 08-03-2011 14:55-0500 Diastolic blood pressure 74 mm[Hg] LIVIA [facility] Itaro [facility]3[employer].; e-contratos [facility] [employer] [facility]3[employer]. Comment on above: Patient Position: Sitting; Cuff Location : Left Arm; Cuff Size: Standard 08-03-2011 14:55-0500 Heart rate 105 /min LIVIA [facility] Itaro [facility]3[employer].; [employer]. Comment on above: Pattern: Regular 08-03-2011 14:55-0500 Systolic blood pressure 114 mm[Hg] LIVIA [facility] Itaro [facility]3[employer].; e-contratos [facility] [employer] [facility]3[employer]. Comment on above: Patient Position: Sitting; Cuff Location : Left Arm; Cuff Size: Standard Encounters Encounter Date Encounter Type Care Provider Facility Start: 12-28-2024 [facility] Kevin Muñoz Facility: [facility] Start: 12-16-2024 End: 12-16-2024 Office outpatient visit 10 minutes EDITH EVANS Work Phone: [facility] [employer] [facility]3[employer] Start: 04-30-2024 End: 04-30-2024 Results Review PANDA EVANS [facility] [employer] [facility]3[employer] Start: 04-29-2024 Review [facility] Start: 04-29-2024 End: 04-29-2024 Office outpatient visit 15 minutes PANDA MACHUCAC [facility], [facility] Start: 08-02-2023 End: 08-02-2023 [facility] Start: 08-02-2023 End: 08-02-2023 Follow-up encounter PANDA PRISCILA TYPE BAR AND SEGMENT ASSEMBLER-C Work Phone: [facility] Start: 08-01-2023 End: 08-01-2023 Office outpatient visit 10 minutes PANDA PRISCILA TYPE BAR AND SEGMENT ASSEMBLER-C Work Phone: [facility] Start: 08-01-2023 End: 08-01-2023 ambulatory PANDA QUINTANAANGELACATHY [facility] Start: 11-08-2022 Non-patient / Non-visit Dr. Kevin Muñoz Work Phone: [facility] Start: 11-07-2022 Non-patient / Non-visit Dr. Kevin Muñoz Work Phone: [facility] Start: 11-07-2022 End: 11-08-2022 Evaluation and management of inpatient Dr. Kevin Muñoz Work Phone: [facility] Start: 11-05-2022 End: 11-05-[address] Kevin Muñoz Work Phone: [facility] Start: 11-01-2022 End: 11-01-[address] Kevin Muñoz Work Phone: [facility] Start: 10-29-2022 End: 10-29-[address] Kevin Muñoz Work Phone: [facility] Start: 10-25-2022 End: 10-25-[address] Kevin Muñoz Work Phone: [facility] Start: 10-22-2022 End: 10-22-[address] Kevin Muñoz Work Phone: [facility] Start: 10-19-2022 End: 10-19-[address] Kevin Muñoz Work Phone: [facility] Work Phone: Start: 10-19-2022 End: 10-19-[address] Kevin Muñoz Work Phone: [facility] Start: 10-16-2022 End: 10-16-[address] Kevin Muñoz Work Phone: [facility] Start: 10-11-2022 End: 10-11-[address] Kevin Muñoz Work Phone: [facility] Start: 10-08-2022 End: 10-08-[address] Kevin Muñoz Work Phone: [facility] Start: 10-05-2022 End: 10-05-[address] Kevin Muñoz Work Phone: [facility] Start: 10-01-2022 End: 10-01-[address] Kevin Muñoz Work Phone: [facility] Start: 09-28-2022 End: 09-28-[address] Kevin Muñoz Work Phone: [facility] Start: 09-12-2022 End: 09-12-[address] Kevin Muñoz Work Phone: [facility] Start: 08-24-2022 End: 08-24-[address] Kevin Muñoz Work Phone: [facility] Start: 08-08-2022 End: 08-08-[address] Kevin Muñoz Work Phone: [facility] Work Phone: Start: 08-08-2022 End: 08-08-[address] Kevin Muñoz Work Phone: [facility] Start: 07-11-2022 End: 07-11-[address] Kevin Muñoz Work Phone: [facility] Work Phone: Start: 07-11-2022 End: 07-11-[address] Kevin Muñoz Work Phone: [facility] Start: 06-29-2022 End: 06-29-[address] Kevin Muñoz Work Phone: [facility] Start: 06-20-2022 End: 06-20-[address] Kevin Muñoz Work Phone: [facility] Work Phone: Start: 06-20-2022 End: 06-20-[address] Kevin Muñoz Work Phone: [facility] Start: 06-12-2022 End: 06-12-[address] Kevin Muñoz Work Phone: [facility] Start: 05-28-2022 End: 05-28-[address] Kevin Muñoz Work Phone: [facility] Start: 05-11-2022 End: 05-11-[address] Kevin Muñoz Work Phone: [facility] Work Phone: Start: 05-11-2022 End: 05-11-[address] [facility] Start: 05-09-2022 End: 05-09-[address] Kevin Muñoz Work Phone: [facility] Work Phone: Start: 05-09-2022 End: 05-09-[address] [facility] Start: 05-09-2022 End: 05-09-[address] Kevin Muñoz Work Phone: [facility] Start: 04-12-2022 End: 04-12-[address] Kevin Muñoz Work Phone: [facility] Work Phone: Start: 04-12-2022 End: 04-12-[address] [facility] Start: 04-12-2022 End: 04-12-[address] Kevin Muñoz Work Phone: [facility] Start: 03-31-2022 Non-patient / Non-visit Dr. Kevin Muñoz Work Phone: [facility] Start: 03-26-2022 End: 03-26-[address] Kevin Muñoz Work Phone: [facility] Start: 03-23-2022 End: 03-23-[address] Kevin Muñoz Work Phone: [facility] Work Phone: Start: 03-23-2022 End: 03-23-[address] Kevin Muñoz Work Phone: [facility] Start: 03-21-2022 End: 03-21-[address] [facility] Start: 12-08-2021 End: 12-08-2021 Office outpatient visit 10 minutes PANDA FRANCOIS TYPE BAR AND SEGMENT ASSEMBLER-C Work Phone: [facility] [employer] [facility]3[employer]. 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 hvac manager Off Start: 07-10-2021 End: 07-10-2021 Office outpatient visit 10 minutes PANDA FRANCOIS TYPE BAR AND SEGMENT ASSEMBLER-C Work Phone: [facility] [employer] Start: 04-16-2017 End: 04-16-2017 Office outpatient visit 15 minutes PANDA RAMRIEZER TYPE BAR AND SEGMENT ASSEMBLER-C Work Phone: [facility] C[employer] [facility] IllVeriTeQ Corporation Start: 03-19-2017 End: 03-19-2017 Office outpatient visit 15 minutes PANDA RAMIREZER TYPE BAR AND SEGMENT ASSEMBLER-C Work Phone: [facility] [employer] Start: 09-03-2014 End: 09-03-2014 Office outpatient visit 15 minutes PANDA FRANCOIS TYPE BAR AND SEGMENT ASSEMBLER-C Work Phone: [facility] Start: 04-29-2013 End: 04-29-2013 Patient encounter procedure PANDA RAMIREZER TYPE BAR AND SEGMENT ASSEMBLER-C Work Phone: [facility]3[employer]. Start: 10-14-2012 End: 10-14-2012 Medication Refill/Order PANDA FRANCOIS TYPE BAR AND SEGMENT ASSEMBLER-C Work Phone: [facility] [employer] [facility]3[employer]. Start: 08-06-2012 End: 08-06-2012 Patient encounter procedure PANDA FRANCOIS TYPE BAR AND SEGMENT ASSEMBLER-C Work Phone: [facility] Start: 08-03-2011 End: 08-03-2011 OB VISIT PANDA VINCENT-Shoaib Work Phone: [facility] Procedures Date Procedure Procedure Detail Performing Clinician Start: 12-16-2024 End: 12-16-2024 No Known Past Surgical History BIRD GARCIA RN Start: 04-29-2024 End: 04-29-2024 Dischrg meds reconciled w/current med list Roverto BECKER MD Work Phone: Start: 08-01-2023 End: 08-01-2023 Dischrg meds reconciled w/current med list PANDA FRANCOIS TYPE BAR AND SEGMENT ASSEMBLER-C Work Phone: Start: 08-01-2023 End: 08-01-2023 No Known Past Surgical History Laura OLIVEIRA Start: 10-19-2022 Ultrasound scan for growth Dr. Kevin Muñoz Work Phone: Start: 07-11-2022 Ultrasonography for antepartum monitoring of fetus Dr. Kevin Muñoz Work Phone: Start: 06-20-[address] Kevin Muñoz Work Phone: Start: 12-08-2021 End: 12-08-2021 Dischrg meds reconciled w/current med list MICKI SEVILLA MD Work Phone: Start: 06-10-2019 Antibody screen PANDA VINCENT-C Group B Streptococcu s Culture Dr. Kevin Muñoz Work Phone: Urine culture Dr. Kevin jimenez Work Phone: Urine culture Dr. Kevin jimenez Work Phone: Plan of Treatment Date Care Activity Detail Author Start: 12-16-2024 Us soft tissue head & neck real time [facility] ULTRASOUND, SOFT TISSUE, NECK, LIMITED (51952) Start: 16-Dec-2024 Intent Comments: Firm mass over cervical spine [place] [employer]; [facility] [employer]. Comment on above: Firm mass over cervi job spine Start: 07-15-2024 Comprehensive metabo lic panel CMP - COMPREHENSIVE METABOLIC PANEL (32698) Start: 15-Jul-2024 Request [employer]; [facility] [employer]. Start: 04-29-2024 End: 04-29-2024 Collj & interpj physiol data min 30 min ea 30 d QUERY OARRS REPORT (29891) Date: 29-Apr-2024 [facility] [employer]; [facility] [employer]. Start: 04-29-2024 Hemoglobin glycosyla david a1c HEMOGLOBIN GLYCLATED (HGB A1C) (54100) Start: 29-Apr-2024 10:22-04:00 Request [employer].; [facility] [employer]. Start: 04-29-2024 Assay of thyroid stimulating hormone tsh TSH (THYROID STIMULATING HORMONE) (20336) Start: 29-Apr-2024 10:22-04:00 Request [employer]; [facility] [employer]. Start: 04-29-2024 Comprehensive metabo lic panel CMP - COMPREHENSIVE METABOLIC PANEL (40035) Start: 29-Apr-2024 10:22-04:00 Request [employer]; [facility] [employer]. Start: 04-29-2024 Blood count complete auto&auto difrntl wbc CBC, PLATELETS & AUT DIFF (55976) Start: 29-Apr-2024 10:22-04:00 Request [employer]; [facility] [employer]. Start: 08-01-2023 Hemoglobin glycosyla david a1c HGB A1C (62957) Start: 01-Aug-2023 13:41 Request [employer]; [facility] [employer]. Start: 11-08-2022 Patient discharge [facility] Start: 11-07-2022 Administration of medication [facility] Start: 11-07-2022 Application of ice c ollar, cap or bag [facility] Start: 11-07-2022 Catheterization of vein [facility] Start: 11-07-2022 Introduction of urin enrique catheter [facility] Start: 11-07-2022 Measuring intake and output [facility] Start: 11-07-2022 Notification of physician [facility] Start: 11-07-2022 Procedure discontinued [facility] Start: 11-07-2022 Provision of activit y privileges [facility] Start: 11-07-2022 Vital signs measurements [facility] Start: 11-07-2022 [facility] Start: 11-07-2022 Admission procedure [facility] Start: 06-12-2022 Patient referral [facility] Work Phone: Start: 04-12-2022 Chlamydia deoxyribon ucleic acid detection [facility] Work Phone: Start: 04-12-2022 Liquid based cervica l cytology screening [facility] Work Phone: Start: 07-10-2021 Urine test visual color cmprsn meths [employer]; [employer] Start: 09-03-2014 Patient Education [employer]; [employer] Start: 04-29-2013 Patient Education Contact Derm atitis: allergy Indication: Latex allergy Start: 29-Apr-2013 Instruction Type: Patient Education [employer]; [employer]. Start: 08-06-2012 Patient Education Contact Derm atitis: allergic skin reaction Indication: Contact dermatitis (Renamed from CD (contact dermatitis)) Start: 06-Aug-2012 Instruction Type: Patient Education [employer]; [employer]. CBC W Auto Different ial panel - Blood [facility] Work Phone: Drugs identified in Urine by Screen method [facility] Work Phone: anatomy study [facility] Work Phone: anatomy study [facility] Glucose [Mass/volume ] in Serum or Plasma --1 hour post 50 g glucose PO [facility] Work Phone: Hepatitis B surface antigen measurement [facility] Work Phone: Hepatitis C antibody measurement [facility] Work Phone: HIV 1+2 Ab+HIV1 p24 Ag [Presence] in Serum or Plasma by Immunoassay [facility] Work Phone: Neisseria gonorrhoea e rRNA [Presence] in Unspecified specimen by RAMON with probe detection [facility] Work Phone: Path report.final Dx Spec [facility] Work Phone: Patient Education After a Vaginal [facility] Work Phone: Patient referral [facility] Work Phone: PCR test for Chlamyd ia trachomatis [facility] Work Phone: Rubella IgG measurement [facility] Work Phone: Transvaginal obstetr ic ultrasonography [facility] Work Phone: Treponema sp Ab [Pre sence] in Serum [facility] Work Phone: [facility] Immunizations Immunization Date Immunization Notes Care Provider Lyn owusu 02-09-2007 tetanus toxoid, redu elsa diphtheria toxoid, and acellular pertussis vaccine, adsorbed PANDA FRANCOIS TYPE BAR AND SEGMENT ASSEMBLER-C Work Phone: [facility]; [facility] Payers Date Payer Category Payer Self-pay [id number] 2010 Medicaid [id number] Unknown [employer] P[employer]AN [id number] Unknown [employer] P[employer]AN [id number] Unknown [id number] Social History Date Type Detail Facility Start: 06-10-2019 End: 11-07-2022 Tobacco smoking status NHIS Unknown if ever smoked [facility] Start: 1995 Sex Assigned At Female [facility] Highest Education Le danita Attained Highest Education Level Attained [facility]; [facility] Living situation: Living situati on: ; Lives with parents. [facility]; [facility] Marital status: Marital status: ; Single. [facility]; [facility] Tobacco use: Tobacco use: ; N ever smoker. [facility] Center[facility]; [facility]3[employer] Single [facility]; [facility] [employer] Work Phone: Lives with parents [facility]; [facility]3[employer] Work Phone: Never smoked tobacco [facility]; [facility] [employer] Work Phone: Goals Date Patient Goal Desired Activity /State Clinical Notes 04-12-2022 to 11-08-2022 Note Date & Type Note Facility 11-08-2022 Progress note Note Date/Time November 08, 2022 8:07a [facility] Medical Records Department [address] [place] [id number] Progress Note - OBGYN 11/08/22 0806 MR#: [id number] Acct: [id number] Name: GRAY MUÑOZ Rep #:[id number] : 1995 27 From: Martha Rodas NP PUBLICATIONS PRODUCTION SUPERVISOR-C PCP: Dr. Kevin Muñoz MD Status:ADM IN Location: [id number] Subjective Subjective Patient doing well without complaints. Tolerating PO. Ambulating and voiding without difficulty. Feeding well. Denies chest pain, shortness of breath, calf pain/swelling, fevers, chills, lightheadedness. Objective Data Objective Data Vital Signs: Vital Signs Temp Pulse Resp BP Pulse Ox O2 Del Method 98.2 F 80 14 103/62 98 Room Air 11/08/22 04:35 11/08/22 04:35 11/08/22 04:35 11/08/22 04:35 11/07/22 19:54 11/08/22 04:35 Oxygen Delivery Method Room Air Weight: 185 lb 13.683 oz Body Mass Index (BMI) 34.0 Intake & Output: Intake and Output for Last 24 Hours 11/06/22 11/07/22 11/08/22 23:59 23:59 23:59 Intake Total 917.88 / 917.88 Output Total 500 / 500 Balance 417.88 / 417.88 Lab / Micro Data Result Diagrams: 11/07/22 07:55 Labs: Laboratory Results - last 24 hr 11/07/22 07:55: WBC 8.2, RBC 4.01 L, Hgb 12.1, Hct 36.5 L, MCV 91.0, MCH 30.2, MCHC 33.2, RDW Std Deviation 53.8 H, RDW Coeff of Ene 16.4 H, Plt Count 203, MPV11.0, Immature Gran % (Auto) 1.600 H, Neut % (Auto) 77.4 H, Lymph % (Auto) 13.2 L, Howell % (Auto) 6.6, Eos % (Auto) 0.7, Baso % (Auto) 0.5, Absolute Neuts (auto)6.3, Absolute Lymphs (auto) 1.08, Nucleated RBC % 0 11/07/22 07:55: Blood Type A POSITIVE, Antibody Screen NEGATIVE 11/07/22 07:55: Syphilis Total Ab Non-reactive 11/07/22 08:15: POC Glucose 87 11/07/22 09:18: POC Glucose 77 11/07/22 12:15: POC Glucose 68 L 11/07/22 14:09: POC Glucose 82 11/07/22 15:30: POC Glucose 101 11/08/22 05:14: POC Glucose 78 Physical Exam Const alert and oriented x3 HEENT normocephalic Eyes PERRL Neck full ROM Resp normal respiratory effort GI soft to palpation GI Narrative: FF below U Assessment & Plan (1) Spontaneous vaginal delivery: COMMENT: 11/07/22 Lizandro PUGA PLAN: Plan s/p PPD # 1 1. routine post delivery care 2. breast feeding- support given 3. rh positive 4. rubella immune 5. glucose stable 6. home today 11/08/22 0807 <Electronically signed by Martha Rodas NP PUBLICATIONS PRODUCTION SUPERVISOR-C> Cosigner Signature (if applicable): CC: ~ Signed [facility] Work Phone: [phone]) 237-212205-10-[address] Villalta [facility] November 07, 2022 4:34pm Note Date/Time November 07, 2022 4:34p m [facility] Medical Records Department [address] [place] [address] Instructions for Home/Discharge Instructions 11/07/22 163 MR#: [id number] Acct: [id number] Name: GRAY MUÑOZ Meño Rep #:[id number] : 1995 27 From: Radha Mera DO PCP: Dr. Kevin Muñoz MD Status:ADM IN Discharge Instructions Diet Discharge Diet: No restrictions Activity Discharge Activity: Return to Normal Activity, May Not Drive (while taking narcotic pain medications.) and May Shower May resume sexual activity in: 4-6 weeks Dressing / Incision Call your doctor if your incision/area has: Continuous Slow Oozing, Sudden Increased Bleeding, Increased Pain/ Swelling, Increased Redness and Foul Smelling Discharge Follow Up Care Please Follow Up With: Radha Mera DO When: Call [phone] to make an appointment with your doctor in 6 weeks. If you had elevated blood pressure or 4th degree laceration, you will need to be seen in 2 weeks. Test Results: Test results from this visit will be discussed in further detail at your follow- up appointment, if applicable. Discharge Plan Admission Admit Date/Time: 11/07/22 06:55 Attending Provider: Radha Mera Primary Care Provider: Kevin Muñoz Discharge Orders/Prescriptions Prescriptions: No Action vit,[id number] 1 TABLET tablet 1 tab PO DAILY metformin 500 mg tablet 1,000 mg PO BID Referrals / Follow Up: Kevin Muñoz MD [Primary Care Provider] - 11/07/22 1634<Electronically signed by Radha Mera DO>Radha Mera DO CC: Dr. Kevin Muñoz MD ~ Signed [facility] Work Phone: [phone]) 414-641205-10-2023 Procedure [facility] 11-07-2022 History and physical note Author Dr. Villalta [facility] November 07, 2022 8:36am Note Date/Time November 07, 2022 8:36a m [facility] Medical Records Department [address] [place] [address] H&P Exam - COVER CREASER 11/07/22 0833 MR#: [id number] Acct: [id number] Name: GRAY MUÑOZ Rep #:[id number] : 1995 27 From: Radha Mera DO PCP: Dr. Kevin Muñoz MD Status:ADM IN Location: [facility]8 HPI - General General Date of Admission: 11/07/22 HPI Narrative GRAY MUÑOZ, is a 27 y/o @ 39 weeks 3 days who presents to L&D for IOL due to pre-existing DM on metformin. Maternal Data Information SUGAR Calculator Estimated Delivery Date Method Current WG Current Estimate 11/11/22 LMP (Certain) 39w 3d Other Estimates 11/18/22 [facility] H/O gestational diabetes in prior , currently History of gestational diabetes Home Medications vits,calcium no.78-iron fumarate-folic acid 29 mg-1 mg tablet 1 tab PO DAILY vitamin 06/10/19 [History Last Taken 10/29/22 08:00] metformin 500 mg tablet 1,000 mg PO BID 11/07/22 [History Last Taken 11/06/22 18:30] Allergy/AdvReac Type Severity Reaction Status Date / Time Latex, Natural Rubber Allergy Rash Verified 11/07/22 07:26 Family History Father Heart disease Social History household members: family number of children: 2 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 Date Name GA/Weeks Outcome Route Bth Weight Gen Labor Lgth Anesthesia Del Locatn Provider FOB Unknown 2011 Cheryl 39 live - full term 5lbs 11oz Female epidural Raman Rashard Unknown 2018 Jim 39 live - full term 7lbs Male n one [facility] Xiomara Wetzel Delivery Date: Last Updated by: Elisabeth Rogers High Risk (extra fluid on brain) Resolving prior to delivery Delivery Date: Last Updated by: Elisabeth Rogers GDMA Visit Details Expected Delivery Route/Plan Labor Preferences- CB/BF classes: no labor support person: Rashard labor intervention preferences: [] pain management options preferred: limited intervention cut cord/dad catch: cord : yes PP control planned: discussed discussed possible routes of delivery and associated risks: [] special requests: [] Plans Covid status: discussed Flu vaccine: discussed Tdap vaccine: declined Rhogam: NA LARC form signed: Yes Problem list reviewed and updated with the most current plan of care details and appropriate orders placed. Relevant counseling for the gestational age provided. Continue routine care and follow up unless otherwise noted in visit notes/problem list details OB Flowsheet Initial Weight: Not Recorded Date -?-?-?-?-?-?-?-?-?-?-?-?- EGA Weight BP Urine Prot -?-?-?-?-?-?-?-?-?-?-?-?- Glucose FHR FuHt Pres Dilation -?-?-?-?-?-?-?-?-?-?-?-?- Effaced St Visit Note 04/12/22 -?-?-?-?-?-?-?-?-?-?-?--?- 9w 4d 191 lb 111/69 -?-?-?-?-?-?-?-?-?-?-?-?- 180 -?-?-?-?-?-?-?-?-?-?-?-?- SM- CRL cons wit h LMP 05/09/22 -?-?-?--?-?-?-?-?-?-?-?-?- 13w 3d 188 lb 114/72 Negative -?-?-?-?-?-?-?-?-?-?-?-?- Negative 160 -?-?-?-?-?-?-?-?-?-?-?-?- -No Vb, crampi ng. Confirmed FHT with br US. PNL and GCT today 05/28/22 -?-?-?-?-?-?-?-?-?-?-?-?- 16w 1d 188 lb 124/76 Negative -?-?-?-?-?-?-?-?-?-?-?-?- Negative 170 -?-?-?-?-?-?-?-?-?-?-?-?- MH-No Vb, crampi ng. Reviewed glucose readings and >805WNL. Some elevated were mostly breakfast and discussed diet. RTO 2 weeks 06/12/22 -?-?-?-?-?-?-?-?-?-?-?-?- 18w 2d 187 lb 4 oz 108/72 Nega tive -?-?-?-?-?-?-?-?-?-?-?-?- Negative 150 -?-?-?-?-?-?-?-?-?-?-?-?- JV- pt diagnosed with pre-existing dm due to being diagnosed with abnormal glucose prior to 20 weeks. consulted .anatomy scan scheduled 07/11/22 -?-?-?-?-?-?-?-?-?-?-?-?- 22w 3d 183 lb 8 oz 99/59 -?-?-?-?-?-?-?-?-?-?-?-?- 145 -?-?-?-?-?-?-?-?-?-?-?-?- LC- no vb/crampi ng. anatomy now complete. continues on diet controlled DM 08/08/22 -?-?-?-?-?-?-?-?-?-?-?-?- 26w 3d 186 lb 104/72 Negative -?-?-?-?-?-?-?-?-?-?-?-?- Negative 147 26 -?-?-?-?-?-?-?-?-?-?-?-?- MH-No Vb, LOF. G ood FM. Repoerting glucose to Dr Dong and good diet control. Larc 08/24/22 -?-?-?-?-?-?-?-?-?-?-?-?- 28w 5d 186 lb 104/72 Negative -?-?-?-?-?-?-?-?-?-?-?-?- Negative 145 28 -?-?-?-?-?-?-?-?-?-?-?-?- KW- no VB, LOF, Cxt. +FM. Reports good glycemic control and mood stable. no complaints. labor precautions reviewed. 09/12/22 -?-?-?-?-?-?-?-?-?-?-?-?- 31w 3d 183 lb 2 oz 98/56 Nega tive -?-?-?-?-?-?-?-?-?-?-?-?- Negative 144 31 -?-?-?-?-?-?-?--?-?-?-?-?- MH-No VB, LOF. G ood FM. Now on metformin per Dr Dong and better glucose control. 09/28/22 -?-?-?-?-?-?-?-?-?-?-?-?- 33w 5d 185 lb 2 oz 106/69 -?-?-?-?-?-?-?-?-?-?-?-?- 140 33 -?-?-?-?-?-?-?-?-?-?-?-?- SM- no vb lof go od fm no regular ctx 10/01/22 -?-?-?-?-?-?-?-?-?-?-?-?- 34w 1d 182 lb 3 oz 111/72 Nega tive -?-?-?-?-?-?-?-?-?-?-?-?- Negative 140 -?-?-?-?-?-?-?-?-?-?-?-?- MH-NST only reac tive 10/05/22 -?--?-?-?-?-?-?-?-?-?-?-?- 34w 5d 185 lb 8 oz 103/69 103/69 Negative -?-?-?-?-?-?-?-?-?-?-?-?- Negative 135 34 -?-?-?-?-?-?-?-?-?-?-?-?- KW- NST reactive . +FM, no lof/vb/ctx. Reports good glucose control. KW- NST reactive. +FM, no lo f/vb/ctx. Reports good glucose control. Discussed GBS 10/08/22 -?-?-?-?-?-?-?-?-?-?-?-?- 35w 1d 184 lb 8 oz 106/72 Nega tive -?-?-?-?-?-?-?-?-?-?-?-?- Negative 140 -?-?-?-?-?-?-?-?-?-?-?-?- BS controlled gr owth us next week 10/11/22 -?-?-?-?-?-?-?-?-?-?-?-?- 35w 4d 183 lb 2 oz 96/66 Nega tive -?-?-?-?-?-?-?-?-?-?-?-?- Negative 140 -?-?-?-?-?-?-?-?-?-?-?-?- MH-NST only reac tive 10/16/22 -?-?-?-?-?-?-?-?-?-?-?-?- 36w 2d 184 lb 105/70 Negative -?-?-?-?-?-?-?-?-?-?-?-?- Negative 140 -?-?-?-?-?-?-?-?-?-?--?-?- MH-NST only reac tive. Good glucose control 10/19/22 -?-?-?-?-?-?-?-?-?-?-?-?- 36w 5d 183 lb 8 oz 108/69 108/69 Negative -?-?-?-?-?-?-?-?-?-?-?-?- Negative 130 37 2 -?-?-?-?-?-?-?-?-?-?-?-?- 70 -3 KW- Reacti ve NST. +FM good glucose control. no vb/lof/ctx KW- Reactive NST. +FM good g lucose control. no vb/lof/ctx. GBS done. labor precautions. would like IOL at 40 weeks. if not IAL before KW- Reactive NST. Growth tod ay. +FM good glucose control. no vb/lof/ctx. GBS done. labor precautions. would like IOL at 40 weeks. if not IAL before 10/22/22 -?-?-?-?-?-?-?-?-?-?-?-?- 37w 1d 184 lb 4 oz 109/75 Nega tive -?-?-?-?-?-?-?-?-?-?-?-?- Negative 140 -?-?-?-?-?-?-?-?-?-?-?-?- -NST only reac tive 10/25/22 -?-?-?-?-?-?-?-?-?-?-?-?- 37w 4d 186 lb 2 oz 102/69 Nega tive -?-?-?-?-?-?-?-?-?-?-?-?- Negative 130 38 -?-?-?-?-?-?-?-?-?-?-?-?- -3 JV- unab le to reach external os on exam today. nst reactive. on metformin. plan for IOL at 39 weeks. () 10/29/22 -?-?-?-?-?-?-?-?-?-?-?-?- 38w 1d 185 lb 8 oz 118/75 Nega tive -?-?-?-?-?-?-?-?-?-?-?-?- Negative 140 -?-?-?-?-?-?-?-?-?-?-?-?- MH-NST only reac tive. 11/01/22 -?-?-?-?-?-?-?-?-?-?-?-?- 38w 4d 185 lb 5 oz 114/72 Nega tive -?-?-?-?-?-?-?-?-?-?-?-?- Negative 140 -?-?-?-?-?-?-?-?-?-?-?-?- SM for JV- NST r eactive. No complaints today. plan for vaginal exam next visit 11/05/22 -?-?-?-?-?-?-?-?-?-?-?-?- 39w 1d 185 lb 8 oz 104/71 Nega tive -?-?-?-?-?-?-?-?-?-?-?-?- Negative 135 -?-?-?-?-?-?-?-?-?-?-?-?- -NST only: cesia ctive. IOL set for 11/07. ROS Constitutional Constitutional: Denies change in weight, fatigue, fever(s), headache(s), poor appetite or weakness Eyes Eyes: Denies blurry vision, change in vision, seeing flashes or spots in vision ENT HEENT: Denies dizziness, headache(s), loss taste/smell or sore throat Cardiovascular Cardiovascular: Denies chest pain, dizziness, dyspnea, irregular heart rhythm, leg edema, palpitations, rapid heart rate or vomiting Respiratory/Chest Respiratory/Chest: Denies chest tightness, cough, dyspnea or breast pain Gastrointestinal Gastrointestinal: Denies abdominal pain, anorexia, constipation, cramping, diarrhea, hemorrhoids, vomiting or weight changes Genitourinary Genitourinary: Denies dysuria, flank pain, genital lesions, genital pain, urinary frequency or urinary urgency Musculoskeletal Musculoskeletal: Denies back pain, difficulty walking, joint pain, limited range of motion, muscle cramps or numbness Integumentary Integumentary: Denies lesions or unusual bruising Neurologic Neurologic: Denies abnormal movements, abnormal speech, dizziness, numbness, seizure-like activity or syncope Psychiatric Psychiatric: Denies anxiety, behavioral changes, change in appetite, change in libido, cognitive impairment, confusion, depression, difficulty concentrating, hallucinations or suicidal thoughts Endocrine Endocrinology: Denies excessive sweating, polydipsia or polyuria Hematologic/Lymphatic Hematologic/Lymphatic: Denies easy bleeding, easy bruising or lymphadenopathy Allergic/Immunologic Allergic/Immunologic: Denies itchy eyes, lip swelling, seasonal rhinorrhea, rhinitis, throat swelling, tongue swelling, eczemia, wheezing or asthma Vital Signs Vital Signs Vital Signs: Weight Weight: 185 lb 13.683 oz Body Mass Index (BMI) 34.0 Physical Exam Const alert, oriented x3, no apparent distress and healthy appearing General Appearance: cooperative; Negative for anxious HEENT normocephalic Face and Sinus: normal facial exam Eyes EOMs intact bilaterally and no scleral icterus General Eye: normal appearance of both eyes Neck full ROM and supple Lymph Lymphatic: no lymphadenopathy noted Chest Chest: abnormal inspection of the chest Resp normal respiratory effort Effort and Inspection: able to speak in complete sentences Cardio regular rate GI soft to palpation and non-tender Inspection: gravid Palpation: soft; Negative for tender external exam normal Narrative: cx is 4/80/-2, bulging membranes Amniotic Fluid: ROM+plus Back/Spine no CVA tenderness Extremity normal to inspection, full ROM and no clubbing, cyanosis or edema General Extremity: Negative for calf tenderness or edema Skin Lesions: no lesions Rashes: no rashes Psych mental status grossly normal Labs Labs Labs: Blood Type A POSITIVE Antibody Screen NEGATIVE Hct 36.5 % (37-47) L Hgb 12.1 g/dL (12.0-15.0) Obstetrics US Syphilis Total Ab Non-reactive Rubella IgG Antibody Reactive (Nonreactive) Hep Bs Antigen Non-Reactive (Nonreactive) Chlamydia DNA (RAMON) Negative (Negative) Neisseria gonorrhoeae DNA (RAMON) Negative (Negative) HIV 1&2 Antibody Non-Reactive (Nonreactive) Glucose 1 Hr 50 gm 175 mg/dL (70-140) H Rhogam given: No Assessment & Plan (1) Pre-existing diabetes mellitus during : COMMENT: pt failed gct and gtt prior to 20 weeks. diagnosed with pre-existing diabetes. Dr Dong-started metformin/NSTs at 32 and growth US 36wk (10/21:29%) (2) due to : COMMENT: difficulty nursing in the past, plan third trimester consult with [facility]; note sent to schedule consult (3) Obesity affecting : COMMENT: 1 TM GCT, encouraged healthy weight gain. (4) Supervision of normal : COMMENT: PRR SUGAR 11/18/22 boy Shmuel PC: Jim Luna Spouse: Rashard (5) : QUALIFIERS: Weeks of gestation: 38 weeks Qualified Code(s): Z3A.38 - 38 weeks gestation of COMMENT: GBS neg, anatomy nl,completed, declines carrier and genetic testing PLAN: Plan Patient presents IOL, plan management for with pitocin/AROM. Pain management: none yet. GBS negative. Management of any complications: GDM- nurse to report to me the glucose level when collected. I have reviewed the [facility] and made any clinically relevant updates. 11/07/22 0836 <Electronically signed by Radha Mera DO> Cosigner Signature (if applicable): CC: Dr. Kevin Muñoz MD; Dr. Radha Mera DO~ Signed [facility] Work Phone: [phone]) 176-141710-13-2022 NotePap Smear Specimen AdequacyOctober 2021 10:59pmComment.Satisfactory for evaluation. Endocervical and/or squamous metaplasticcells (endocervical component)are present.LABCITYBIZLIST INTERFACED A#[id number] [facility] Work Phone: Comment on above:Satisfactory for evaluation. Endocervical and/or squamous metaplasticcells (endocervical component)are present.04-12-2022 NotePap Smear Specimen AdequacyOctober 2021 10:59pm Comment.Satisfactory for evaluation. Endocervical and/or squamous metaplasticcells (endocervical component)are present.LABCITYBIZLIST INTERFACED A#[id number] [facility] Work Phone: Comment on above:Satisfactory for evaluation. Endocervical and/or squamous metaplasticcells (endocervical component)are present.04-12-2022 NotePap Smear Specimen AdequacyOctober 2021 10:59pm Comment.Satisfactory for evaluation. Endocervical and/or squamous metaplasticcells (endocervical component)are present.[facility] INTERFACED A#[id number] [facility] Work Phone: Comment on above:Satisfactory for evaluation. Endocervical and/or squamous metaplasticcells (endocervical component)are present.04-12-2022 NotePap Smear Specimen AdequacyOctober 2021 10:59pm Comment.Satisfactory for evaluation. Endocervical and/or squamous metaplasticcells (endocervical component)are present.[facility] INTERFACED A#[id number] [facility] Work Phone: Comment on above:Satisfactory for evaluation. Endocervical and/or squamous metaplasticcells (endocervical component)are present.Evaluation noteNo assessment information availableWHolzer Hospital Work Phone: Evaluation note* Diagnosis Onset Date Resolution Status acute Supervision of normal acute Threatened [facility] Work Phone: Evaluation note* Diagnosis Onset Date Resolution Status acute Supervision of normal acute Threatened acute H/O gestational diabetes in prior , currently acute due to a cute Obesity affecting acute acute Spotting acute Supervision of normal acute Threatened [facility] Work Phone: Evaluation note* Diagnosis Onset Date Resolution Status acute Supervision of normal acute Threatened acute H/O gestational diabetes in prior , currently acute due to a cute Obesity affecting acute acute Supervision of normal acute Threatened acute H/O gestational diabetes in prior , currently acute acute Supervision of normal [facility] Work Phone: Evaluation note* Diagnosis Onset Date Resolution Status acute Supervision of normal acute Threatened resolved due to a cute Obesity affecting acute acute Supervision of normal acute Threatened resolved acute Supervision of normal acute acute Supervision of normal acute Abnormal glucose level acute due to a cute Obesity affecting acute Pre-existing diabetes mellitus during acute acute Supervision of normal [facility] Work Phone: Evaluation note* Diagnosis Onset Date Resolution Status acute Supervision of normal acute Threatened resolved due to a cute Obesity affecting acute acute Supervision of normal acute Threatened resolved acute Supervision of normal acute acute Supervision of normal acute Abnormal glucose level acute due to a cute Obesity affecting acute Pre-existing diabetes mellitus during acute acute Supervision of normal acute Gestational diabetes mellitus noneactive Abnormal glucose level acute due to a cute Obesity affecting acute Pre-existing diabetes mellitus during acute acute Supervision of normal acute [facility] Work Phone: evaluation note* Diagnosis Onset Date Resolution Status acute Supervision of normal acute acute Supervision of normal acute Abnormal glucose level acute due to a cute Obesity affecting acute Pre-existing diabetes mellitus during acute acute Supervision of normal acute Gestational diabetes mellitus noneactive Abnormal glucose level acute due to a cute Obesity affecting acute Pre-existing diabetes mellitus during acute acute Supervision of normal acute due to a cute Obesity affecting acute Pre-existing diabetes mellitus during acute acute Supervision of normal acute [facility] Work Phone: evaluation note* Diagnosis Onset Date Resolution Status Gestational diabetes mellitus noneactive due to a cute Obesity affecting acute Pre-existing diabetes mellitus during acute acute Supervision of normal acute Abnormal glucose level resol dre due to a cute Obesity affecting acute Pre-existing diabetes mellitus during acute acute Supervision of normal acute due to a cute Obesity affecting acute Pre-existing diabetes mellitus during acute acute Supervision of normal acute Abnormal glucose level resol dre due to a cute Obesity affecting acute Pre-existing diabetes mellitus during acute acute Supervision of normal acute due to a cute Obesity affecting acute Pre-existing diabetes mellitus during acute acute Supervision of normal acute Pre-existing diabetes mellitus during acute acute Supervision of normal acute due to a cute Obesity affecting acute Pre-existing diabetes mellitus during acute acute Supervision of normal acute due to a cute Obesity affecting acute Pre-existing diabetes mellitus during acute acute Supervision of normal acute due to a cute Obesity affecting acute Pre-existing diabetes mellitus during acute acute Supervision of normal acute due to a cute Pre-existing diabetes mellitus during acute acute Supervision of normal acute due to a cute Obesity affecting acute Pre-existing diabetes mellitus during acute acute Supervision of normal acute Pre-existing diabetes mellitus during acute acute Supervision of normal acute [facility] Work Phone: Evaluation note* Diagnosis Onset Date Resolution Status due to a cute Obesity affecting acute Pre-existing diabetes mellitus during acute acute Supervision of normal acute Abnormal glucose level resol dre due to a cute Obesity affecting acute Pre-existing diabetes mellitus during acute acute Supervision of normal acute due to a cute Obesity affecting acute Pre-existing diabetes mellitus during acute acute Supervision of normal acute Abnormal glucose level resol dre due to a cute Obesity affecting acute Pre-existing diabetes mellitus during acute acute Supervision of normal acute due to a cute Obesity affecting acute Pre-existing diabetes mellitus during acute acute Supervision of normal acute Pre-existing diabetes mellitus during acute acute Supervision of normal acute due to a cute Obesity affecting acute Pre-existing diabetes mellitus during acute acute Supervision of normal acute due to a cute Obesity affecting acute Pre-existing diabetes mellitus during acute acute Supervision of normal acute due to a cute Obesity affecting acute Pre-existing diabetes mellitus during acute acute Supervision of normal acute due to a cute Pre-existing diabetes mellitus during acute acute Supervision of normal acute due to a cute Obesity affecting acute Pre-existing diabetes mellitus during acute acute Supervision of normal acute Pre-existing diabetes mellitus during acute acute Supervision of normal acute due to a cute Obesity affecting acute Pre-existing diabetes mellitus during acute acute Supervision of normal acute Pre-existing diabetes mellitus during acute acute Supervision of normal acute due to a cute Obesity affecting acute Pre-existing diabetes mellitus during acute acute Supervision of normal acute Pre-existing diabetes mellitus during acute acute Supervision of normal acute due to a cute Obesity affecting acute Pre-existing diabetes mellitus during acute acute Spontaneous vaginal delivery acute Supervision of normal [facility] Work Phone: Advance Directives No Advanced Directives Records Found Advance Directive Response Recorded Date/ Time Living Will No June 10, 019 9:32am Power of Compositor Apprentice No June 10, 2019 9:32am Advance Directive Response Recorded Date/ Time Living Will No June 10 019 8:32am Power of Compositor Apprentice No June 10, 2019 8:32am Advance Directive Response Recorded Date/ Time Living Will No September 28, 2022 11:24am Power of Compositor Apprentice No September 28 11:24am Advance Directive Response Recorded Date/ Time Living Will No November 07, 2022 7 :55am Power of Compositor Apprentice No November 07, 2022 7:55am Chief Complaint and Reason for Visit Chief Complaint EORDER E ORDER early bleeding Reason for Visit Supervision of normal Threatened Chief Complaint EORDER E ORDER early bleeding Amb Documentation NOB LMP 8/7 Reason for Visit Supervision of normal Threatened H/O gestational diabetes in prior , currently due to Obesity affecting Spotting Supervision of normal Threatened Chief Complaint EORDER E ORDER early bleeding Amb Documentation NOB LMP 8/7 13 WK OB, pt req for Wed E ORDERS SCREEN FOR GESTATIONAL DM Reason for Visit Supervision of normal Threatened H/O gestational diabetes in prior , currently due to Obesity affecting Supervision of normal Threatened H/O gestational diabetes in prior , currently Supervision of normal Chief Complaint EORDER E ORDER early bleeding Amb Documentation NOB LMP 8/7 13 WK OB, pt req for Wed E ORDERS SCREEN FOR GESTATIONAL DM GDM fu 17WK OB PREGANCY Reason for Visit Supervision of normal Threatened due to Obesity affecting Supervision of normal Threatened Supervision of normal Supervision of normal Abnormal glucose level due to Obesity affecting Pre-existing diabetes mellitus during Supervision of normal Chief Complaint EORDER E ORDER early bleeding Amb Documentation NOB LMP 8/7 13 WK OB, pt req for Wed E ORDERS SCREEN FOR GESTATIONAL DM GDM fu 17WK OB PREGANCY Gestational diabetes ANATOMY F/U 22wk ob Reason for Visit Supervision of normal Threatened due to Obesity affecting Supervision of normal Threatened Supervision of normal Supervision of normal Abnormal glucose level due to Obesity affecting Pre-existing diabetes mellitus during Supervision of normal Gestational diabetes mellitus Abnormal glucose level due to Obesity affecting Pre-existing diabetes mellitus during Supervision of normal Chief Complaint 13 WK OB, pt req for Wed E ORDERS SCREEN FOR GESTATIONAL DM GDM fu 17WK OB PREGANCY Gestational diabetes ANATOMY F/U 22wk ob est ob 26w Reason for Visit Supervision of normal Supervision of normal Abnormal glucose level due to Obesity affecting Pre-existing diabetes mellitus during Supervision of normal Gestational diabetes mellitus Abnormal glucose level due to Obesity affecting Pre-existing diabetes mellitus during Supervision of normal due to Obesity affecting Pre-existing diabetes mellitus during Supervision of normal Chief Complaint Gestational diabetes ANATOMY F/U 22wk ob est ob 26w 28 WK OB 30 WK OB 32 WK OB/NST 33 WK OB/NST 33 WK OB/NST 34 WK OB/NST NST NST GROWTH 35 WK OB/NST 36 WK NST Reason for Visit Gestational diabetes mellitus due to Obesity affecting Pre-existing diabetes mellitus during Supervision of normal Abnormal glucose level due to Obesity affecting Pre-existing diabetes mellitus during Supervision of normal due to Obesity affecting Pre-existing diabetes mellitus during Supervision of normal Abnormal glucose level due to Obesity affecting Pre-existing diabetes mellitus during Supervision of normal due to Obesity affecting Pre-existing diabetes mellitus during Supervision of normal Pre-existing diabetes mellitus during Supervision of normal due to Obesity affecting Pre-existing diabetes mellitus during Supervision of normal due to Obesity affecting Pre-existing diabetes mellitus during Supervision of normal due to Obesity affecting Pre-existing diabetes mellitus during Supervision of normal due to Pre-existing diabetes mellitus during Supervision of normal due to Obesity affecting Pre-existing diabetes mellitus during Supervision of normal Pre-existing diabetes mellitus during Supervision of normal Chief Complaint ANATOMY F/U 22wk ob est ob 26w 28 WK OB 30 WK OB 32 WK OB/NST 33 WK OB/NST 33 WK OB/NST 34 WK OB/NST NST NST GROWTH 35 WK OB/NST 36 WK NST 36 WK OB/NST 37 WK NST 37 WK OB/NST 38 WK NST VAG DELIVERY SCHEDULED INDUCTION VAG DELIVERY Reason for Visit due to pre gnancy Obesity affecting Pre-existing diabetes mellitus during Supervision of normal Abnormal glucose level due to Obesity affecting Pre-existing diabetes mellitus during Supervision of normal due to Obesity affecting Pre-existing diabetes mellitus during Supervision of normal Abnormal glucose level due to Obesity affecting Pre-existing diabetes mellitus during Supervision of normal due to Obesity affecting Pre-existing diabetes mellitus during Supervision of normal Pre-existing diabetes mellitus during Supervision of normal due to Obesity affecting Pre-existing diabetes mellitus during Supervision of normal due to Obesity affecting Pre-existing diabetes mellitus during Supervision of normal due to Obesity affecting Pre-existing diabetes mellitus during Supervision of normal due to Pre-existing diabetes mellitus during Supervision of normal due to Obesity affecting Pre-existing diabetes mellitus during Supervision of normal Pre-existing diabetes mellitus during Supervision of normal due to Obesity affecting Pre-existing diabetes mellitus during Supervision of normal Pre-existing diabetes mellitus during Supervision of normal due to Obesity affecting Pre-existing diabetes mellitus during Supervision of normal Pre-existing diabetes mellitus during Supervision of normal due to Obesity affecting Pre-existing diabetes mellitus during Spontaneous vaginal delivery Supervision of normal Family History No Family History Records Found Brother (s) Status:Active Comments:1. Father Status:Active Comments:b ~ 196 9 Mother Status:Active Comments:b. ~ 19 73 Sister (s) Status:Active Comments:2. Summary Purpose Additional Source Comments Goals (unrecognized section and content) Goals may be documented in a n alternate sectionGoals may be documented in an alternate sectionGoals may be documented in an alternate sectionGoals may be documented in an alternate sectionGoals may be documented in an alternate sectionGoals may be documented in an alternate sectionGoals may be documented in an alternate sectionGoals may be documented in an alternate sectionGoals may be documented in an alternate section Care Teams (unrecognized sec tion and content) Team Status: Active Member Role Status Dates Dr. Kevin Muñoz MD Family Provider Active Dr. Kevin Muñoz MD Primary Care Provider Active Team Status: Inactive Member Role Status Dates Dr. Kevin Muñoz MD Primary Care Provider, Referrin g Provider Active Martha Rodas PUBLICATIONS PRODUCTION SUPERVISOR, PUBLICATIONS PRODUCTION SUPERVISOR-C Attending Provider Active Team Status: Inactive Member Role Status Dates Dr. Kevin Muñoz MD Primary Care Provider, Referrin g Provider Active Dr. Radha Mera DO Attending Provider Activ e Team Status: Inactive Member Role Status Dates Dr. Kevin Muñoz MD Primary Care Provider, Referrin g Provider Active Mariana Hawkins CNM Attending Provider Active Team Status: Inactive Member Role Status Dates Dr. Kevin Muñoz MD Primary Care Provider, Referrin g Provider Active Dr. Donnell Dong MD Attending Provider Active Team Status: Inactive Member Role Status Dates Dr. Kevin Muñoz MD Primary Care Provider Active Dr. Carmen Salguero MD Attending Provider Active Team Status: Inactive Member Role Status Dates Dr. Kevin Muñoz MD Primary Care Provider Active Dr. Carmen Salguero MD Attending Provider, Referr ing Provider Active Team Status: Inactive Member Role Status Dates Dr. Kevin Muñoz MD Primary Care Provider Active Martha Rodas PUBLICATIONS PRODUCTION SUPERVISOR, PUBLICATIONS PRODUCTION SUPERVISOR-C Attending Provider, Referring Provider Active Team Status: Inactive Member Role Status Dates Dr. Kevin Muñoz MD Primary Care Provider Active Martha Rodas PUBLICATIONS PRODUCTION SUPERVISOR, PUBLICATIONS PRODUCTION SUPERVISOR-C Attending Provider Active Team Status: Inactive Member Role Status Dates Dr. Kevin Muñoz MD Primary Care Provider Active Mariana Hawkins CNM Attending Provider, Referring Pr ovider Active Team Status: Inactive Member Role Status Dates Dr. Kevin Muñoz MD Primary Care Provider, Referrin g Provider Active Brii Lopez CNM Attending Provider Active Team Status: Inactive Member Role Status Dates Dr. Kevin Muñoz MD Primary Care Provider, Referrin g Provider Active Dr. Carmen Salguero MD Attending Provider Active Team Status: Inactive Member Role Status Dates Dr. Kevin Muñoz MD Primary Care Provider, Referrin g Provider Active 36 WK OB/NST Active Martha Rodas PUBLICATIONS PRODUCTION SUPERVISOR, PUBLICATIONS PRODUCTION SUPERVISOR-C Attending Provider Active Team Status: Active Member Role Status Dates Dr. Kevin Muñoz MD Primary Care Provider Active Dr. Radha Mera DO Admit Prov ider, Attending Provider, Referring Provider, Other Provider Active Team Status: Active Member Role Status Dates Dr. Kevin Muñoz MD Primary Care Provider Active Dr. Radha Mera DO Admit Prov ider, Referring Provider, Other Provider Active Martha Rodas PUBLICATIONS PRODUCTION SUPERVISOR, PUBLICATIONS PRODUCTION SUPERVISOR-C Attending Provider Active Team Status: Inactive Member Role Status Dates Dr. Kevin Muñoz MD Primary Care Provider Active Dr. Radha Mera , DO Admit Prov ider, Attending Provider, Referring Provider Active INFORMATION SOURCE (unrecogn ized section and content) DATE CREATED AUTHOR 08/03/2023 [facility] DATE CREATED AUTHOR AUTHOR'S ORGANIZ ATION 12/26/2024 [facility] FOR RECORDS PERTAINING TO PATIENTS WHO ARE OR HAVE BEEN ENROLLED IN A CHEMICAL DEPENDENCY/SUBSTANCEABUSE PROGRAM, SOME INFORMATION MAY BE OMITTED. This clinical summary was aggregated from multiple sources. Caution should be exercised in using it in the provision of clinical care. This summary normalizes information from multiple sources, and as a consequence, information in this document may materially change the coding, format and clinical context of patient data. In addition, data may be omitted in some cases. CLINICAL DECISIONS SHOULD BE BASED ON THE PRIMARY CLINICAL RECORDS. [employer] provides no warranty or guarantee of the accuracy or completeness of information in this document.
== END | disposition home or self-care (01) ==
LOC: US 14:21
PROVIDERS: PCP Orthopaedic Surgery; Referring Provider Nurse Practitioner Family; Visit Provider Nurse Practitioner Family
DX: M79.89 Other specified soft tissue disorders (principal)
CPT/HCPCS: 76536

== ENCOUNTER → 2025-01-18 | Outpatient (CLI) | payer SELFPAY ==
--- NOTE | 2025-01-18 09:39 | MRI_ITS ---
EXAM: ORBIT FACE NECK W/WO CONTRAST CLINICAL HISTORY: MASS ON BACK OF NECK COMPARISON: Correlation with ultrasound of the neck 12/28/2024. TECHNIQUE: Multiplanar and multisequential MRI of the neck soft tissues was performed without and with IV gadolinium based contrast. 17 mL of Clariscan IV contrast was administered. FINDINGS: In the posterior midline aspect of the right upper neck at the level of C3, there is a superficial subcutaneous amorphous and mildly complex/heterogeneous T2 hyperintense fluid collection/cystic structure measuring approximately 2.1 x 1.3 x 1.2 cm (TV, CC, AP). There is associated amorphous gadolinium enhancement, with no discrete solid/nodular component. Superficially there is a small linear tract extending to the skin surface; this is also seen on the previous ultrasound and is highly suggestive of a epidermal inclusion/sebaceous cyst. Given the amorphous gadolinium enhancement and irregular margins with internal debris, there may be associated cyst rupture versus superinfection. Soft tissues of the neck are otherwise normal in appearance. No cervical lymphadenopathy is seen. No additional neck mass or areas of pathologic enhancement. Preserved major vascular flow voids. Normal symmetric appearance of the major salivary glands. Mild cervical spondylotic changes without evidence for high-grade spinal canal narrowing, or abnormal cord signal. MRI/Orbit Face Neck W/WO Contrast IMPRESSION: Small superficial subcutaneous amorphous cystic fluid collection with amorphous enhancement in the upper midline dorsal neck soft tissue as described; most compatible with an epidermal inclusion/sebaceous cyst , possibly complicated by cyst rupture or superinfection. No cervical lymphadenopathy. Reading Location: [id number]
== END | disposition home or self-care (01) ==
PROVIDERS: PCP Orthopaedic Surgery; Referring Provider Surgery Plastic and Reconstructive Surgery; Visit Provider Surgery Plastic and Reconstructive Surgery
DX: R22.1 Localized swelling, mass and lump, neck (principal)
CPT/HCPCS: 70543; A9575